=== PATIENT | female | born 1975 | race Caucasian/White ===

== ENCOUNTER 2016-07-26 09:41 | Outpatient (CLI) | payer MEDICAID ==
[~2016-07-26] VITALS: Ht 157.5 cm; Wt 60.0 kg
[~2016-07-26 09:41] MED LIST: CHOL500019 PO; CLON0.5T3; CLON0.5T3 PO; CLON1TAB PO; CLON2TAB3 PO; CYCL10TA9 PO; D50KC PO; DOXY100C42 PO; FERR325C PO; GABA-488 PO; HYDR25CA PO; NAPR-243 PO; ONDA8TAB13 PO; OSLT75CRX PO; TOPI15CA6 PO; TOPI25TA2 PO; TRAM50TA2 PO
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
[2016-07-26 09:52] VITALS: BP 118/79
[2016-07-26] MEDS ORDERED: CHOL2000 PO (09:56)
[2016-07-26] MEDS ORDERED: TOPI100T11 PO (09:56)
[2016-07-26] MEDS ORDERED: DULO60CA6 PO (09:58)
[2016-07-26] MEDS ORDERED: TIZA4TAB3 PO (09:58)
[2016-07-26] MEDS ORDERED: MULT1TAB69 PO (09:58)
[2016-07-26] MEDS ORDERED: MEDR10TA9 PO (09:58)
[2016-07-26] MEDS ORDERED: DULO30CA3 PO (09:58)
[2016-07-26] MEDS ORDERED: MAGN500C15 PO (10:25)
[2016-07-26 10:32] LABS: BASOPHILS % (AUTO) 1 % (0-10); EOSINOPHILS # (AUTO) 0.1 10^3/uL (0.0-0.3); EOSINOPHILS % (AUTO) 1 % (0-10); LYMPHOCYTES # (AUTO) 1.2 X 10^3 (1.0-4.0); LYMPHOCYTES % (AUTO) 16 % (12-44); MEAN CORPUSCULAR HEMOGLOBIN 24 PG (25-34); MEAN CORPUSCULAR HGB CONC 33 G/DL (32-36); MEAN CORPUSCULAR VOLUME 73 FL (80-99); MEAN PLATELET VOLUME 10.1 FL (7.4-10.4); MONOCYTES # (AUTO) 0.5 X 10^3 (0.0-1.0); MONOCYTES % (AUTO) 7 % (0-12); NEUTROPHILS # (AUTO) 5.5 X 10^3 (1.8-7.8); NEUTROPHILS % (AUTO) 75 % (42-75); PLATELET COUNT 381 10^3/uL (130-400); RED BLOOD COUNT 4.91 10^6/uL (4.35-5.85); RED CELL DISTRIBUTION WIDTH 14.6 % (10.0-14.5); WHITE BLOOD COUNT 7.3 10^3/uL (4.3-11.0)
[2016-07-26 10:50] LABS: ALANINE AMINOTRANSFERASE 34 U/L (0-55); ALBUMIN 4.6 G/DL (3.2-4.5); ANION GAP 8 MMOL/L (5-14); ASPARTATE AMINO TRANSFERASE 19 U/L (5-34); BLOOD UREA NITROGEN 9 MG/DL (7-18); BUN/CREATININE RATIO 12; CALCIUM 9.3 MG/DL (8.5-10.1); CARBON DIOXIDE 22 MMOL/L (21-32); CHLORIDE 109 MMOL/L (98-107); CREATININE SERUM 0.75 MG/DL (0.60-1.30); GFR ESTIMATED > 60; GLUCOSE 97 MG/DL (70-105); POTASSIUM 3.7 MMOL/L (3.6-5.0); SODIUM 139 MMOL/L (135-145); TOTAL PROTEIN 7.6 G/DL (6.4-8.2)
[2016-08-02] MEDS ORDERED: SIME80TA16 PO (15:36)
[2016-08-02] MEDS ORDERED: HYDR-3729 PO (15:36)
[2016-08-02] MEDS ORDERED: DOCU-143 PO (15:36)
[2016-08-02] MEDS ORDERED: IBUP-1773 PO (15:36)
== END 2016-07-26 10:25 | disposition home or self-care (01) ==
LOC: PREOP 09:41
PROVIDERS: ATTEND Obstetrics & Gynecology
DX: Z01.812 Encounter for preprocedural laboratory examination (principal); Z11.2 Encounter for screening for other bacterial diseases; D25.9 Leiomyoma of uterus, unspecified; N93.9 Abnormal uterine and vaginal bleeding, unspecified; D50.9 Iron deficiency anemia, unspecified
CPT/HCPCS: 36415; 80053; 85025; 86850; 86900; 86901; 87081

== ENCOUNTER 2016-08-02 11:59 | Day surgery (SDC) | payer MEDICAID ==
[~2016-08-02] VITALS: Ht 157.5 cm; Wt 60.0 kg
[~2016-08-02 11:59] MED LIST changes: +CHOL2000 PO; +DULO30CA3 PO; +DULO60CA6 PO; +MAGN500C15 PO; +MEDR10TA9 PO; +MULT1TAB69 PO; +TIZA4TAB3 PO; +TOPI100T11 PO
--- OUTSIDE RECORDS SUMMARY | 2016-08-02 12:03 | XMS REPORT | Continuity of Care Document ---
Author Author [facility] Organization [facility] Address Unknown Phone Unavailable Care Team Providers Care [employer] Field Technician Name Role Phone Amy Li [phone] Source Comments Some departments are not documenting in the electronic medical record. If you do not see the information that you expected, contact Release of Information in the Health Information Management department at [phone] for further assistance in locating additional records.[facility] Active Allergies and Adverse Reactions Allergen [...] Taken Blood Pressure 127/79 06/22/2016 9:48 AM PRACTICE CONSULTANT Pulse 113 06/22/2016 9:48 AM PRACTICE CONSULTANT Temperature 36.3 C (97.4 F) 06/22/2016 9:48 AM PRACTICE CONSULTANT Respiratory Rate 16 06/22/2016 9:48 AM PRACTICE CONSULTANT Height 1.575 m (5' 2") 06/22/2016 9:48 AM PRACTICE CONSULTANT Weight 62.143 kg (137 lb) 06/22/2016 9:48 AM PRACTICE CONSULTANT Body Mass Index 25.05 06/22/2016 9:48 AM PRACTICE CONSULTANT Oxygen Saturation 100% 06/22/2016 9:48 AM PRACTICE CONSULTANT Plan of Care Date Type Specialty Providers Description 09/14/2016 Appointment Anesthesia Pain Sergio Haney MD [address] [place] [address] [phone] (Fax) Health Maintenance Due Date Last Done Comments Physical (Comprehensive) 1981 Exam Pertussis Vaccine 1985 Tetanus Vaccine 1991 Influenza Vaccine 03/18/2016 Cervical Cancer Screening 09/04/2018 09/04/2015 Results from Last 3 Months Not on file
--- OUTSIDE RECORDS SUMMARY | 2016-08-02 12:03 | XMS REPORT | Continuity of Care Document ---
Author Author [facility] Organization [facility] Address Unknown Phone Unavailable Care Team Providers Care Risk Assessment Analyst Name Role Phone Amy Li [phone] Source Comments Some departments are not documenting in the electronic medical record. If you do not see the information that you expected, contact Release of Information in the Health Information Management department at [phone] for further assistance in locating additional records.[facility] Active Allergies and Adverse Reactions Allergen [...] Description 06/22/2016 Office Visit Anesthesia Pain Sergio aHney MD Fibromyalgia syndrome (Primary Dx); Amplified musculoskeletal pain, diffuse 05/03/2016 Refill Anesthesia Pain Sergio Haney MD Social History Tobacco Use Types Packs/Day Years Used Date Never Smoker Smokeless Tobacco: Never Used Alcohol Use Drinks/Week oz/Week Comments No 0 Standard 0.0 drinks or equivalent Last Filed Vital Signs Vital Sign Reading Time Taken Blood Pressure 127/79 06/22/2016 9:48 AM CIGAR MACHINE FEEDER Pulse 113 06/22/2016 9:48 AM CIGAR MACHINE FEEDER Temperature 36.3 C (97.4 F) 06/22/2016 9:48 AM CIGAR MACHINE FEEDER Respiratory Rate 16 06/22/2016 9:48 AM CIGAR MACHINE FEEDER Height 1.575 m (5' 2") 06/22/2016 9:48 AM CIGAR MACHINE FEEDER Weight 62.143 kg (137 lb) 06/22/2016 9:48 AM CIGAR MACHINE FEEDER Body Mass Index 25.05 06/22/2016 9:48 AM CIGAR MACHINE FEEDER Oxygen Saturation 100% 06/22/2016 9:48 AM CIGAR MACHINE FEEDER Plan of Care Date Type Specialty Providers Description 09/14/2016 Appointment Anesthesia Pain Sergio Haney MD [address] [place] [address] [phone] (Fax) Health Maintenance Due Date Last Done Comments Physical (Comprehensive) 1981 Exam Pertussis Vaccine 1985 Tetanus Vaccine 1991 Influenza Vaccine 03/18/2016 Cervical Cancer Screening 09/04/2018 09/04/2015 Results from Last 3 Months Not on file
[2016-08-02] MEDS ORDERED: ceFAZolin 1,000 MG (ANCEF) VIAL ONE (12:21)
[2016-08-02] MEDS ORDERED: metroNIDAZOLE 500MG/100ML IVPB 100 ML ONE (12:22)
[2016-08-02] MEDS ORDERED: NORMAL SALINE (BAXTER MINI) 50 ML IV ONE (12:22)
[2016-08-02] MEDS: LACTATED RINGERS 1,000 ML IV PRN ×3 (12:38→15:40)
[2016-08-02] MEDS ORDERED: SEVOFLURANE (ULTANE) 15 ML INHAL SOLN ONE ×3 (12:39→15:21)
[2016-08-02] MEDS ORDERED: ROCURONIUM 50 MG/5 ML (ZEMURON) VIAL IV ONE ×2 (12:39→14:26)
[2016-08-02] MEDS ORDERED: proPOfol 200 MG/20 ML (DIPRIVAN) VIAL IV ONE (12:39)
[2016-08-02] MEDS ORDERED: DEXAMETHASONE PF 10 MG/ML (DECADRON) VIAL ONE (12:39)
[2016-08-02] MEDS ORDERED: LACTATED RINGERS 1,000 ML IV ONE ×3 (12:39→15:21)
[2016-08-02] MEDS ORDERED: fentaNYL INJECTION 250 MCG/5 ML AMP ONE (12:39)
[2016-08-02] MEDS ORDERED: LIDOCAINE PF 2% 10 ML (XYLOCAINE) AMP ONE (12:39)
[2016-08-02] MEDS ORDERED: ONDANSETRON 4 MG/2 ML (SDV) Z0FRAN ONE ×2 (12:39→14:41)
--- NOTE | 2016-08-02 12:41 | Progress Note-Standard ---
Standard Progress Note Progress Notes/Assess & Plan Date Seen 08/02/16 Assess & Plan/Chief Complaint H&P from 07/26/16: Gynecology Visit * Patient: MARCIA GEORGE Age: 41 years Sex: Female : 1975 Associated Diagnoses: None Author: Allison LANGLEY, Dolores Visit Information Visit type: Scheduled follow-up. Accompanied by: No one. Source of history: Self, Medical record. Referral source: Self. History limitation: None. 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 Reports still bleeding off and on but not heavy. History of Present Illness Here for pre-op visit Bleeding/spotting off and on, taking provera TID Still would like to proceed with hysterectomy. See last HPI: 41 y/o here for referral for AUB, HMB, fibroids Pt reports that she had a Nexplanon placed last year for contraception. She bled daily for 8 months and it was subsequently removed. She then was put on Depo Provera (in November 2015) as well as tried OCPs for irregular bleeding which as continued. She reports continued heavy bleeding every 14-18 days, lasting 5- 7 days, heavy for first 3 days changing a super tampon per hour. Everytime she changes her tampon, she has large clots. Previously (before Nexplanon) had normal monthly cycles, not heavy, no clots. No dizziness/lightheadedness/CP/ SOA. Does interfere with her work (on her feet all day at [employer] where she works). She believes she is finished childbearing. OBHx: 1991 1998 @33 wga 4lb 2002 2008 GYNHx: Menses 13 x 14-18 x 5-7, heavy as above. Last pap smear Mar 2016 by Cheryl Russell (record received and reviewed, NIL). Remote h/o chlamydia 13 years ago, none since. Not currently sexually active, 20 lifetime partners. Review of Systems General - negative except per HPI Skin - negative except per HPI HEENT - negative except per HPI Breasts - negative except per HPI Respiratory - negative except per HPI Cardiovascular - negative except per HPI Gastrointestinal - negative except per HPI Urinary - negative except per HPI Gynecologic - see HPI 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 - negative except per HPI Endocrine - negative except per HPI Hematologic - negative except per HPI Neurologic - negative except per HPI Psychiatric - negative except per HPI Health Status Allergies: Allergic Reactions (Selected) Severity Not Documented Amoxicillin (No reactions were documented) Sulfa drug (No reactions were documented) Medications: (Selected) Prescriptions Prescribed medroxyPROGESTERone 10 mg oral tablet: See Instructions, Instructions: TAKE 1 TABLET BY MOUTH THREE TIMES DAILY, # 90 tab(s), 0 Refill(s), Type: Maintenance, Pharmacy: [facility] [id number] Documented Medications Documented Cymbalta: po, 0 Refill(s), Type: Maintenance Feosol 325 mg (65 mg elemental iron) oral tablet: 1 tab(s) ( 325 mg ), po, bid, 0 Refill(s), Type: Maintenance KlonoPIN: ( 3 mg ), po, daily, 0 Refill(s), Type: Maintenance Topamax: po, bid, 0 Refill(s), Type: Maintenance Vitamin D3 2000 intl units oral capsule: 1 cap(s) ( 2,000 International Unit ), po, daily, 0 Refill(s), Type: Maintenance magnesium oxide: po, 0 Refill(s), Type: Maintenance multivitamin with minerals (w/ Iron): 0 Refill(s), Type: Maintenance tiZANidine 4 mg oral capsule: 2 cap(s) ( 8 mg ), po, tid, 0 Refill(s), Type: Maintenance Problem list: All Problems (Selected) Iron deficiency / SNOMED CT [id number] / Confirmed Vitamin D deficiency / SNOMED CT [id number] / Confirmed Hematochezia / SNOMED CT 1791737370 / Confirmed Anemia / SNOMED CT 615229988 / Confirmed Depression / SNOMED CT [id number] / Confirmed Fibromyalgia / SNOMED CT 470934214 / Confirmed Histories Past Medical History: Active Iron deficiency ([id number]) Vitamin D deficiency ([id number]) Hematochezia (6117826287) Depression ([id number]) Fibromyalgia (873964849) Resolved (514963738): Onset on 02/10/2008 at 33 years. Resolved on 10/26/2008 at 33 years. ([id number]): Onset on 10/31/2001 at 26 years. Resolved on 07/24/2002 at 27 years. ([id number]): Onset on 03/25/1998 at 23 years. Resolved on 11/18/1998 at 23 years. ([id number]): Onset on 10/07/1991 at 16 years. Resolved on 07/06/1992 at 17 years. Lyme disease (06600232): Resolved. (751308595): Resolved. Family History: CA - Breast cancer Mother Diabetes mellitus type II Grandfather (P) Breast Ca Mother Alzheimer disease Grandfather (P) Hyperlipidemia..... Father Procedure history: Scope/camera, device ([id number]). Comments: 10/15/2014 10:06 AM - Vidya Wells colon/egd Social History: Tobacco Assessment Never smoker Physical Examination Vital Signs 07/26/2016 10:41 AM OIL FILTERS INSPECTOR Systolic Blood Pressure 118 mmHg Diastolic Blood Pressure 66 mmHg Mean Arterial Pressure 83 mmHg BP Site Left arm Measurements from flowsheet : Measurements 07/26/2016 10:41 AM OIL FILTERS INSPECTOR Height Measured - Standard 62 in Weight Measured - Standard 133 lb BSA 1.62 m2 Body Mass Index 24.32 kg/m2 General: Alert and oriented, No acute distress. Respiratory: Respirations are non-labored. Cardiovascular: Normal peripheral perfusion. Psychiatric: Cooperative, Appropriate mood & affect. Review / Management Results review: Lab results 06/18/2016 12:20 PM OIL FILTERS INSPECTOR TSH 0.469 uIU/mL WBC 7.3 RBC 4.79 Hgb 11.4 g/dL LOW Hct 35.7 % LOW MCV 74.5 fL LOW MCH 23.8 pg LOW MCHC 31.9 g/dL RDW CV 15.4 % HI RDW (sd) 40.9 fL MPV 10.[address] 385 Lymphocytes % 19.3 % Abs Lymphs 1.41 Neutrophils % 67.0 % Abs Neutrophils 4.89 Monocytes % 11.4 % Abs Monocytes 0.83 HI Eosinophils % 1.8 % Abs Eosinophils 0.13 Basophils % 0.5 % Abs Basophils 0.04 Impression and Plan Plan: 41 y/o with AUB, HMB, uterine fibroids, iron deficiency anemia here for pre-op visit, RA TLH/bilat salpingectomy scheduled 08/02/16. Fibromyalgia on cymbalta Endometrial bx neg CBC - iron deficiency anemia TSH - nml Procedure was discussed, risks were also reviewed. Informed consent obtained today (written consent prior to OR). All questions were answered and patient was given information on preparation for surgery. Previously given packet on da Rod hysterectomy. Risks: She is aware of the risks of surgery, including injury to the bowel/bladder/ ureter/vessels and nerves which may need to be repaired intraoperatively or postoperatively. She is also aware of the risk of bowel/ureteral/bladder fistula. Other risks including infection, DVT/PE, wound separation/cellulitis/ evisceration, pulmonary/cardiac complications or were also discussed. She is also aware of the potential need for blood transfusion and risks associated with blood, including HIV, Hepatitis. She is aware of the risks of perforation of the bowel/blood vessels during insertion of the ports. She is aware of the risk of conversion to an open approach (especially of concern given multiple fibroids, and I would not advise power morcellation in this case). She is also aware of the risks that can be noted during or after a robotic approach, including cautery injury to the bowel/bladder/ureter/vessels. This may require intraoperative repair and conversion to open. May develop postoperatively which may require repair. She is aware of injury to nerves/musculoskeletal system which can be permanent and disabling. She is aware that although the hysterectomy will stop her uterine bleeding and she can no longer become . She is aware of my plan for ovarian preservation, along with bilateral salpingectomy to decrease risk of ovarian cancer although it is not eliminated. She is not on blood thinners. She does not take a beta monty. She does not require a bowel prep. . Signature Line Signed and Authored by Dolores Cooper MD on 07/26/2016 08:40 PM OIL FILTERS INSPECTOR Charted Date: July 26, 2016 8:35 PM OIL FILTERS INSPECTOR Subject / Title: Gynecology Visit * Performed By: Dolores Cooper MD on July 26, 2016 8:40 PM OIL FILTERS INSPECTOR Electronically Signed By: Dolores Cooper MD on July 26, 2016 8:40 PM OIL FILTERS INSPECTOR Visit Information: [id number], [facility], Outpatient, 07/26/2016 - 07/28/2016 DOLORES COOPER MD Aug 02, 2016 12:41
[2016-08-02] MEDS ORDERED: LACTATED RINGERS 1,000 ML IV PRN ×2 (12:44→12:45)
[2016-08-02] MEDS ORDERED: MIDAZOLAM 2 MG/2 ML (VERSED) VIAL IV ONE ×2 (12:45)
[2016-08-02] MEDS ORDERED: ceFAZolin 1 GM/NS 50 ML IVPB IV ONE ×2 (12:45)
[2016-08-02] MEDS ORDERED: metroNIDAZOLE 500 MG/100 ML IVPB (PRE-MIX) IV ONE (12:45)
[2016-08-02 12:52] VITALS: BP 118/84
[2016-08-02] MEDS ORDERED: BUP/EPI 0.25% 1:200,000 (MARCAINE) 30 ML VIAL ONE (13:20)
[2016-08-02] MEDS ORDERED: GLYCOPYRROLATE 0.2 MG/ML (ROBINUL) 2 ML VIAL ONE (14:04)
[2016-08-02] MEDS ORDERED: morphine INJ 10 MG/ML 1ML (SYR OR VIAL) ONE (14:41)
[2016-08-02] MEDS ORDERED: KETOROLAC 30 MG/ML VIAL ONE (14:41)
--- NOTE | 2016-08-02 15:29 | Progress Note-Post Operative ---
Post-Operative Progess Note Pre-Operative Diagnosis UTERINE FIBROIDS, AUB, IRON DEFICIENCY ANEMIA Post-Operative Diagnosis Same Post-Op Procedure Note Date of Procedure: Aug 02, 2016 Name of Procedure: Robotic assisted total laparoscopic hysterectomy, bilateral salpingectomy Procedure Note/Findings See dictated note Anesthesia Type General Estimated blood loss (mL): Minimal Packing: None Specimen(s) collected Uterus/cervix, bilateral tubes to pathology JAIRO LENZ MD Aug 02, 2016 15:29
[2016-08-02] MEDS ORDERED: DOCU-143 PO (15:36)
[2016-08-02] MEDS ORDERED: SIME80TA16 PO (15:36)
[2016-08-02] MEDS ORDERED: HYDR-3729 PO (15:36)
[2016-08-02] MEDS ORDERED: IBUP-1773 PO (15:36)
--- NOTE | 2016-08-02 15:37 | Discharge Inst-Women's Service ---
Discharge Inst-Women's Serv Depart Medication/Instructions New, Converted or Re-Newed RX: RX on Chart Final Diagnosis Uterine fibroids, abnormal uterine bleeding, iron deficiency anemia Consults/Follow Up Additional Follow Up: Yes Orders/Referrals 10-[address] Cooper Activity Driving Instructions: No Driving for 1 Week (or off narcotic pain medications or until instructed by your insurance company) NO SMOKING: NO SMOKING Nothing Inside Vagina: No Douching, No [place], No Tampons Other Activity No heavy lifting > 10 lb, no strenuous activity until cleared by Dr. Cooper Diet Discharge Diet: No Restrictions Symptoms to Report to : Bleeding Excessive, Pain Increased, Fever Over 101 Degrees F, Pain/Pressure in Chest, Vaginal Bleeding Increase, Dizziness/Fainting , Nausea/Vomiting, Shortness of Breath For Any Problems or Questions: Contact Your Physician Skin/Wound Care Infection Signs and Symptoms: Increased Redness, Foul Odor of Wound, Increased Drainage Operative Area Clean and Dry: Keep Incision Clean/Dry Stitches/Nick/Dermabond: Dermabond Bathing Instructions: JAIRO Chowdhury MD Aug 02, 2016 15:37
[2016-08-02] MEDS ORDERED: MEPERIDINE (DEMEROL) INJ 50 MG/ML IVP PRN (16:00)
[2016-08-02] MEDS ORDERED: ONDANSETRON 4 MG/2 ML (SDV) Z0FRAN IVP PRN (16:00)
[2016-08-02] MEDS: morphine INJ 10 MG/ML 1ML (SYR OR VIAL) IVP PRN ×2 (16:25→16:35)
--- NOTE | 2016-08-02 16:27 | OB/GYN Operative Report ---
Operative Report Date of Procedure: August 02, 2016 Preoperative Diagnosis: 41 y/o female with uterine fibroids, abnormal uterine bleeding, iron deficiency anemia Postoperative Diagnosis: Same Procedure: Robotic assisted total laparoscopic hysterectomy, bilateral salpingectomy Surgeon: Dolores Cooper MD Anesthesia: General endotracheal Estimated Blood Loss: Minimal Specimens: Uterus/cervix, bilateral fallopian tubes to pathology Indications for Procedure: This is a 41 year old female with symptomatic uterine fibroids, abnormal uterine bleeding and iron deficiency anemia who was referred [place] by Cheryl Russell with [facility]. Pre-operative work- up revealed a normal endometrial biopsy. Risks, benefits and alternatives were discussed in detail with the patient and she elected to proceed and provided informed consent. Findings: Normal appearing uterus (fibroids likely submucosal in nature). Bilateral ovaries normal in appearance, conserved. Bilateral tubes normal with exception of small right paratubal cyst. Normal appearing liver, bowel, stomach , bladder, appendix. Procedure: The patient was taken to the operating room where sequential compression devices were placed prior to induction of anesthesia. Intravenous fluids were running. General endotracheal anesthesia was obtained without difficulty. Padmini- operative Ancef and Flagyl were administered. She was then repositioned in the dorsal lithotomy position with the use of Yellofin stirrups. She was prepped and draped in the typical sterile fashion. A lundberg catheter was placed in the bladder. A weighted speculum was placed in the vagina. The anterior lip of the cervix was grasped with a single tooth tenaculum. The uterus was sounded to 8cm. The medium sized V-Care uterine manipulator was then placed in the uterus to allow for manipulation, and the occluder balloon was insufflated. Gloves were changed and the attention was turned to the abdomen. 0.25% marcaine was injected into the skin where the planned incision was to be made. A 12 mm incision was made approximately 3cm superior to the umbilicus. The Veress needle was advanced into the peritoneal cavity in the umbilicus. The opening pressure was 3mm Hg. CO2 gas was then utilized to insufflate the abdomen to a pressure of 15 mmHg. The Veress needle was then removed and an 8mm trochar was advanced into the peritoneal cavity. This was confirmed with the camera. An intra-abdominal survey revealed lack of injury to the underlying structures. 0.25% marcaine was then injected on the left 10cm lateral and 2-3 cm inferior to the original incision for an 8 mm port site. We injected on the right side as well, for an 8 mm port site 10cm lateral and 2-3cm inferior to the original incision.. All ports were then placed under direct visualization. The patient was then placed in steep Trendelenburg position. The robot was then brought in from the patient's left side for side-docking, and docking was accomplished without difficulty. I then started the robotic portion of the procedure, with the fenestrated biopolar device in the left arm and the monopolar scissors in the right. The distal left uterine tube was grasped and the monopolar shirlene were utilized to dissect it away from the ovary and off the mesosalpinx in a proximal direction, leaving the proximal most portion attached to the uterus. The left utero- ovarian ligament was isolated, coagulated and transected. I continued this dissection in an anterior direction, opening the broad ligament and then dissecting the anterior peritoneum off the lower uterine segment and creating a bladder flap. I then moved to the right side after the uterus was moved laterally to the left. The distal right uterine tube was grasped and the monopolar shirlene were utilized to dissect it away from the ovary and off the mesosalpinx in a proximal direction, leaving the proximal most portion attached to the uterus. The utero-ovarian ligament was coagulated and transected. The dissection was continued in an anterior direction, opening the broad ligament and dissecting the anterior peritoneum off the lower uterine segment and completing the bladder flap. The posterior leaves of the broad ligament were then dissected and the uterine artery was skeletonized. The uterine artery was then isolated, coagulated and transected on the right. The vessels were allowed to fall away laterally. The same was completed on the left, with the posterior leaves of the broad ligament dissected and the uterine artery was skeletonized. The left uterine artery was then isolated, coagulated and transected. The vessels were allowed to fall away laterally. I started the colpotomy on the right side medial to the coagulated uterine artery. The blue cervical cup was noted. The colpotomy was continued in a clockwise direction and completed anteriorly. The uterus was then delivered through the vagina without difficulty. The vaginal cuff was then closed with 2-0 V-loc, starting with the left apex, incorporating the uterosacral ligament. The suture was not long enough to close the entire length of the cuff, thus another was utilized starting at the right apex, incorporating the uterosacral ligament. Following this, the vaginal cuff was noted to be hemostatic. All pedicles were inspected and were noted to be hemostatic. The robot was then undocked. FloSeal was placed on all pedicles to aid in hemostasis. The vaginal cuff was examined digitally and found to be intact. It was noted at this time that urine was not draining adequately from the bladder and the tip of the lundberg was found to be slightly adherent to the bladder wall (we were unable to deflate the lundberg balloon with the typical empty syringe). The urine was clear which had thus far drained from the bladder. The tip of the catheter was cut and a new lundberg catheter was placed into the bladder with sterile technique. I then instructed the OR staff to backfill the bladder with 180cc of normal saline; the bladder was intact without evidence of injury under this laparoscopic examination. Following this, one final check of the abdomen revealed adequate hemostasis. The gas was then allowed to escape the abdomen and all instruments were removed from the abdomen. The skin was closed using 4-0 Monocryl in a subcuticular stitch. Following the case, instrument counts were correct. The patient was repositioned in the supine position and awakened from general anesthesia without difficulty. She was taken to recovery in stable condition. She will be observed overnight. Urine was blood tinged but this was thought to be due to excessive bladder manipulation during the case due to the events noted above; this will be closely monitored overnight. Complications: None Disposition: Recovery, stable DOLORES COOPER MD Aug 02, 2016 16:27
[2016-08-02 17:15] VITALS: BP 116/78
[2016-08-02] MEDS ORDERED: LACTATED RINGERS 1,000 ML IV SCH (17:17)
[2016-08-02] MEDS ORDERED: ANTACID SUSP 30 ML UDC (MYLANTA) PO PRN (17:30)
[2016-08-02] MEDS ORDERED: DOCUSATE SODIUM 100 MG (COLACE) CAP PO PRN (17:30)
[2016-08-02] MEDS ORDERED: clonazePAM 1 MG (KlonoPIN) TAB PO PRN (17:30)
[2016-08-02] MEDS ORDERED: HYDROcodone/APAP 7.5 MG/325 MG (LORTAB, LORCET PLUS) TABLET PO PRN (17:30)
[2016-08-02] MEDS ORDERED: KETOROLAC 30 MG/ML VIAL IV PRN (17:30)
[2016-08-02] MEDS ORDERED: ZOLPIDEM 5 MG (AMBIEN) TAB PO PRN (17:30)
[2016-08-02] MEDS ORDERED: SIMETHICONE 80 MG (MYLICON) CHEW PO PRN (17:30)
[2016-08-02] MEDS ORDERED: ONDANSETRON 4 MG/2 ML (SDV) Z0FRAN IV PRN (17:30)
[2016-08-02 21:00] VITALS: BP 96/58
[2016-08-02] MEDS ORDERED: toPIRamate 100 MG (TOPAMAX) TAB PO SCH (21:00)
[2016-08-03 00:30] VITALS: BP 93/58
[2016-08-03 04:00] VITALS: BP 118/72
[2016-08-03] MEDS ORDERED: IBUPROFEN 600 MG (MOTRIN) TAB PO PRN (08:15)
[2016-08-03 08:25] VITALS: BP 107/53
[2016-08-03] MEDS ORDERED: DULoxetine 30 MG (CYMBALTA) CAP PO SCH (09:00)
== END 2016-08-03 09:30 | disposition home or self-care (01) ==
LOC: SDC 11:59 → WS 17:19 → SDC 08-03 09:30
PROVIDERS: ATTEND Obstetrics & Gynecology
DX: D25.0 Submucous leiomyoma of uterus (principal); D25.1 Intramural leiomyoma of uterus; D50.0 Iron deficiency anemia secondary to blood loss (chronic); N83.8 Other noninflammatory disorders of ovary, fallopian tube and broad ligament; N72 Inflammatory disease of cervix uteri
CPT/HCPCS: 84703; 94664; 96361; 96375

== ENCOUNTER 2016-10-05 14:29 | Emergency (ER) | payer MEDICAID ==
[~2016-10-05] VITALS: Ht 157.5 cm; Wt 60.3 kg
[~2016-10-05 14:29] MED LIST changes: +DOCU-143 PO; +HYDR-3729 PO; +IBUP-1773 PO; +SIME80TA16 PO
[2016-10-05] MEDS ORDERED: DULO60CA6 PO (14:57)
[2016-10-05] MEDS ORDERED: TETANUS,DIPTH,PERTUSS P/F (BOOSTRIX) 0.5 ML VIAL IM ONE (15:00)
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
[2016-10-05] MEDS ORDERED: HYDR-3816 PO (15:44)
[2016-10-05] MEDS ORDERED: CEFP500T4 PO (15:44)
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
[2016-10-05 15:51] VITALS: BP 127/87
== END 2016-10-05 15:51 | disposition home or self-care (01) ==
LOC: EDUNIT# 14:29 → ER 14:31
DX: S02.2XXA Fracture of nasal bones, initial encounter for closed fracture (principal); H11.32 Conjunctival hemorrhage, left eye; S00.12XA Contusion of left eyelid and periocular area, initial encounter; R04.0 Epistaxis; Z23 Encounter for immunization; Y04.0XXA Assault by unarmed brawl or fight, initial encounter; Y92.009 Unspecified place in unspecified non-institutional (private) residence as the place of occurrence of the external cause; Y99.8 Other external cause status
CPT/HCPCS: 70450; 70486; 90471; 99283

== ENCOUNTER 2016-11-21 18:23 | Emergency (ER) | payer OTHER, MEDICAID ==
[~2016-11-21] VITALS: Ht 157.5 cm; Wt 58.1 kg
[~2016-11-21 18:23] MED LIST changes: +CEFP500T4 PO; +HYDR-3816 PO
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
[2016-11-21 21:40] VITALS: BP 126/80
== END 2016-11-21 21:40 | disposition home or self-care (01) ==
LOC: EDUNIT# 18:23 → ER 18:24
DX: S66.911A Strain of unspecified muscle, fascia and tendon at wrist and hand level, right hand, initial encounter (principal); S16.1XXA Strain of muscle, fascia and tendon at neck level, initial encounter; S50.01XA Contusion of right elbow, initial encounter; V43.52XA Car driver injured in collision with other type car in traffic accident, initial encounter; Y92.414 Local residential or business street as the place of occurrence of the external cause; Y99.8 Other external cause status
CPT/HCPCS: 99282

== ENCOUNTER → 2017-01-11 | Outpatient (CLI) | payer MEDICAID, OTHER ==
--- NOTE | 2017-01-11 17:20 | Diagnostic Imaging Report ---
EXAMINATION: Transabdominal and transvaginal pelvic ultrasound. INDICATION: Pelvic pain. History of hysterectomy. FINDINGS: The uterus is surgically absent. The urinary bladder appears unremarkable. The right ovary is 2.9 x 1.9 x 1.6 cm with venous and arterial waveforms demonstrated. The hypoechoic lesion measuring 1.7 x 1 x 1.2 cm within the right ovary is seen, indeterminate. This could be related to a hemorrhagic follicle. It is slightly heterogenous with no definitive blood flow within it. The left ovary is obscured by bowel gas. IMPRESSION: Indeterminate 1.7 cm hypoechoic lesion within the right ovary, possibly related to a hemorrhagic follicle. The left ovary is not seen. Dictated by: Dictated on workstation # [id number]
== END ==
LOC: RAD 09:56
PROVIDERS: ATTEND Obstetrics & Gynecology
DX: N83.9 Noninflammatory disorder of ovary, fallopian tube and broad ligament, unspecified (principal); Z90.710 Acquired absence of both cervix and uterus; R10.2 Pelvic and perineal pain
CPT/HCPCS: 76830; 76856

== ENCOUNTER 2017-07-25 16:14 | Observation (INO) | payer MEDICAID ==
[~2017-07-25] VITALS: Ht 157.5 cm; Wt 54.7 kg
--- NOTE | 2017-07-25 16:20 | ED Psychosocial ---
General Stated Complaint: OVERDOSE Source: patient, EMS Exam Limitations: no limitations History of Present Illness Time seen by provider: 16:19 Initial Comments EMS called by a friend with reports of overdose. Patient took 15-20 tizanidine 4mg at about 3 or 3:15 this afternoon. She did this because she wanted to go to sleep and never wake up. She is more depressed than usual today because she's having an affair and she cannot find them and she is having an affair with today. Allergies and Home Medications Allergies Coded Allergies: Sulfa (Sulfonamide Antibiotics) (Verified Allergy, Unknown, 11/21/16) amoxicillin (Verified Allergy, Unknown, RASH, 07/26/16) Home Medications Cefprozil 500 Mg Tablet, 500 MG PO BID, #20 Prescribed by: BASIM KITCHEN on 10/05/16 1544 Clonazepam 1 Mg Tablet, 1 MG PO TID, (Reported) Duloxetine HCl 60 Mg Capsule.dr, 120 MG PO DAILY, (Reported) Hydrocodone/Acetaminophen 1 Each Tablet, 1-2 EACH PO Q4H, #20 Prescribed by: BASIM KITCHEN on 10/05/16 1544 Tizanidine HCl 4 Mg Tablet, 2-4 MG PO TID PRN for MUSCLE SPASMS, (Reported) take 1/2 to 1 (4mg) tab Topiramate 100 Mg Tablet, 100 MG PO HS, (Reported) Constitutional: see HPI EENTM: see HPI Respiratory: no symptoms reported Cardiovascular: no symptoms reported Genitourinary: no symptoms reported 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: no symptoms reported Skin: no symptoms reported Psychiatric/Neurological: No Symptoms Reported Past Jfxzqxa-Mnttok-Rusudv Hx Patient Social History Recent Foreign Travel: No Contact w/Someone Who Travel: No Recent Hopitalizations: No Immunizations Up To Date Tetanus Booster (TDap): Unknown Date of Influenza Vaccine: Apr 25, 2016 Seasonal Allergies Seasonal Allergies: No Surgeries Surgeries: Hysterectomy Neurological Neurological Disorders: Headaches /Migraines Reproductive System Hx Reproductive Disorders: Yes (UTERINE FIBROIDS, AUB) 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 Disorders: Fibromyalgia HEENT Loss of Vision: Bilateral Hearing Impairment: Denies Psychosocial Behavioral Health Disorders: Anxiety Family Medical History Family Medial History: Alcoholism 19 FATHER Diabetes mellitus 19 FATHER FH: breast cancer 19 MOTHER Hypertension 19 FATHER Psychosocial problem 19 MOTHER Physical Exam Vital Signs Vital Sign - Last 12Hours 07/25/17 16:29 Temp 98.3 Pulse 60 Resp 18 B/P (MAP) 148/85 (106) Pulse Ox 98 Capillary Refill : General Appearance: WD/WN, no apparent distress HEENT: PERRL/EOMI, normal ENT inspection Neck: non-tender, full range of motion Respiratory: no respiratory distress, no accessory muscle use Cardiovascular: regular rate, rhythm, no murmur Gastrointestinal: normal bowel sounds, non tender, soft Neurologic/Psychiatric: alert, oriented x 3, other (arousable to verbal stimuli , listless) Appearance/Memory: appropriate appearance, appropriate insight Behavior/Eye Contact: cooperative, good eye contact Skin: normal color, warm/dry Progress/Results/Core Measures Results/Orders Lab Results Laboratory Tests Test 07/25/17 16:24 07/25/17 17:12 Range/Units White Blood Count 9.6 4.3-11.0 10^3/uL Red Blood Count 4.48 4.35-5.85 10^6/uL Hemoglobin 11.3 L 11.5-16.0 G/DL Hematocrit 33 L 35-52 % Mean Corpuscular Volume 74 L 80-99 FL Mean Corpuscular Hemoglobin 25 25-34 PG Mean Corpuscular Hemoglobin Concent 34 32-36 G/DL Red Cell Distribution Width 13.8 10.0-14.5 % Platelet Count 430 H 130-400 10^3/uL Mean Platelet Volume 9.9 7.4-10.4 FL Neutrophils (%) (Auto) 78 H 42-75 % Lymphocytes (%) (Auto) 15 12-44 % Monocytes (%) (Auto) 6 0-12 % Eosinophils (%) (Auto) 2 0-10 % Basophils (%) (Auto) 1 0-10 % Neutrophils # (Auto) 7.5 1.8-7.8 X 10^3 Lymphocytes # (Auto) 1.4 1.0-4.0 X 10^3 Monocytes # (Auto) 0.5 0.0-1.0 X 10^3 Eosinophils # (Auto) 0.1 0.0-0.3 10^3/uL Basophils # (Auto) 0.1 0.0-0.1 10^3/uL Sodium Level 139 135-145 MMOL/L Potassium Level 3.7 3.6-5.0 MMOL/L Chloride Level 110 H 98-107 MMOL/L Carbon Dioxide Level 21 21-32 MMOL/L Anion Gap 8 5-14 MMOL/L Blood Urea Nitrogen 8 7-18 MG/DL Creatinine 0.71 0.60-1.30 MG/DL Estimat Glomerular Filtration Rate > 60 BUN/Creatinine Ratio 11 Glucose Level 239 H 70-105 MG/DL Calcium Level 8.4 L 8.5-10.1 MG/DL Total Bilirubin 1.0 0.1-1.0 MG/DL Aspartate Amino Transf (AST/SGOT) 15 5-34 U/L Alanine Aminotransferase (ALT/SGPT) 15 0-55 U/L Alkaline Phosphatase 65 40-136 U/L Total Protein 6.8 6.4-8.2 GM/DL Albumin 3.7 3.2-4.5 GM/DL Salicylates Level < 5.0 L 5.0-20.0 MG/DL Acetaminophen Level < 10 L 10-30 UG/ML Serum Alcohol < 10 <10 MG/DL Urine Color YELLOW Urine Clarity SLIGHTLY CLOUDY Urine pH 7 5-9 Urine Specific [place] 1.010 L 1.016-1.022 Urine Protein 2+ H NEGATIVE Urine Glucose (UA) NEGATIVE NEGATIVE Urine Ketones 1+ H NEGATIVE Urine Nitrite NEGATIVE NEGATIVE Urine Bilirubin NEGATIVE NEGATIVE Urine Urobilinogen 4 H NORMAL MG/DL Urine Leukocyte Esterase 1+ H NEGATIVE Urine RBC (Auto) NEGATIVE NEGATIVE Urine RBC NONE /HPF Urine WBC 0-2 /HPF Urine Squamous Epithelial Cells 25-50 H /HPF Urine Crystals NONE /LPF Urine Bacteria LARGE H /HPF Urine Casts NONE /LPF Urine Mucus LARGE H /LPF Urine Culture Indicated NO Urine Test NEGATIVE NEGATIVE Urine Opiates Screen NEGATIVE NEGATIVE Urine Oxycodone Screen NEGATIVE NEGATIVE Urine Methadone Screen NEGATIVE NEGATIVE Urine Propoxyphene Screen NEGATIVE NEGATIVE Urine Barbiturates Screen NEGATIVE NEGATIVE Ur Tricyclic Antidepressants Screen NEGATIVE NEGATIVE Urine Phencyclidine Screen NEGATIVE NEGATIVE Urine Amphetamines Screen NEGATIVE NEGATIVE Urine Methamphetamines Screen NEGATIVE NEGATIVE Urine Benzodiazepines Screen NEGATIVE NEGATIVE Urine Cocaine Screen NEGATIVE NEGATIVE Urine Cannabinoids Screen NEGATIVE NEGATIVE My Orders Orders - JULIO HERNANDEZ NOZZLE TENDER Cbc With Automated Diff (07/25/17 16:18) Comprehensive Metabolic Panel (07/25/17 16:18) Ua Culture If Indicated (07/25/17 16:18) Drug Screen Stat (Urine) (07/25/17 16:18) Urine Bedside (1/8/18 16:18) Ekg Tracing (07/25/17 16:18) Salicylate (07/25/17 16:18) Acetaminophen (07/25/17 16:18) Alcohol (07/25/17 16:18) Saline Lock/Iv-Start (07/25/17 16:18) Hcg,Qualitative Urine (07/25/17 17:23) Vital Signs/I&O Vital Sign - Last 12Hours 07/25/17 16:29 Temp 98.3 Pulse 60 Resp 18 B/P (MAP) 148/85 (106) Pulse Ox 98 Departure Communication (Admissions) Time/Spoke to Admitting Phy: 17:46 Communication I spoke with Dr. Elisha Rosen. We will admit the patient, observe, consult social insurance adviser in the morning or guarding inpatient psychiatric placement. Progress Notes 1665 I spoke with poison control center. They state that symptoms to watch for bradycardia, hypotension, confusion and first-degree AV block. We should obtain a typical overdose workup, serial EKGs with the next EKG in 2 hours, Narcan if she becomes respiratory depressed. IV fluids for any hypotension and norepinephrine if she is unresponsive to those fluids observation for 6 hours. Impression Impression: Primary Impression: Drug overdose Additional Impression: Suicidal behavior Disposition: ADMITTED INPATIENT Condition: Stable Admissions Decision to Admit Reason: Admit from ER (General) Decision to Admit/Date: Jul 25, 2017 Time/Decision to Admit Time: 17:47 Transfer Time Spoke to Accepting Phy: 17:47 Departure-Patient Inst. Referrals: YUSRA JIMENEZ (PCP) Primary Care Physician [facility] (Family) Primary Care Physician JULIO HERNANDEZ APRN Jul 25, 2017 16:20
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
--- OUTSIDE RECORDS SUMMARY | 2017-07-25 16:20 | XMS REPORT | Continuity of Care Document ---
Author Author [facility] Organization [facility] Address Unknown Phone Unavailable Care Team Providers Care Occasional Caregiver Name Role Phone [employer] Unavailable Unavailable Problems Medications Allergies, Adverse Reactions, Alerts Immunizations Results Vital Signs Encounters Location Location Details Encounter Type Encounter Number Reason For Visit Attending Provider ADM Date DC Date Status Source OUTPATIENT [id number] [facility] 12/31/2015 12/31/2015 Active [facility] OUTPATIENT [id number] [facility] 03/29/2017 Active [facility] OUTPATIENT [id number] BG [facility] 04/19/2017 Active [facility] OUTPATIENT [id number] BG [facility] 04/26/2017 Active [facility] OUTPATIENT [id number] BG [facility] 07/26/2017 Active [facility] O Active [facility] Procedures Plan of Care Social History Assessment and Plan Family History Advance Directives Functional Status
--- OUTSIDE RECORDS SUMMARY | 2017-07-25 16:20 | XMS REPORT | Encounter Summary ---
Author Author [facility] Organization [facility] Address Unknown Phone Unavailable Care Team Providers Care Advanced Manufacturing Engineer Name Role Phone PCP Unavailable Reason for Visit * Reason Comments Medication Refill Encounter Details Date Type Department Care Team Description 07/20/2017 Refill [facility] Anesthesia Lucia Arias RN Fibromyalgia syndrome Pain Clinic [address] [place] [address] [facility] [place], [place] [id number] Social History Tobacco Use Types Packs/Day Years Used Date Never Smoker Smokeless Tobacco: Never Used Alcohol Use Drinks/Week oz/Week Comments No 0 Standard 0.0 drinks or equivalent Sex Assigned at Date Recorded Not on file as of this encounter Functional Status Functional Status Response [...] impairment: No 04/26/2017 as of this encounter Miscellaneous Notes * Telephone Encounter - Lucia Arias RN - 07/20/2017 3:20 PM GENERAL ADMINISTRATOR Refill request for Cymbalta 60 mg 2 caps po daily Last office visit 04/26/2017. Follow up appointment 07/26/2017. Refill per protocol. in this encounter Plan of Treatment Not on fileas of this encounter Visit Diagnoses Diagnosis Fibromyalgia syndrome Mylagia and myositis, unspecified in this encounter
--- OUTSIDE RECORDS SUMMARY | 2017-07-25 16:20 | XMS REPORT | Encounter Summary ---
Author Author [facility] Organization [facility] Address Unknown Phone Unavailable Care Team Providers Care Credit Counselor Name Role Phone PCP Unavailable Reason for Visit * Reason Comments Medication Refill Encounter Details Date Type Department Care Team Description 06/20/2017 Refill [facility] Anesthesia Lucia Arias RN Amplified musculoskeletal Pain Clinic pain, diffuse [address] [facility] [place] [address] Social History Tobacco Use Types Packs/Day Years [...] Telephone Encounter - Lucia Arias RN - 06/20/2017 6:32 PM FLUORESCENT SOLUTION MIXER Request for tizanidine 4 mg refill. Take 1/2 to 1 tab po tid prn muscle spasm. Last fill 05/25/2017 Last visit: 04/26/2017 Next visit. 07/26/2017 Provider notified. in this encounter Plan of Treatment Not on fileas of this encounter Visit Diagnoses Diagnosis Amplified musculoskeletal pain, diffuse Mylagia and myositis, unspecified in this encounter
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
--- OUTSIDE RECORDS SUMMARY | 2017-07-25 16:22 | XMS REPORT ---
Author Author MATTHIEU GRAYSON Organization [facility] Address [address] [place] [address] Care Team Providers Care Taffy Puller Name Role Phone MATTHIEU GRAYSON Unavailable PROBLEMS Type Condition ICD9-CM Code [id number] Code Onset Dates Condition Status SNOMED Code Problem Fibromyalgia M79.7 Active 152144430 Problem Screening breast examination Z12.39 Active 572840569 Problem Migraine without aura and with status migrainosus, not intractable G43.001 Active 484877951 Problem Post concussion syndrome F07.81 Active 25335220 Problem History of thyroid nodule Z86.39 Active Problem Dysmenorrhea N94.6 Active 186881355 Problem Metrorrhagia N92.1 Active 70763611 Problem Routine gynecological examination Z01.419 Active 617320188 Problem History of abnormal cervical Pap smear Z87.898 Active 018157776 Problem Vitamin D deficiency 268.9 Active 31537115 Problem Major depressive disorder, recurrent episode, mild with anxious distress F33.0 Active 597410965 Problem Generalized anxiety disorder F41.1 Active 334120604 Problem Uterine leiomyoma, unspecified location D25.9 Active 59381259 Problem Personality disorder, unspecified F60.9 Active 72565357 ALLERGIES Unknown Allergies SOCIAL HISTORY No smoking Hx information available PLAN OF CARE Activity Details Follow Up 2 Weeks Reason: Follow-up VITAL SIGNS MEDICATIONS Unknown Medications RESULTS No Results PROCEDURES Procedure Date Ordered Related Diagnosis Body Site Psychotherapy, patient &/family, 30 minutes, established patient Jul 01, 2016 IMMUNIZATIONS No Known Immunizations
--- OUTSIDE RECORDS SUMMARY | 2017-07-25 16:22 | XMS REPORT ---
Author Author MATTHIEU GRAYSON Organization [facility] Address [address] [place] [address] Care Team Providers Care Investigator Cash Shortage Name Role Phone MATTHIEU GRAYSON Unavailable PROBLEMS Type Condition ICD9-CM Code GQW85-MZ Code Onset Dates Condition Status SNOMED Code Problem Fibromyalgia M79.7 Active 752944963 Problem Screening breast examination Z12.39 Active 500704371 Problem Migraine without aura and with status migrainosus, not intractable G43.001 Active 158070386 Problem Post concussion syndrome F07.81 Active 52419089 Problem History of thyroid nodule Z86.39 Active Problem Dysmenorrhea N94.6 Active 927920172 Problem Metrorrhagia N92.1 Active 26851976 Problem Routine gynecological examination Z01.419 Active 810238937 Problem History of abnormal cervical Pap smear Z87.898 Active 367602792 Problem Vitamin D deficiency 268.9 Active 95620064 Problem Major depressive disorder, recurrent episode, mild with anxious distress F33.0 Active 128865942 Problem Generalized anxiety disorder F41.1 Active 173080306 Problem Uterine leiomyoma, unspecified location D25.9 Active 72446515 Problem Personality disorder, unspecified F60.9 Active 20310397 ALLERGIES Unknown Allergies SOCIAL HISTORY No smoking Hx information available PLAN OF CARE Activity Details Follow Up 2 Weeks Reason: Follow-up VITAL SIGNS MEDICATIONS Unknown Medications RESULTS No Results PROCEDURES Procedure Date Ordered Related Diagnosis Body Site Psychotherapy, patient &/family, 30 minutes, established patient Jul 15, 2016 IMMUNIZATIONS No Known Immunizations
--- OUTSIDE RECORDS SUMMARY | 2017-07-25 16:22 | XMS REPORT ---
Author Author Sachi KAREEM [facility] Address [address] [place] [address] Care Team Providers Care Insurance Risk Analyst Name Role Phone sandraKAREEM River Unavailable PROBLEMS Type Condition ICD9-CM Code SFZ79-AI Code Onset Dates Condition Status SNOMED Code Problem Migraine without aura and with status migrainosus, not intractable G43.001 Active 762222011 Problem Screening breast examination Z12.39 Active 256467870 Problem Fibromyalgia M79.7 Active 738927773 Problem Post concussion syndrome F07.81 Active 02453727 Problem History of thyroid nodule Z86.39 Active Problem Dysmenorrhea N94.6 Active 754392118 Problem Routine gynecological examination Z01.419 Active 706307702 Problem History of abnormal cervical Pap smear Z87.898 Active 047339179 Problem Metrorrhagia N92.1 Active 57782482 Problem Vitamin D deficiency 268.9 Active 24749428 Problem Major depressive disorder, recurrent episode, mild with anxious distress F33.0 Active 330669841 Problem Generalized anxiety disorder F41.1 Active 691259918 Problem Uterine leiomyoma, unspecified location D25.9 Active 94426777 Problem Personality disorder, unspecified F60.9 Active 19444640 ALLERGIES Substance Reaction Event Type Date Status Sulfamethoxazole-Trimethoprim Unknown Drug Allergy Jul, Active Amoxicillin Unknown Drug Allergy Jul, Active SOCIAL HISTORY No smoking Hx information available PLAN OF CARE Activity Details Follow Up 09/02/16, 4 Weeks Reason: VITAL SIGNS Height 62 in 2016-07-29 Weight 133.5 lbs 2016-07-29 Heart Rate 100 bpm 2016-07-29 Respiratory Rate 20 2016-07-29 BMI 24.41 kg/m2 2016-07-29 Blood pressure systolic 103 mmHg 2016-07-29 Blood pressure diastolic 67 mmHg 2016-07-29 MEDICATIONS Medication Instructions Dosage Frequency Start Date End Date Duration Status Multivitamin Adult Active Vitamin D 1000 UNIT Orally Once a day 1 tablet 24h Active Cymbalta 30 MG Orally Once a day 1 capsule 24h Active Iron 325 (65 Fe) MG Orally Once a day 1 tablet 24h Active Klonopin 1 MG Orally daily 1 tablet am and 2 at HS prn anxiety 24h 20 Sep, 2014 Active Cymbalta 60 MG Orally Once a day 1 capsule 24h Active Provera 10 mg Orally 3 times a day 1 tablet 8h Active Topamax 100 MG TAKE ONE TABLET BY MOUTH ONCE DAILY 90 Active Tizanidine HCl 4 MG Orally Three times a day 1 tablet as needed 8h Active RESULTS No Results PROCEDURES Procedure Date Ordered Related Diagnosis Body Site Office Visit, Est Pt., Level 3 Jul 29, 2016 IMMUNIZATIONS No Known Immunizations
--- OUTSIDE RECORDS SUMMARY | 2017-07-25 16:22 | XMS REPORT ---
Author Author Sachi KAREEM Organization [facility] Address [address] [place] [address] Care Team Providers Care Supervisor Tile And Mottle Name Role Phone sandraKAREEM River Unavailable PROBLEMS Type Condition ICD9-CM Code DFC26-KG Code Onset Dates Condition Status SNOMED Code Problem Migraine without aura and with status migrainosus, not intractable G43.001 Active 027915090 Problem Screening breast examination Z12.39 Active 164474346 Problem Fibromyalgia M79.7 Active 391158784 Problem Post concussion syndrome F07.81 Active 13952644 Problem History of thyroid nodule Z86.39 Active Problem Dysmenorrhea N94.6 Active 932156579 Problem Routine gynecological examination Z01.419 Active 628505513 Problem History of abnormal cervical Pap smear Z87.898 Active 992652437 Problem Metrorrhagia N92.1 Active 04239696 Problem Vitamin D deficiency 268.9 Active 32205322 Problem Major depressive disorder, recurrent episode, mild with anxious distress F33.0 Active 187228060 Problem Generalized anxiety disorder F41.1 Active 633977830 Problem Uterine leiomyoma, unspecified location D25.9 Active 22008307 Problem Personality disorder, unspecified F60.9 Active 30208952 ALLERGIES No Information SOCIAL HISTORY Never Assessed PLAN OF CARE VITAL SIGNS MEDICATIONS Medication Instructions Dosage Frequency Start Date End Date Duration Status Klonopin 1 MG Orally BID and one additional tab daily prn breakthrough anxiety 1 tablet Sep, 30 days Active RESULTS No Results PROCEDURES No Known procedures [...]
--- OUTSIDE RECORDS SUMMARY | 2017-07-25 16:22 | XMS REPORT ---
Author Author MATTHIEU GRAYSON [facility] Address [address] [place] [address] Care Team Providers Care Commanding Officer Garage Name Role Phone MATTHIEU GRAYSON Unavailable PROBLEMS Type Condition ICD9-CM Code GTB10-UY Code Onset Dates Condition Status SNOMED Code Problem Migraine without aura and with status migrainosus, not intractable G43.001 Active 138140642 Problem Screening breast examination Z12.39 Active 945239963 Problem Fibromyalgia M79.7 Active 141113424 Problem Post concussion syndrome F07.81 Active 14809485 Problem History of thyroid nodule Z86.39 Active Problem Dysmenorrhea N94.6 Active 976442678 Problem Routine gynecological examination Z01.419 Active 937565338 Problem History of abnormal cervical Pap smear Z87.898 Active 486326426 Problem Metrorrhagia N92.1 Active 48983410 Problem Vitamin D deficiency 268.9 Active 60983392 Problem Major depressive disorder, recurrent episode, mild with anxious distress F33.0 Active 861190124 Problem Generalized anxiety disorder F41.1 Active 838678303 Problem Uterine leiomyoma, unspecified location D25.9 Active 67693934 Problem Personality disorder, unspecified F60.9 Active 09826418 ALLERGIES Unknown Allergies SOCIAL HISTORY No smoking Hx information available PLAN OF CARE VITAL SIGNS MEDICATIONS Unknown Medications RESULTS No Results PROCEDURES No Known procedures IMMUNIZATIONS No Known Immunizations
--- OUTSIDE RECORDS SUMMARY | 2017-07-25 16:23 | XMS REPORT ---
Author Author Sachi KAREEM [facility] Address [address] [place] [address] Care Team Providers Care Sand Polisher Name Role Phone sandraDanielHANNAHSYDNEYY Unavailable PROBLEMS Type Condition ICD9-CM Code WSX90-DY Code Onset Dates Condition Status SNOMED Code Problem Migraine without aura and with status migrainosus, not intractable G43.001 Active 604447991 Problem Screening breast examination Z12.39 Active 488206008 Problem Fibromyalgia M79.7 Active 624833546 Problem Post concussion syndrome F07.81 Active 31985523 Problem History of thyroid nodule Z86.39 Active Problem Dysmenorrhea N94.6 Active 060709936 Problem Routine gynecological examination Z01.419 Active 743185058 Problem History of abnormal cervical Pap smear Z87.898 Active 878937090 Problem Metrorrhagia N92.1 Active 84537674 Problem Vitamin D deficiency 268.9 Active 55497395 Problem Major depressive disorder, recurrent episode, mild with anxious distress F33.0 Active 202067891 Problem Generalized anxiety disorder F41.1 Active 972069858 Problem Uterine leiomyoma, unspecified location D25.9 Active 59690863 Problem Personality disorder, unspecified F60.9 Active 08655585 ALLERGIES Substance Reaction Event Type Date Status Sulfamethoxazole-Trimethoprim Unknown Drug Allergy Aug, Active Amoxicillin Unknown Drug Allergy Aug, Active SOCIAL HISTORY Never Assessed PLAN OF CARE Activity Details Follow Up 2 Months Reason: VITAL SIGNS Height 62 in 2016-09-02 Weight 133.4 lbs 2016-09-02 Heart Rate 104 bpm 2016-09-02 Respiratory Rate 20 2016-09-02 BMI 24.40 kg/m2 2016-09-02 Blood pressure systolic 97 mmHg 2016-09-02 Blood pressure diastolic 62 mmHg 2016-09-02 MEDICATIONS Medication Instructions Dosage Frequency Start Date End Date Duration Status Iron 325 (65 Fe) MG Orally Once a day 1 tablet 24h Active Tizanidine HCl 4 MG Orally Three times a day 1 tablet as needed 8h Active Topamax 100 MG TAKE ONE TABLET BY MOUTH ONCE DAILY 90 Active Cymbalta 60 MG Orally Twice a day 1 capsule 12h 30 days Active Provera 10 mg Orally 3 times a day 1 tablet 8h Active Cymbalta 30 MG Orally Once a day 1 capsule 24h Active Vitamin D 1000 UNIT Orally Once a day 1 tablet 24h Active Multivitamin Adult Active Klonopin 1 MG Orally BID and one [...]
--- OUTSIDE RECORDS SUMMARY | 2017-07-25 16:23 | XMS REPORT ---
Author Author YUSRA JIMENEZ [facility] Address [address] [place] [address] Care Team Providers Care Back Tender Cylinder Name Role Phone YUSRA JIMENEZ Unavailable PROBLEMS Type Condition ICD9-CM Code GEA40-RB Code Onset Dates Condition Status SNOMED Code Problem Migraine without aura and with status migrainosus, not intractable G43.001 Active 239845831 Problem Screening breast examination Z12.39 Active 645893679 Problem Fibromyalgia M79.7 Active 101898728 Problem Post concussion syndrome F07.81 Active 98138369 Problem History of thyroid nodule Z86.39 Active Problem Dysmenorrhea N94.6 Active 452428281 Problem Routine gynecological examination Z01.419 Active 330629060 Problem History of abnormal cervical Pap smear Z87.898 Active 418162423 Problem Metrorrhagia N92.1 Active 91937551 Problem Vitamin D deficiency 268.9 Active 96812107 Problem Major depressive disorder, recurrent episode, mild with anxious distress F33.0 Active 739871390 Problem Generalized anxiety disorder F41.1 Active 795492784 Problem Uterine leiomyoma, unspecified location D25.9 Active 06914395 Problem Personality disorder, unspecified F60.9 Active 04418420 ALLERGIES Substance Reaction Event Type Date Status Sulfamethoxazole-Trimethoprim Unknown Drug Allergy Sep, Active Amoxicillin Unknown Drug Allergy Sep, Active SOCIAL HISTORY Never Assessed PLAN OF CARE Activity Details Follow Up Dr. Ortiz Reason: VITAL SIGNS Height 62 in 2016-10-06 Weight 131.7 lbs 2016-10-06 Temperature 98.6 degrees Fahrenheit 2016-10-06 Heart Rate 88 bpm 2016-10-06 Respiratory Rate 18 2016-10-06 BMI 24.09 kg/m2 2016-10-06 Blood pressure systolic 132 mmHg 2016-10-06 Blood pressure diastolic 78 mmHg 2016-10-06 MEDICATIONS Medication Instructions Dosage Frequency Start Date End Date Duration Status Provera 10 mg Orally 3 times a day 1 tablet 8h Active Topamax 100 MG TAKE ONE TABLET BY MOUTH ONCE DAILY 90 Active Tizanidine HCl 4 MG Orally Three times a day 1 tablet as needed 8h Active Cymbalta 60 MG Orally Twice a day 1 capsule 12h 30 days Active Vitamin D 1000 UNIT Orally Once a day 1 tablet 24h Active Iron 325 (65 Fe) MG Orally Once a day 1 tablet 24h Active Cymbalta 30 MG Orally Once a day 1 capsule 24h Active [place] 7.5-325 MG Orally every 6 hrs 1 tablet as needed 6h Active Multivitamin Adult Active Cefprozil 500 MG Orally Once a day 1 tablet 24h Active Klonopin 1 MG Orally BID and [...]
--- OUTSIDE RECORDS SUMMARY | 2017-07-25 16:23 | XMS REPORT ---
Author Author MATTHIEU GRAYSON Organization [facility] Address [address] [place] [address] Care Team Providers Care University Services Program Associate Name Role Phone MATTHIEU GRAYSON Unavailable PROBLEMS Type Condition ICD9-CM Code YDW71-DO Code Onset Dates Condition Status SNOMED Code Problem Migraine without aura and with status migrainosus, not intractable G43.001 Active 652196368 Problem Screening breast examination Z12.39 Active 656145104 Problem Fibromyalgia M79.7 Active 813482962 Problem Post concussion syndrome F07.81 Active 40650857 Problem History of thyroid nodule Z86.39 Active Problem Dysmenorrhea N94.6 Active 432093711 Problem Routine gynecological examination Z01.419 Active 062674288 Problem History of abnormal cervical Pap smear Z87.898 Active 898117888 Problem Metrorrhagia N92.1 Active 77815709 Problem Vitamin D deficiency 268.9 Active 13035084 Problem Major depressive disorder, recurrent episode, mild with anxious distress F33.0 Active 898881435 Problem Generalized anxiety disorder F41.1 Active 152104851 Problem Uterine leiomyoma, unspecified location D25.9 Active 07319449 Problem Personality disorder, unspecified F60.9 Active 15352182 ALLERGIES No Information SOCIAL HISTORY Never Assessed PLAN OF CARE Activity Details Follow Up 2 Weeks Reason: Follow-up VITAL SIGNS MEDICATIONS Unknown Medications RESULTS No Results PROCEDURES Procedure Date Ordered Result Body Site Psychotherapy, patient &/family, 30 minutes, established patient Aug 19, 2016 IMMUNIZATIONS No Known Immunizations MEDICAL (GENERAL) HISTORY [...]
--- OUTSIDE RECORDS SUMMARY | 2017-07-25 16:23 | XMS REPORT ---
Author Author MATTHIEU GRAYSON Organization [facility] Address [address] [place] [address] Care Team Providers Care Enterprise Application Developer Name Role Phone MATTHIEU GRAYSON Unavailable PROBLEMS Type Condition ICD9-CM Code VKD85-LH Code Onset Dates Condition Status SNOMED Code Problem Migraine without aura and with status migrainosus, not intractable G43.001 Active 514021825 Problem Screening breast examination Z12.39 Active 888214683 Problem Fibromyalgia M79.7 Active 724406733 Problem Post concussion syndrome F07.81 Active 20696291 Problem History of thyroid nodule Z86.39 Active Problem Dysmenorrhea N94.6 Active 206403765 Problem Routine gynecological examination Z01.419 Active 319513005 Problem History of abnormal cervical Pap smear Z87.898 Active 617941415 Problem Metrorrhagia N92.1 Active 69122679 Problem Vitamin D deficiency 268.9 Active 99565270 Problem Major depressive disorder, recurrent episode, mild with anxious distress F33.0 Active 685473481 Problem Generalized anxiety disorder F41.1 Active 830286195 Problem Uterine leiomyoma, unspecified location D25.9 Active 33320217 Problem Personality disorder, unspecified F60.9 Active 57092401 ALLERGIES No Information SOCIAL HISTORY Never Assessed PLAN OF CARE Activity Details Follow Up 4 Weeks Reason: Follow-up VITAL SIGNS MEDICATIONS Unknown Medications RESULTS No Results PROCEDURES Procedure Date Ordered Result Body Site Psychotherapy, patient &/family, 30 minutes, established patient September 30, 2016 IMMUNIZATIONS No Known Immunizations MEDICAL (GENERAL) [...]
--- OUTSIDE RECORDS SUMMARY | 2017-07-25 16:23 | XMS REPORT ---
Author Author MATTHIEU GRAYSON Organization [facility] Address [address] [place] [address] Care Team Providers Care Financial Analysis Advisor Name Role Phone MATTHIEU GRAYSON Unavailable PROBLEMS Type Condition ICD9-CM Code YJF00-FH Code Onset Dates Condition Status SNOMED Code Problem Migraine without aura and with status migrainosus, not intractable G43.001 Active 349710657 Problem Screening breast examination Z12.39 Active 137585423 Problem Fibromyalgia M79.7 Active 537938194 Problem Post concussion syndrome F07.81 Active 46329838 Problem History of thyroid nodule Z86.39 Active Problem Dysmenorrhea N94.6 Active 466548309 Problem Routine gynecological examination Z01.419 Active 100752911 Problem History of abnormal cervical Pap smear Z87.898 Active 828612396 Problem Metrorrhagia N92.1 Active 13798146 Problem Vitamin D deficiency 268.9 Active 58571747 Problem Major depressive disorder, recurrent episode, mild with anxious distress F33.0 Active 573182015 Problem Generalized anxiety disorder F41.1 Active 997194040 Problem Uterine leiomyoma, unspecified location D25.9 Active 22173212 Problem Personality disorder, unspecified F60.9 Active 84613883 ALLERGIES No Information SOCIAL HISTORY Never Assessed PLAN OF CARE Activity Details Follow Up 2 Weeks Reason: Follow-up VITAL SIGNS MEDICATIONS Unknown Medications RESULTS No Results PROCEDURES Procedure Date Ordered Result Body Site Psychotherapy, patient &/family, 30 minutes, established patient Sep 02, 2016 IMMUNIZATIONS No Known Immunizations MEDICAL (GENERAL) [...]
--- OUTSIDE RECORDS SUMMARY | 2017-07-25 16:24 | XMS REPORT ---
Author Author MATTHIEU GRAYSON Organization [facility] Address [address] [place] [address] Care Team Providers Care Canceling And Cutting Control Clerk Name Role Phone MATTHIEU GRAYSON Unavailable PROBLEMS Type Condition ICD9-CM Code DSZ70-[place] Code Onset Dates Condition Status SNOMED Code Problem Migraine without aura and with status migrainosus, not intractable G43.001 Active 425429343 Problem Screening breast examination Z12.39 Active 405254851 Problem Fibromyalgia M79.7 Active 265891783 Problem Post concussion syndrome F07.81 Active 17413683 Problem History of thyroid nodule Z86.39 Active Problem Dysmenorrhea N94.6 Active 375386139 Problem Routine gynecological examination Z01.419 Active 032116448 Problem History of abnormal cervical Pap smear Z87.898 Active 610453633 Problem Metrorrhagia N92.1 Active 80795584 Problem Vitamin D deficiency 268.9 Active 16815192 Problem Major depressive disorder, recurrent episode, mild with anxious distress F33.0 Active 827803247 Problem Generalized anxiety disorder F41.1 Active 642027087 Problem Uterine leiomyoma, unspecified location D25.9 Active 58582869 Problem Personality disorder, unspecified F60.9 Active 66270288 ALLERGIES Unknown Allergies SOCIAL HISTORY No smoking Hx information available PLAN OF CARE Activity Details Follow Up Next available Reason:BH Follow-up VITAL SIGNS MEDICATIONS Unknown Medications RESULTS No Results PROCEDURES Procedure Date Ordered Related Diagnosis Body Site Psychotherapy, patient &/family, 30 minutes, established patient Jul 29, 2016 IMMUNIZATIONS No Known Immunizations
--- OUTSIDE RECORDS SUMMARY | 2017-07-25 16:28 | XMS REPORT | Continuity of Care Document ---
Author Author [facility] Address Unknown Phone Unavailable Allergies Active Description Code Type Severity Reaction Onset Reported/Identified Relationship to Patient Clinical Status Yes Sulfa (Sulfonamide Antibiotics) Drug Allergy N/A N/A 01/03/2009 Yes sulfa drug Drug Allergy 01/03/2009 Yes Celexa Drug Allergy N/A N/A 05/04/2010 Yes Celexa Drug Allergy 05/04/2010 Yes amoxicillin [id number] Drug Allergy Unknown RASH 07/26/2016 Yes Sulfa (Sulfonamide Antibiotics) [id number] Drug Allergy Unknown N/A 2016 Medications There is no data. Problems Date Dx Coded Attending Type Code Diagnosis Diagnosed By 08/21/2008 V22.1 Pc Other Normal 08/21/2008 V22.1 Pc Other Normal 08/21/2008 V22.1 Pc Other Normal 08/21/2008 V22.1 Pc Other Normal 08/21/2008 V22.1 Pc Other Normal 08/21/2008 V22.1 Pc Other Normal 08/21/2008 V22.1 Pc Other Normal 08/21/2008 V22.1 Pc Other Normal 08/21/2008 V22.1 Pc Other Normal 08/21/2008 V22.1 Pc Other Normal 08/21/2008 KATERINE LOPEZ APRN V22.1 Pc Other Normal 08/21/2008 [facility] [place] R V22.1 Pc Other Normal 08/21/2008 [facility] [place] V22.1 Pc Other Normal 08/21/2008 [facility] [place] V22.1 Pc Other Normal 08/21/2008 [facility] [place] V22.1 Pc Other Normal 08/21/2008 [facility] [place] V22.1 Pc Other Normal 08/21/2008 [place] VAL[place] APRN V22.1 Pc Other Normal 08/21/2008 [facility] [place] R V22.1 Pc Other Normal 08/21/2008 KATERINE LOPEZ APRN V22.1 Pc Other Normal 08/21/2008 [facility] [place] V22.1 Pc Other Normal 08/21/2008 [facility] [place] V22.1 Pc Other Normal 08/21/2008 [facility] [place] V22.1 Pc Other Normal 08/21/2008 KATERINE LOPEZ APRN V22.1 Pc Other Normal 08/21/2008 KATERINE LOPEZ APRN V22.1 Pc Other Normal 08/21/2008 KATERINE LOPEZ APRN V22.1 Pc Other Normal 08/21/2008 [facility] [place] V22.1 Pc Other Normal 08/21/2008 [place] A V22.1 Pc Other Normal 08/21/2008 [facility] [place] V22.1 Pc Other Normal 08/21/2008 [facility] [place] V22.1 Pc Other Normal 08/21/2008 [facility] [place] V22.1 Pc Other Normal 08/21/2008 [facility] [place] V22.1 Pc Other Normal 08/21/2008 [employer] A V22.1 Pc Other Normal 08/21/2008 [employer], YUSRA L V22.1 Pc Other Normal 08/21/2008 [employer], YUSRA L V22.1 Pc Other Normal 08/21/2008 [employer], YUSRA L V22.1 Pc Other Normal 08/21/2008 [employer], YUSRA L V22.1 Pc Other Normal 08/21/2008 [facility] [place] V22.1 Pc Other Normal 08/21/2008 [facility] [place] V22.1 Pc Other Normal 09/04/2008 V22.2 Incidental 09/04/2008 V22.2 Incidental 09/04/2008 V22.2 Incidental 09/04/2008 V22.2 Incidental 09/04/2008 V22.2 Incidental 09/04/2008 V22.2 Incidental 09/04/2008 V22.2 Incidental 09/04/2008 V22.2 Incidental 09/04/2008 V22.2 Incidental 09/04/2008 V22.2 Incidental 09/04/2008 KATERINE LOPEZ APRN V22.2 Incidental 09/04/2008 [facility] [place] V22.2 Incidental 09/04/2008 [facility] [place] V22.2 Incidental 09/04/2008 [facility] [place] V22.2 Incidental 09/04/2008 [facility] [place] V22.2 Incidental 09/04/2008 [facility] [place] V22.2 Incidental 09/04/2008 [place] A V22.2 Incidental 09/04/2008 [facility] [place] V22.2 Incidental 09/04/2008 KATERINE LOPEZ APRN V22.2 Incidental 09/04/2008 [facility] [place] V22.2 Incidental 09/04/2008 [facility] [place] V22.2 Incidental 09/04/2008 [facility] [place] V22.2 Incidental 09/04/2008 KATERINE LOPEZ APRN V22.2 Incidental 09/04/2008 KATERINE LOPEZ APRN V22.2 Incidental 09/04/2008 KATERINE LOPEZ APRN V22.2 Incidental 09/04/2008 [facility] [place] V22.2 Incidental 09/04/2008 [employer] A V22.2 Incidental 09/04/2008 [facility] [place] V22.2 Incidental 09/04/2008 [facility] [place] V22.2 Incidental 09/04/2008 [facility] [place] V22.2 Incidental 09/04/2008 [facility] [place] V22.2 Incidental 09/04/2008 [employer] A V22.2 Incidental 09/04/2008 YUSRA JIMENEZ APRN L V22.2 Incidental 09/04/2008 [employer], YUSRA L V22.2 Incidental 09/04/2008 [employer], YUSRA L V22.2 Incidental 09/04/2008 [employer], YUSRA L V22.2 Incidental 09/04/2008 [facility] [place] V22.2 Incidental 09/04/2008 [facility] [place] V22.2 Incidental 01/03/2009 V25.41 Visit For: Contraceptive Surveillance Pill 01/03/2009 V72.31 Pelvic Exam ( internal) 01/03/2009 V25.41 Visit For: Contraceptive Surveillance Pill 01/03/2009 V72.31 Pelvic Exam ( internal) 01/03/2009 V25.41 Visit For: Contraceptive Surveillance Pill 01/03/2009 V72.31 Pelvic Exam ( internal) 01/03/2009 V25.41 Visit For: Contraceptive Surveillance Pill 01/03/2009 V72.31 Pelvic Exam ( internal) 01/03/2009 V25.41 Visit For: Contraceptive Surveillance Pill 01/03/2009 V72.31 Pelvic Exam ( internal) 01/03/2009 V25.41 Visit For: Contraceptive Surveillance Pill 01/03/2009 V72.31 Pelvic Exam ( internal) 01/03/2009 V25.41 Visit For: Contraceptive Surveillance Pill 01/03/2009 V72.31 Pelvic Exam ( internal) 01/03/2009 V25.41 Visit For: Contraceptive Surveillance Pill 01/03/2009 V72.31 Pelvic Exam ( internal) 01/03/2009 V25.41 Visit For: Contraceptive Surveillance Pill 01/03/2009 V72.31 Pelvic Exam ( internal) 01/03/2009 V25.41 Visit For: Contraceptive Surveillance Pill 01/03/2009 V72.31 Pelvic Exam ( internal) 01/03/2009 KATERINE LOPEZ APRN V25.41 Visit For: Contraceptive Surveillance Pill 01/03/2009 KATERINE LOPEZ APRN V72.31 Pelvic Exam (internal) [facility]: [facility]internal) [facility]/03[facility]2009 [facility] Visit For: Contraceptive Surveillance Pill 01/03/2009 [facility] [place] V72.31 Pelvic Exam (internal) 01/03/2009 [facility] [place] V25.41 Visit For: Contraceptive Surveillance Pill 01/03/2009 [facility] V72.31 Pelvic Exam (internal) 01/03/2009 [facility] [place] V25.41 Visit For: Contraceptive Surveillance Pill 01/03/2009 [facility] [place] V72.31 Pelvic Exam (internal) 01/03/2009 [facility] [place] V25.41 Visit For: Contraceptive Surveillance Pill 01/03/2009 [facility] [place] V72.31 Pelvic Exam (internal) 01/03/2009 [place] VALDIV[place] APRN A V25.41 Visit For: Contraceptive Surveillance Pill 01/03/2009 SKIPOH Aiken APRN A V72.31 Pelvic Exam (internal) 01/03/2009 [facility] [place] V25.41 Visit For: Contraceptive Surveillance Pill 01/03/2009 [facility] [place] V72.31 Pelvic Exam (internal) 01/03/2009 KATERINE LOPEZ APRN V25.41 Visit For: Contraceptive Surveillance Pill 01/03/2009 KATERINE LOPEZ APRN V72.31 Pelvic Exam (internal) 01/03/2009 [facility] [place] V25.41 Visit For: Contraceptive Surveillance Pill 01/03/2009 [facility] [place] V72.31 Pelvic Exam (internal) 01/03/2009 [facility] [place] V25.41 Visit For: Contraceptive Surveillance Pill 01/03/2009 [facility] [place] V72.31 Pelvic Exam (internal) 01/03/2009 [facility] [place] V25.41 Visit For: Contraceptive Surveillance Pill 01/03/2009 [facility] [place] V72.31 Pelvic Exam (internal) 01/03/2009 KATERINE LOPEZ APRN V25.41 Visit For: Contraceptive Surveillance Pill 01/03/2009 KATERINE LOPEZ APRN V72.31 Pelvic Exam (internal) 01/03/2009 KATERINE LOPEZ APRN V25.41 Visit For: Contraceptive Surveillance Pill 01/03/2009 KATERINE LOPEZ APRN V72.31 Pelvic Exam (internal) 01/03/2009 KATERINE LOPEZ APRN V25.41 Visit For: Contraceptive Surveillance Pill 01/03/2009 KATERINE LOPEZ APRN V72.31 Pelvic Exam (internal) 01/03/2009 [facility] [place] V25.41 Visit For: Contraceptive Surveillance Pill 01/03/2009 [facility], [place] R V72.31 Pelvic Exam (internal) 01/03/2009 [employer] A V25.41 Visit For: Contraceptive Surveillance Pill 01/03/2009 [employer] A V72.31 Pelvic Exam (internal) 01/03/2009 [facility] [place] V25.41 Visit For: Contraceptive Surveillance Pill 01/03/2009 [facility] [place] V72.31 Pelvic Exam (internal) 01/03/2009 [facility] [place] V25.41 Visit For: Contraceptive Surveillance Pill 01/03/2009 [facility] [place] V72.31 Pelvic Exam (internal) 01/03/2009 [facility] [place] V25.41 Visit For: Contraceptive Surveillance Pill 01/03/2009 [facility] [place] V72.31 Pelvic Exam (internal) 01/03/2009 [facility] [place] V25.41 Visit For: Contraceptive Surveillance Pill 01/03/2009 [facility] [place] V72.31 Pelvic Exam (internal) 01/03/2009 [employer] A V25.41 Visit For: Contraceptive Surveillance Pill 01/03/2009 [employer] A V72.31 Pelvic Exam (internal) 01/03/2009 [employer], YUSRA L V25.41 Visit For: Contraceptive Surveillance Pill 01/03/2009 [employer], YUSRA L V72.31 Pelvic Exam (internal) 01/03/2009 [employer], YUSRA L V25.41 Visit For: Contraceptive Surveillance Pill 01/03/2009 [employer], YUSRA L V72.31 Pelvic Exam (internal) 01/03/2009 [employer], YUSRA L V25.41 Visit For: Contraceptive Surveillance Pill 01/03/2009 [employer], YUSRA L V72.31 Pelvic Exam (internal) 01/03/2009 [employer], YUSRA L V25.41 Visit For: Contraceptive Surveillance Pill 01/03/2009 [employer], YUSRA L V72.31 Pelvic Exam (internal) [facility]/03[facility] Visit For: Contraceptive Surveillance Pill 01/03/2009 [facility] [place] V72.31 Pelvic Exam (internal) 01/03/[facility] Visit For: Contraceptive Surveillance Pill 01/03/2009 [facility] [place] V72.31 Pelvic Exam (internal) 10/14/2009 623.5 Vaginal Discharge 10/14/2009 V25.40 Visit For: Contraceptive Surveillance 10/14/2009 623.5 Vaginal Discharge 10/14/2009 V25.40 Visit For: Contraceptive Surveillance 10/14/2009 623.5 Vaginal Discharge 10/14/2009 V25.40 Visit For: Contraceptive Surveillance 10/14/2009 623.5 Vaginal Discharge 10/14/2009 V25.40 Visit For: Contraceptive Surveillance 10/14/2009 623.5 Vaginal Discharge 10/14/2009 V25.40 Visit For: Contraceptive Surveillance 10/14/2009 623.5 Vaginal Discharge 10/14/2009 V25.40 Visit For: Contraceptive Surveillance 10/14/2009 623.5 Vaginal Discharge 10/14/2009 V25.40 Visit For: Contraceptive Surveillance 10/14/2009 623.5 Vaginal Discharge 10/14/2009 V25.40 Visit For: Contraceptive Surveillance 10/14/2009 623.5 Vaginal Discharge 10/14/2009 V25.40 Visit For: Contraceptive Surveillance 10/14/2009 623.5 Vaginal Discharge 10/14/2009 V25.40 Visit For: Contraceptive Surveillance 10/14/2009 KATERINE LOPEZ APRN 623.5 Vaginal Discharge 10/14/2009 KATERINE LOPEZ APRN V25.40 Visit For: Contraceptive Surveillance 10/14/2009 [facility] [place] 623.5 Vaginal Discharge 10/14/2009 [facility] Visit For: Contraceptive Surveillance 10/14/2009 [facility] [place] 623.5 Vaginal Discharge 10/14/2009 [facility] [place] V25.40 Visit For: Contraceptive Surveillance 10/14/2009 [facility], [place] R 623.5 Vaginal Discharge 10/14/2009 [facility], [place] V25.40 Visit For: Contraceptive Surveillance 10/14/2009 [facility], [place] R 623.5 Vaginal Discharge 10/14/2009 [facility], [place] V25.40 Visit For: Contraceptive Surveillance 10/14/2009 [facility], [place] R 623.5 Vaginal Discharge 10/14/2009 [facility], [place] V25.40 Visit For: Contraceptive Surveillance 10/14/2009 [employer] A 623.5 Vaginal Discharge 10/14/2009 [employer] A V25.40 Visit For: Contraceptive Surveillance 10/14/2009 [facility], [place] R 623.5 Vaginal Discharge 10/14/2009 [facility], [place] V25.40 Visit For: Contraceptive Surveillance 10/14/2009 KATERINE LOPEZ APRN D 623.5 Vaginal Discharge 10/14/2009 MARIAM LOPEZ APRNBETH D V25.40 Visit For: Contraceptive Surveillance 10/14/2009 [facility], [place] 623.5 Vaginal Discharge 10/14/2009 [facility] [place] V25.40 Visit For: Contraceptive Surveillance 10/14/2009 [facility], [place] R 623.5 Vaginal Discharge 10/14/2009 [facility], [place] V25.40 Visit For: Contraceptive Surveillance 10/14/2009 [facility], [place] R 623.5 Vaginal Discharge 10/14/2009 [facility], [place] V25.40 Visit For: Contraceptive Surveillance 10/14/2009 [employer]ÑOKATERINE D 623.5 Vaginal Discharge 10/14/2009 JOHN [employer] MECH[employer]ICMARIAMKATERINE D V25.40 Visit For: Contraceptive Surveillance 10/14/2009 [place] [employer] KATERINE D 623.5 Vaginal Discharge 10/14/2009 [employer], KATERINE D V25.40 Visit For: Contraceptive Surveillance 10/14/2009 [employer] MECH[employer]ICMARIAMKATERINE D 623.5 Vaginal Discharge 10/14/2009 KATERINE LOPEZ APRN V25.40 Visit For: Contraceptive Surveillance 10/14/2009 [facility], [place] R 623.5 Vaginal Discharge 10/14/2009 [facility], [place] V25.40 Visit For: Contraceptive Surveillance 10/14/2009 [employer] A 623.5 Vaginal Discharge 10/14/2009 [employer] A V25.40 Visit For: Contraceptive Surveillance 10/14/2009 [facility], [place] R 623.5 Vaginal Discharge 10/14/2009 [facility], [place] R V25.40 Visit For: Contraceptive Surveillance 10/14/2009 [facility], [place] R 623.5 Vaginal Discharge 10/14/2009 [facility], [place] V25.40 Visit For: Contraceptive Surveillance 10/14/2009 [facility], [place] R 623.5 Vaginal Discharge 10/14/2009 [facility], [place] V25.40 Visit For: Contraceptive Surveillance 10/14/2009 [facility], [place] R 623.5 [facility] [place] [facility] Visit For: Contraceptive Surveillance 10/14/2009 [employer] A 623.5 Vaginal Discharge 10/14/2009 [employer] A V25.40 Visit For: Contraceptive Surveillance 10/14/2009 [employer], YUSRA L 623.5 Vaginal Discharge 10/14/2009 [employer], YUSRA L V25.40 Visit For: Contraceptive Surveillance 10/14/2009 [employer], YUSRA L 623.5 Vaginal Discharge 10/14/2009 [employer], YUSRA L V25.40 Visit For: Contraceptive Surveillance 10/14/2009 [employer], YUSRA L 623.5 Vaginal Discharge 10/14/2009 [employer], YUSRA L V25.40 Visit For: Contraceptive Surveillance 10/14/2009 [employer], YUSRA L 623.5 Vaginal Discharge 10/14/2009 [employer], YUSRA L V25.40 Visit For: Contraceptive Surveillance 10/14/2009 [facility], [place] R 623.5 Vaginal Discharge 10/14/2009 [facility] [place] V25.40 Visit For: Contraceptive Surveillance 10/14/2009 [facility] [place] 623.5 Vaginal Discharge 10/14/2009 [facility] [place] V25.40 Visit For: Contraceptive Surveillance 11/12/2009 300.00 anxiety 11/12/2009 780.99 ANHEDONIA 11/12/2009 300.00 anxiety 11/12/2009 780.99 ANHEDONIA 11/12/2009 300.00 anxiety 11/12/2009 780.99 ANHEDONIA 11/12/2009 300.00 anxiety 11/12/2009 780.99 ANHEDONIA 11/12/2009 300.00 anxiety 11/12/2009 780.99 ANHEDONIA 11/12/2009 300.00 anxiety 11/12/2009 780.99 ANHEDONIA 11/12/2009 300.00 anxiety 11/12/2009 780.99 ANHEDONIA 11/12/2009 300.00 anxiety 11/12/2009 780.99 ANHEDONIA 11/12/2009 300.00 anxiety 11/12/2009 780.99 ANHEDONIA 11/12/2009 300.00 anxiety 11/12/2009 780.99 ANHEDONIA 11/12/2009 KATERINE LOPEZ APRN 300.00 anxiety 11/12/2009 KATERINE LOPEZ APRN 780.99 ANHEDONIA 11/12/2009 [facility] [place] 300.00 anxiety 11/12/2009 [facility] [place] 780.99 ANHEDONIA 11/12/2009 [facility] [place] 300.00 anxiety 11/12/2009 [facility] [place] 780.99 ANHEDONIA 11/12/2009 [facility] [place] R 300.00 anxiety 11/12/2009 [facility] [place] 780.99 ANHEDONIA 11/12/2009 [facility] [place] 300.00 anxiety 11/12/2009 [facility] [place] 780.99 ANHEDONIA 11/12/2009 [facility] [place] 300.00 anxiety 11/12/2009 [facility] [place] 780.99 ANHEDONIA 11/12/2009 [employer] A 300.00 anxiety 11/12/2009 [place] A 780.99 ANHEDONIA 11/12/2009 [facility] [place] R 300.00 anxiety 11/12/2009 [facility] [place] R 780.99 ANHEDONIA 11/12/2009 KATERINE LOPEZ APRN 300.00 anxiety 11/12/2009 KATERINE LOPEZ APRN 780.99 ANHEDONIA 11/12/2009 [facility], [place] R 300.00 anxiety 11/12/2009 [facility], [place] R 780.99 ANHEDONIA 11/12/2009 [facility], [place] R 300.00 anxiety 11/12/2009 [facility], [place] R 780.99 ANHEDONIA 11/12/2009 [facility], [place] R 300.00 anxiety 11/12/2009 [facility] [place] R 780.99 ANHEDONIA 11/12/2009 KATERINE LOPEZ APRN 300.00 anxiety 11/12/2009 KATERINE LOPEZ APRN 780.99 ANHEDONIA 11/12/2009 KATERINE LOPEZ APRN 300.00 anxiety 11/12/2009 KATERINE LOPEZ APRN 780.99 ANHEDONIA 11/12/2009 KATERINE LOPEZ APRN 300.00 anxiety 11/12/2009 KATERINE LOPEZ APRN 780.99 ANHEDONIA 11/12/2009 [facility] [place] 300.00 anxiety 11/12/2009 [facility] [place] 780.99 ANHEDONIA 11/12/2009 [employer] A 300.00 anxiety 11/12/2009 [place] A 780.99 ANHEDONIA 11/12/2009 [facility], [place] R 300.00 anxiety 11/12/2009 [facility], [place] R 780.99 ANHEDONIA 11/12/2009 [facility], [place] R 300.00 anxiety 11/12/2009 [facility], [place] R 780.99 ANHEDONIA 11/12/2009 [facility], [place] R 300.00 anxiety 11/12/2009 [facility], [place] R 780.99 ANHEDONIA 11/12/2009 [facility], [place] R 300.00 anxiety 11/12/2009 [facility], [place] R 780.99 ANHEDONIA 11/12/2009 [employer] A 300.00 anxiety 11/12/2009 [place] A 780.99 ANHEDONIA 11/12/2009 [employer], YUSRA L 300.00 anxiety 11/12/2009 [employer], YUSRA L 780.99 ANHEDONIA 11/12/2009 [employer], YUSRA L 300.00 anxiety 11/12/2009 [employer], YUSRA L 780.99 ANHEDONIA 11/12/2009 [employer], YUSRA L 300.00 anxiety 11/12/2009 [employer], YUSRA L 780.99 ANHEDONIA 11/12/2009 [employer], YUSRA L 300.00 anxiety 11/12/2009 [employer], YUSRA L 780.99 ANHEDONIA 11/12/2009 [facility] [place] 300.00 anxiety 11/12/2009 [facility] [place] 780.99 ANHEDONIA 11/12/2009 [facility] [place] 300.00 anxiety 11/12/2009 [facility] [place] 780.99 ANHEDONIA 05/04/2010 V58.69 taking high- risk medication 05/04/2010 V58.69 taking high- risk medication 05/04/2010 V58.69 taking high- risk medication 05/04/2010 V58.69 taking high- risk medication 05/04/2010 V58.69 taking high- risk medication 05/04/2010 V58.69 taking high- risk medication 05/04/2010 V58.69 taking high- risk medication 05/04/2010 V58.69 taking high- risk medication 05/04/2010 V58.69 taking high- risk medication 05/04/2010 V58.69 taking high- risk medication 05/04/2010 KATERINE LOPEZ APRN V58.69 taking high-risk medication 05/04/2010 [facility] [place] V58.69 taking high-risk medication 05/04/2010 [facility] [place] V58.69 taking high-risk medication 05/04/2010 [facility] [place] V58.69 taking high-risk medication 05/04/2010 [facility] [place] V58.69 taking high-risk medication 05/04/2010 [facility] [place] V58.69 taking high-risk medication 05/04/2010 [employer] A V58.69 taking high-risk medication 05/04/2010 [facility] [place] V58.69 taking high-risk medication 05/04/2010 GART[facility] KATERINE WIL[place] D V58.69 taking high-risk medication 05/04/2010 [facility] [place] V58.69 taking high-risk medication 05/04/2010 [facility] [place] V58.69 taking high-risk medication 05/04/2010 [facility] [place] V58.69 taking high-risk medication 05/04/2010 [employer] [employer]CH[employer]INE Aiken D V58.69 taking high-risk medication 05/04/2010 [facility] KATERINE WILSON D V58.69 taking high-risk medication 05/04/2010 [employer]CH[employer]INE Aiken D V58.69 taking high-risk medication 05/04/2010 [facility] [place] V58.69 taking high-risk medication 05/04/2010 [employer] A V58.69 taking high-risk medication 05/04/2010 [facility] [place] V58.69 taking high-risk medication 05/04/2010 [facility] [place] V58.69 taking high-risk medication 05/04/2010 [facility] [place] V58.69 taking high-risk medication 05/04/2010 [facility] [place] V58.69 taking high-risk medication 05/04/2010 [employer], [place] A V58.69 taking high-risk medication 05/04/2010 [employer] [employer], YUSRA L V58.69 taking high-risk medication 05/04/2010 [facility] [employer], YUSRA L V58.69 taking high-risk medication 05/04/2010 [facility] [employer], YUSRA L V58.69 taking high-risk medication 05/04/2010 [employer] [employer], YUSRA L V58.69 taking high-risk medication 05/04/2010 [facility], [place] R V58.69 taking high-risk medication 05/04/2010 [facility] [place] R V58.69 taking high-risk medication 06/04/2010 599.0 Urinary Tract Infection 06/04/2010 616.10 Vaginitis And Vulvovaginitis Unspecified 06/04/2010 V65.45 Std Counseling 06/04/2010 V74.5 Std Screen 06/04/2010 599.0 Urinary Tract Infection 06/04/2010 616.10 Vaginitis And Vulvovaginitis Unspecified 06/04/2010 V65.45 Std Counseling 06/04/2010 V74.5 Std Screen 06/04/2010 599.0 Urinary Tract Infection 06/04/2010 616.10 Vaginitis And Vulvovaginitis Unspecified 06/04/2010 V65.45 Std Counseling 06/04/2010 V74.5 Std Screen 06/04/2010 599.0 Urinary Tract Infection 06/04/2010 616.10 Vaginitis And Vulvovaginitis Unspecified 06/04/2010 V65.45 Std Counseling 06/04/2010 V74.5 Std Screen 06/04/2010 599.0 Urinary Tract Infection 06/04/2010 616.10 Vaginitis And Vulvovaginitis Unspecified 06/04/2010 V65.45 Std Counseling 06/04/2010 V74.5 Std Screen 06/04/2010 599.0 Urinary Tract Infection 06/04/2010 616.10 Vaginitis And Vulvovaginitis Unspecified 06/04/2010 V65.45 Std Counseling 06/04/2010 V74.5 Std Screen 06/04/2010 599.0 Urinary Tract Infection 06/04/2010 616.10 Vaginitis And Vulvovaginitis Unspecified 06/04/2010 V65.45 Std Counseling 06/04/2010 V74.5 Std Screen 06/04/2010 599.0 Urinary Tract Infection 06/04/2010 616.10 Vaginitis And Vulvovaginitis Unspecified 06/04/2010 V65.45 Std Counseling 06/04/2010 V74.5 Std Screen 06/04/2010 599.0 Urinary Tract Infection 06/04/2010 616.10 Vaginitis And Vulvovaginitis Unspecified 06/04/2010 V65.45 Std Counseling 06/04/2010 V74.5 Std Screen 06/04/2010 599.0 Urinary Tract Infection 06/04/2010 616.10 Vaginitis And Vulvovaginitis Unspecified 06/04/2010 V65.45 Std Counseling 06/04/2010 V74.5 Std Screen 06/04/2010 KATERINE LOPEZ APRN 599.0 Urinary Tract Infection 06/04/2010 KATERINE LOPEZ APRN 616.10 Vaginitis And Vulvovaginitis Unspecified 06/04/2010 KATERINE LOPEZ APRN V65.45 Std Counseling 06/04/2010 KATERINE LOPEZ APRN V74.5 Std Screen 06/04/2010 [facility], [place] R 599.0 Urinary Tract Infection 06/04/2010 [facility], [place] R 616.10 Vaginitis And Vulvovaginitis Unspecified 06/04/2010 [facility], [place] R V65.45 Std Counseling 06/04/2010 [facility], MATTHIEU R V74.5 Std Screen 06/04/2010 [facility], MATTHIEU R 599.0 Urinary Tract Infection 06/04/2010 [facility], MATTHIEU R 616.10 Vaginitis And Vulvovaginitis Unspecified 06/04/2010 [facility], MATTHIEU R V65.45 Std Counseling 06/04/2010 [facility], MATTHIEU R V74.5 Std Screen 06/04/2010 [facility], MATTHIEU R 599.0 Urinary Tract Infection 06/04/2010 [facility], MATTHIEU R 616.10 Vaginitis And Vulvovaginitis Unspecified 06/04/2010 [facility], MATTHIEU R V65.45 Std Counseling 06/04/2010 [facility]SC[facility], MATTHIEU R V74.5 Std Screen 06/04/2010 [facility], MATTHIEU R 599.0 Urinary Tract Infection 06/04/2010 [facility], MATTHIEU R 616.10 Vaginitis And Vulvovaginitis Unspecified 06/04/2010 [facility], MATTHIEU R V65.45 Std Counseling 06/04/2010 [facility], MATTHIEU R V74.5 Std Screen 06/04/2010 [facility], MATTHIEU R 599.0 Urinary Tract Infection 06/04/2010 [facility], MATTHIEU R 616.10 Vaginitis And Vulvovaginitis Unspecified 06/04/2010 [facility], MATTHIEU R V65.45 Std Counseling 06/04/2010 [facility], MATTHIEU R V74.5 Std Screen 06/04/2010 ROSALVA VALDIVIA APRNIDI A 599.0 Urinary Tract Infection 06/04/2010 [place], [place] A 616.10 Vaginitis And Vulvovaginitis Unspecified 06/04/2010 [place] A V65.45 Std Counseling 06/04/2010 [place] A V74.5 Std Screen 06/04/2010 [facility], MATTHIEU R 599.0 Urinary Tract Infection 06/04/2010 [facility], MATTHIEU R 616.10 Vaginitis And Vulvovaginitis Unspecified 06/04/2010 [facility], MATTHIEU R V65.45 Std Counseling 06/04/2010 [facility], MATTHIEU R V74.5 Std Screen 06/04/2010 KATERINE LOPEZ APRN 599.0 Urinary Tract Infection 06/04/2010 KATERINE LOPEZ APRN 616.10 Vaginitis And Vulvovaginitis Unspecified 06/04/2010 KATERINE LOPEZ APRN V65.45 Std Counseling 06/04/2010 KATERINE LOPEZ APRN V74.5 Std Screen 06/04/2010 [facility], MATTHIEU R 599.0 Urinary Tract Infection 06/04/2010 [facility], MATTHIEU R 616.10 Vaginitis And Vulvovaginitis Unspecified 06/04/2010 [facility], MATTHIEU R V65.45 Std Counseling 06/04/2010 [facility], MATTHIEU R V74.5 Std Screen 06/04/2010 [facility], MATTHIEU R 599.0 Urinary Tract Infection 06/04/2010 [facility], MATTHIEU R 616.10 Vaginitis And Vulvovaginitis Unspecified 06/04/2010 [facility], MATTHIEU R V65.45 Std Counseling 06/04/2010 [facility] LSC[facility], MATTHIEU R V74.5 Std Screen 06/04/2010 [facility], MATTHIEU R 599.0 Urinary Tract Infection 06/04/2010 [facility], MATTHIEU R 616.10 Vaginitis And Vulvovaginitis Unspecified 06/04/2010 [facility], [place] R V65.45 Std Counseling 06/04/2010 [facility], [place] R V74.5 Std Screen 06/04/2010 KATERINE LOPEZ APRN 599.0 Urinary Tract Infection 06/04/2010 KATERINE LOPEZ APRN 616.10 Vaginitis And Vulvovaginitis Unspecified 06/04/2010 KATERINE LOPEZ APRN V65.45 Std Counseling 06/04/2010 KATERINE LOPEZ APRN V74.5 Std Screen 06/04/2010 KATERINE LOPEZ APRN 599.0 Urinary Tract Infection 06/04/2010 KATERINE LOPEZ APRN D 616.10 Vaginitis And Vulvovaginitis Unspecified 06/04/2010 KATERINE LOPEZ APRN V65.45 Std Counseling 06/04/2010 KATERINE LOPEZ APRN V74.5 Std Screen 06/04/2010 KATERINE LOPEZ APRN 599.0 Urinary Tract Infection 06/04/2010 KATERINE LOPEZ APRN 616.10 Vaginitis And Vulvovaginitis Unspecified 06/04/2010 KATERINE LOPEZ APRN D V65.45 Std Counseling 06/04/2010 KATERINE LOPEZ APRN D V74.5 Std Screen 06/04/2010 [facility], [place] R 599.0 Urinary Tract Infection 06/04/2010 [facility], [place] R 616.10 Vaginitis And Vulvovaginitis Unspecified 06/04/2010 [facility], [place] R V65.45 Std Counseling 06/04/2010 [facility], [place] R V74.5 Std Screen 06/04/2010 [place] VAL[place] APRN A 599.0 Urinary Tract Infection 06/04/2010 [place] VAL[place] APRN A 616.10 Vaginitis And Vulvovaginitis Unspecified 06/04/2010 [place] VAL[place] APRN A V65.45 Std Counseling 06/04/2010 [employer] A V74.5 Std Screen 06/04/2010 [facility] LSC[facility], MATTHIEU R 599.0 Urinary Tract Infection 06/04/2010 [facility], MATTHIEU R 616.10 Vaginitis And Vulvovaginitis Unspecified 06/04/2010 [facility]SC[facility], MATTHIEU R V65.45 Std Counseling 06/04/2010 [facility], MATTHIEU R V74.5 Std Screen 06/04/2010 [facility], MATTHIEU R 599.0 Urinary Tract Infection 06/04/2010 [facility], MATTHIEU R 616.10 Vaginitis And Vulvovaginitis Unspecified 06/04/2010 [facility]SC[facility], MATTHIEU R V65.45 Std Counseling 06/04/2010 [facility]SC[facility], MATTHIEU R V74.5 Std Screen 06/04/2010 [facility], MATTHIEU R 599.0 Urinary Tract Infection 06/04/2010 [facility], MATTHIEU R 616.10 Vaginitis And Vulvovaginitis Unspecified 06/04/2010 [facility]SC[facility], MATTHIEU R V65.45 Std Counseling 06/04/2010 [facility], MATTHIEU R V74.5 Std Screen 06/04/2010 [facility], MATTHIEU R 599.0 Urinary Tract Infection 06/04/2010 [facility], MATTHIEU R 616.10 Vaginitis And Vulvovaginitis Unspecified 06/04/2010 [facility], MATTHIEU R V65.45 Std Counseling 06/04/2010 [facility] V74.5 Std Screen 06/04/2010 [place] A 599.0 Urinary Tract Infection 06/04/2010 [employer] A 616.10 Vaginitis And Vulvovaginitis Unspecified 06/04/2010 [employer] A V65.45 Std Counseling 06/04/2010 SK[facility] [place], [place] A V74.5 Std Screen 06/04/2010 [employer], YUSRA L 599.0 Urinary Tract Infection 06/04/2010 [employer], YUSRA L 616.10 Vaginitis And Vulvovaginitis Unspecified 06/04/2010 [employer], YUSRA L V65.45 Std Counseling 06/04/2010 [employer], YUSRA L V74.5 Std Screen 06/04/2010 [employer], YUSRA L 599.0 Urinary Tract Infection 06/04/2010 [employer], YUSRA L 616.10 Vaginitis And Vulvovaginitis Unspecified 06/04/2010 [employer], YUSRA L V65.45 Std Counseling 06/04/2010 [employer], YUSRA L V74.5 Std Screen 06/04/2010 [employer], YUSRA L 599.0 Urinary Tract Infection 06/04/2010 [employer], YUSRA L 616.10 Vaginitis And Vulvovaginitis Unspecified 06/04/2010 [employer], YUSRA L V65.45 Std Counseling 06/04/2010 [employer], YUSRA L V74.5 Std Screen 06/04/2010 [employer], YUSRA L 599.0 Urinary Tract Infection 06/04/2010 [employer], YUSRA L 616.10 Vaginitis And Vulvovaginitis Unspecified 06/04/2010 [employer], YUSRA L V65.45 Std Counseling 06/04/2010 [employer], YUSRA L V74.5 Std Screen 06/04/2010 [facility], [place] R 599.0 Urinary Tract Infection 06/04/2010 [facility], [place] R 616.10 Vaginitis And Vulvovaginitis Unspecified 06/04/2010 [facility], [place] R V65.45 Std Counseling 06/04/2010 [facility], [place] R V74.5 Std Screen 06/04/2010 [facility], [place] R 599.0 Urinary Tract Infection 06/04/2010 [facility], [place] R 616.10 Vaginitis And Vulvovaginitis Unspecified 06/04/2010 [facility], [place] R V65.45 Std Counseling 06/04/2010 [facility], [place] R V74.5 Std Screen 09/08/2010 V16.3 FAMILY HISTORY OF MALIGNANT NEOPLASM OF BREAST 09/08/2010 V16.3 FAMILY HISTORY OF MALIGNANT NEOPLASM OF BREAST 09/08/2010 V16.3 FAMILY HISTORY OF MALIGNANT NEOPLASM OF BREAST 09/08/2010 V16.3 FAMILY HISTORY OF MALIGNANT NEOPLASM OF BREAST 09/08/2010 V16.3 FAMILY HISTORY OF MALIGNANT NEOPLASM OF BREAST 09/08/2010 V16.3 FAMILY HISTORY OF MALIGNANT NEOPLASM OF BREAST 09/08/2010 V16.3 FAMILY HISTORY OF MALIGNANT NEOPLASM OF BREAST 09/08/2010 V16.3 FAMILY HISTORY OF MALIGNANT NEOPLASM OF BREAST 09/08/2010 V16.3 FAMILY HISTORY OF MALIGNANT NEOPLASM OF BREAST 09/08/2010 V16.3 FAMILY HISTORY OF MALIGNANT NEOPLASM OF BREAST 09/08/2010 KATERINE LOPEZ APRN V16.3 FAMILY HISTORY OF MALIGNANT NEOPLASM OF BREAST 09/08/2010 [facility], [place] R V16.3 FAMILY HISTORY OF MALIGNANT NEOPLASM OF BREAST 09/08/2010 [facility], [place] R V16.3 FAMILY HISTORY OF MALIGNANT NEOPLASM OF BREAST 09/08/2010 [facility], [place] R V16.3 FAMILY HISTORY OF MALIGNANT NEOPLASM OF BREAST 09/08/2010 [facility], [place] R V16.3 FAMILY HISTORY OF MALIGNANT NEOPLASM OF BREAST 09/08/2010 [facility], [place] R V16.3 FAMILY HISTORY OF MALIGNANT NEOPLASM OF BREAST 09/08/2010 [place] VAL[place] APRN V16.3 FAMILY HISTORY OF MALIGNANT NEOPLASM OF BREAST 09/08/2010 [facility], [place] R V16.3 FAMILY HISTORY OF MALIGNANT NEOPLASM OF BREAST 09/08/2010 KATERINE LOPEZ APRN V16.3 FAMILY HISTORY OF MALIGNANT NEOPLASM OF BREAST 09/08/2010 [facility], [place] R V16.3 FAMILY HISTORY OF MALIGNANT NEOPLASM OF BREAST 09/08/2010 [facility], [place] R V16.3 FAMILY HISTORY OF MALIGNANT NEOPLASM OF BREAST 09/08/2010 [facility], [place] R V16.3 FAMILY HISTORY OF MALIGNANT NEOPLASM OF BREAST 09/08/2010 KATERINE LOPEZ APRN V16.3 FAMILY HISTORY OF MALIGNANT NEOPLASM OF BREAST 09/08/2010 KATERINE LOPEZ APRN V16.3 FAMILY HISTORY OF MALIGNANT NEOPLASM OF BREAST 09/08/2010 KATERINE LOPEZ APRN V16.3 FAMILY HISTORY OF MALIGNANT NEOPLASM OF BREAST 09/08/2010 [facility], [place] R V16.3 FAMILY HISTORY OF MALIGNANT NEOPLASM OF BREAST 09/08/2010 [employer] A V16.3 FAMILY HISTORY OF MALIGNANT NEOPLASM OF BREAST 09/08/2010 [facility], [place] R V16.3 FAMILY HISTORY OF MALIGNANT NEOPLASM OF BREAST 09/08/2010 [facility], [place] R V16.3 FAMILY HISTORY OF MALIGNANT NEOPLASM OF BREAST 09/08/2010 [facility], [place] R V16.3 FAMILY HISTORY OF MALIGNANT NEOPLASM OF BREAST 09/08/2010 [facility], [place] R V16.3 FAMILY HISTORY OF MALIGNANT NEOPLASM OF BREAST 09/08/2010 [employer] A V16.3 FAMILY HISTORY OF MALIGNANT NEOPLASM OF BREAST 09/08/2010 [employer], YUSRA L V16.3 FAMILY HISTORY OF MALIGNANT NEOPLASM OF BREAST 09/08/2010 [employer], YUSRA L V16.3 FAMILY HISTORY OF MALIGNANT NEOPLASM OF BREAST 09/08/2010 [employer], YUSRA L V16.3 FAMILY HISTORY OF MALIGNANT NEOPLASM OF BREAST 09/08/2010 [employer], YUSRA L V16.3 FAMILY HISTORY OF MALIGNANT NEOPLASM OF BREAST 09/08/2010 [facility], [place] R V16.3 FAMILY HISTORY OF MALIGNANT NEOPLASM OF BREAST 09/08/2010 [facility], [place] R V16.3 FAMILY HISTORY OF MALIGNANT NEOPLASM OF BREAST 10/24/2010 Ot 847.0 10/24/2010 Ot 920 10/24/2010 Ot 922.1 10/24/2010 Ot 922.2 10/24/2010 Ot 959.09 10/24/2010 Ot E000.8 10/24/2010 Ot E812.0 11/11/2010 Ot 959.11 OTH INJURY OF CHEST WALL 11/11/2010 Ot E000.8 OTHER EXTERNAL CAUSE STATUS 11/11/2010 Ot 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/23/2010 786.52 ANTERIOR WALL CHEST PAIN WITH RESPIRATION 11/23/2010 786.52 ANTERIOR WALL CHEST PAIN WITH RESPIRATION 11/23/2010 786.52 ANTERIOR WALL CHEST PAIN WITH RESPIRATION 11/23/2010 786.52 ANTERIOR WALL CHEST PAIN WITH RESPIRATION 11/23/2010 786.52 ANTERIOR WALL CHEST PAIN WITH RESPIRATION 11/23/2010 786.52 ANTERIOR WALL CHEST PAIN WITH RESPIRATION 11/23/2010 786.52 ANTERIOR WALL CHEST PAIN WITH RESPIRATION 11/23/2010 786.52 ANTERIOR WALL CHEST PAIN WITH RESPIRATION 11/23/2010 786.52 ANTERIOR WALL CHEST PAIN WITH RESPIRATION 11/23/2010 786.52 ANTERIOR WALL CHEST PAIN WITH RESPIRATION 11/23/2010 KATERNIE LOPEZ APRN D 786.52 ANTERIOR WALL CHEST PAIN WITH RESPIRATION 11/23/2010 [facility], [place]THIEU R 786.52 ANTERIOR WALL CHEST PAIN WITH RESPIRATION 11/23/2010 [facility] LSC[facility], MATTHIEU R 786.52 ANTERIOR WALL CHEST PAIN WITH RESPIRATION 11/23/2010 [facility] LSCS, MATTHIEU R 786.52 ANTERIOR WALL CHEST PAIN WITH RESPIRATION 11/23/2010 [facility] LSCS, MATTHIEU R 786.52 ANTERIOR WALL CHEST PAIN WITH RESPIRATION 11/23/2010 [facility], MATTHIEU R 786.52 ANTERIOR WALL CHEST PAIN WITH RESPIRATION 11/23/2010 [place] A 786.52 ANTERIOR WALL CHEST PAIN WITH RESPIRATION 11/23/2010 [facility] LSC[facility], MATTHIEU R 786.52 ANTERIOR WALL CHEST PAIN WITH RESPIRATION 11/23/2010 KATERINE LOPEZ APRN D 786.52 ANTERIOR WALL CHEST PAIN WITH RESPIRATION 11/23/2010 [facility] LSC[facility], MATTHIEU R 786.52 ANTERIOR WALL CHEST PAIN WITH RESPIRATION 11/23/2010 [facility] LSC[facility], MATTHIEU R 786.52 ANTERIOR WALL CHEST PAIN WITH RESPIRATION 11/23/2010 [facility] LSC[facility], MATTHIEU R 786.52 ANTERIOR WALL CHEST PAIN WITH RESPIRATION 11/23/2010 KATERINE LOPEZ APRN D 786.52 ANTERIOR WALL CHEST PAIN WITH RESPIRATION 11/23/2010 KATERINE LOPEZ APRN D 786.52 ANTERIOR WALL CHEST PAIN WITH RESPIRATION 11/23/2010 KATERINE LOPEZ APRN D 786.52 ANTERIOR WALL CHEST PAIN WITH RESPIRATION 11/23/2010 [facility], MAT[place]IEU R 786.52 ANTERIOR WALL CHEST PAIN WITH RESPIRATION 11/23/2010 [employer] [place] A 786.52 ANTERIOR WALL CHEST PAIN WITH RESPIRATION 11/23/2010 [facility], MATTHIEU R 786.52 ANTERIOR WALL CHEST PAIN WITH RESPIRATION 11/23/2010 [facility] LSC[facility], MATTHIEU R 786.52 ANTERIOR WALL CHEST PAIN WITH RESPIRATION 11/23/2010 [facility], MATTHIEU R 786.52 ANTERIOR WALL CHEST PAIN WITH RESPIRATION 11/23/2010 [facility], [place] R 786.52 ANTERIOR WALL CHEST PAIN WITH RESPIRATION 11/23/2010 [employer] A 786.52 ANTERIOR WALL CHEST PAIN WITH RESPIRATION 11/23/2010 [employer], YUSRA L 786.52 ANTERIOR WALL CHEST PAIN WITH RESPIRATION 11/23/2010 [employer], YUSRA L 786.52 ANTERIOR WALL CHEST PAIN WITH RESPIRATION 11/23/2010 [employer], YUSRA L 786.52 ANTERIOR WALL CHEST PAIN WITH RESPIRATION 11/23/2010 [employer], YUSRA L 786.52 ANTERIOR WALL CHEST PAIN WITH RESPIRATION 11/23/2010 [facility], [place] R 786.52 ANTERIOR WALL CHEST PAIN WITH RESPIRATION 11/23/2010 [facility], [place] R 786.52 ANTERIOR WALL CHEST PAIN WITH RESPIRATION 12/15/2010 780.52 INSOMNIA UNSPECIFIED 12/15/2010 780.52 INSOMNIA UNSPECIFIED 12/15/2010 780.52 INSOMNIA UNSPECIFIED 12/15/2010 780.52 INSOMNIA UNSPECIFIED 12/15/2010 780.52 INSOMNIA UNSPECIFIED 12/15/2010 780.52 INSOMNIA UNSPECIFIED 12/15/2010 780.52 INSOMNIA UNSPECIFIED 12/15/2010 780.52 INSOMNIA UNSPECIFIED 12/15/2010 780.52 INSOMNIA UNSPECIFIED 12/15/2010 780.52 INSOMNIA UNSPECIFIED 12/15/2010 KATERINE LOPEZ APRN 780.52 INSOMNIA UNSPECIFIED 12/15/2010 [facility], [place] R 780.52 INSOMNIA UNSPECIFIED 12/15/2010 [facility], [place] R 780.52 INSOMNIA UNSPECIFIED 12/15/2010 [facility], [place] R 780.52 INSOMNIA UNSPECIFIED 12/15/2010 [facility], [place] R 780.52 INSOMNIA UNSPECIFIED 12/15/2010 [facility], [place] R 780.52 INSOMNIA UNSPECIFIED 12/15/2010 [employer] A 780.52 INSOMNIA UNSPECIFIED 12/15/2010 [facility], [place] R 780.52 INSOMNIA UNSPECIFIED 12/15/2010 KATERINE LOPEZ APRN 780.52 INSOMNIA UNSPECIFIED 12/15/2010 [facility], [place] R 780.52 INSOMNIA UNSPECIFIED 12/15/2010 [facility], [place] R 780.52 INSOMNIA UNSPECIFIED 12/15/2010 [facility], [place] R 780.52 INSOMNIA UNSPECIFIED 12/15/2010 KATERINE LOPEZ APRN 780.52 INSOMNIA UNSPECIFIED 12/15/2010 KATERINE LOPEZ APRN 780.52 INSOMNIA UNSPECIFIED 12/15/2010 KATERINE LOPEZ APRN 780.52 INSOMNIA UNSPECIFIED 12/15/2010 [facility], [place] R 780.52 INSOMNIA UNSPECIFIED 12/15/2010 [employer] A 780.52 INSOMNIA UNSPECIFIED 12/15/2010 [facility], [place] R 780.52 INSOMNIA UNSPECIFIED 12/15/2010 [facility], [place] R 780.52 INSOMNIA UNSPECIFIED 12/15/2010 [facility], [place] R 780.52 INSOMNIA UNSPECIFIED 12/15/2010 [facility], [place] R 780.52 INSOMNIA UNSPECIFIED 12/15/2010 [employer] A 780.52 INSOMNIA UNSPECIFIED 12/15/2010 [employer], YUSRA L 780.52 INSOMNIA UNSPECIFIED 12/15/2010 [employer], YUSRA L 780.52 INSOMNIA UNSPECIFIED 12/15/2010 [employer], YUSRA L 780.52 INSOMNIA UNSPECIFIED 12/15/2010 [employer], YUSRA L 780.52 INSOMNIA UNSPECIFIED 12/15/2010 [facility], [place] R 780.52 INSOMNIA UNSPECIFIED 12/15/2010 [facility], [place] R 780.52 INSOMNIA UNSPECIFIED 05/10/2011 V22.2 INCIDENTAL 05/10/2011 V22.2 INCIDENTAL 05/10/2011 V22.2 INCIDENTAL 05/10/2011 V22.2 INCIDENTAL 05/10/2011 V22.2 INCIDENTAL 05/10/2011 V22.2 INCIDENTAL 05/10/2011 V22.2 INCIDENTAL 05/10/2011 V22.2 INCIDENTAL 05/10/2011 V22.2 INCIDENTAL 05/10/2011 V22.2 INCIDENTAL 05/10/2011 KATERINE LOPEZ APRN V22.2 INCIDENTAL 05/10/2011 [facility], [place] R V22.2 INCIDENTAL 05/10/2011 [facility], [place] R V22.2 INCIDENTAL 05/10/2011 [facility], [place] R V22.2 INCIDENTAL 05/10/2011 [facility], [place] R V22.2 INCIDENTAL 05/10/2011 [facility] [place] [facility] V22.2 INCIDENTAL 05/10/2011 [employer] V22.2 INCIDENTAL 05/10/2011 [facility], [place] R V22.2 INCIDENTAL 05/10/2011 KATERINE LOPEZ APRN D V22.2 INCIDENTAL 05/10/2011 [facility], [place] R V22.2 INCIDENTAL 05/10/2011 [facility], [place] R V22.2 INCIDENTAL 05/10/2011 [facility], [place] R V22.2 INCIDENTAL 05/10/2011 KATERINE LOPEZ APRN V22.2 INCIDENTAL 05/10/2011 KATERINE LOPEZ APRN V22.2 INCIDENTAL 05/10/2011 KATERINE LOPEZ APRN V22.2 INCIDENTAL 05/10/2011 [facility], [place] R V22.2 INCIDENTAL 05/10/2011 [employer] A V22.2 INCIDENTAL 05/10/2011 [facility], [place] R V22.2 INCIDENTAL 05/10/2011 [facility], [place] R V22.2 INCIDENTAL 05/10/2011 [facility], [place] R V22.2 INCIDENTAL 05/10/2011 [facility], [place] R V22.2 INCIDENTAL 05/10/2011 [employer] A V22.2 INCIDENTAL 05/10/2011 [employer], YUSRA L V22.2 INCIDENTAL 05/10/2011 [employer], YUSRA L V22.2 INCIDENTAL 05/10/2011 [employer], YUSRA L V22.2 INCIDENTAL 05/10/2011 [employer], YUSRA L V22.2 INCIDENTAL 05/10/2011 [facility], [place] R V22.2 INCIDENTAL 05/10/2011 [facility], [place] R V22.2 INCIDENTAL 06/08/2011 296.32 MO DEPRESSIVE RECURRENT MODERATE 06/08/2011 296.32 MO DEPRESSIVE RECURRENT MODERATE 06/08/2011 296.32 MO DEPRESSIVE RECURRENT MODERATE 06/08/2011 296.32 MO DEPRESSIVE RECURRENT MODERATE 06/08/2011 296.32 MO DEPRESSIVE RECURRENT MODERATE 06/08/2011 296.32 MO DEPRESSIVE RECURRENT MODERATE 06/08/2011 296.32 MO DEPRESSIVE RECURRENT MODERATE 06/08/2011 296.32 MO DEPRESSIVE RECURRENT MODERATE 06/08/2011 296.32 MO DEPRESSIVE RECURRENT MODERATE 06/08/2011 296.32 MO DEPRESSIVE RECURRENT MODERATE 06/08/2011 KATERINE LOPEZ APRN D 296.32 MO DEPRESSIVE RECURRENT MODERATE 06/08/2011 [facility], [place] R 296.32 MO DEPRESSIVE RECURRENT MODERATE 06/08/2011 [facility], [place] R 296.32 MO DEPRESSIVE RECURRENT MODERATE 06/08/2011 [facility], [place] R 296.32 MO DEPRESSIVE RECURRENT MODERATE 06/08/2011 [facility], [place] R 296.32 MO DEPRESSIVE RECURRENT MODERATE 06/08/2011 [facility], [place] R 296.32 MO DEPRESSIVE RECURRENT MODERATE 06/08/2011 ROSALVA VALDIVIA APRNIDI A 296.32 MO DEPRESSIVE RECURRENT MODERATE 06/08/2011 [facility], [place] R 296.32 MO DEPRESSIVE RECURRENT MODERATE 06/08/2011 KATERINE LOPEZ APRN 296.32 MO DEPRESSIVE RECURRENT MODERATE 06/08/2011 [facility], [place] R 296.32 MO DEPRESSIVE RECURRENT MODERATE 06/08/2011 [facility], [place] R 296.32 MO DEPRESSIVE RECURRENT MODERATE 06/08/2011 [facility], [place] R 296.32 MO DEPRESSIVE RECURRENT MODERATE 06/08/2011 KATERINE LOPEZ APRN 296.32 MO DEPRESSIVE RECURRENT MODERATE 06/08/2011 KATERINE LOPEZ APRN 296.32 MO DEPRESSIVE RECURRENT MODERATE 06/08/2011 KATERINE LOPEZ APRN 296.32 MO DEPRESSIVE RECURRENT MODERATE 06/08/2011 [facility] [place] [facility] 296.32 MO DEPRESSIVE RECURRENT MODERATE 06/08/2011 ROSALVA VALDIVIA APRNIDI A 296.32 MO DEPRESSIVE RECURRENT MODERATE 06/08/2011 [facility], [place] [facility] 296.32 MO DEPRESSIVE RECURRENT MODERATE 06/08/2011 [facility], [place] R 296.32 MO DEPRESSIVE RECURRENT MODERATE 06/08/2011 [facility], MATTHIEU R 296.32 MO DEPRESSIVE RECURRENT MODERATE 06/08/2011 [facility], MATTHIEU R 296.32 MO DEPRESSIVE RECURRENT MODERATE 06/08/2011 [employer], [place] A 296.32 MO DEPRESSIVE RECURRENT MODERATE 06/08/2011 [facility] [employer], YUSRA L 296.32 MO DEPRESSIVE RECURRENT MODERATE 06/08/2011 [facility] [employer], YUSRA L 296.32 MO DEPRESSIVE RECURRENT MODERATE 06/08/2011 [employer] [employer], YUSRA L 296.32 MO DEPRESSIVE RECURRENT MODERATE 06/08/2011 [employer] [employer], YUSRA L 296.32 MO DEPRESSIVE RECURRENT MODERATE 06/08/2011 [facility], MATTHIEU R 296.32 MO DEPRESSIVE RECURRENT MODERATE 06/08/2011 [facility], MATTHIEU R 296.32 MO DEPRESSIVE RECURRENT MODERATE 11/16/2011 307.81 HEADACHE, TENSION 11/16/2011 346.90 HEADACHE, MIGRAINE 11/16/2011 307.81 HEADACHE, TENSION 11/16/2011 346.90 HEADACHE, MIGRAINE 11/16/2011 307.81 HEADACHE, TENSION 11/16/2011 346.90 HEADACHE, MIGRAINE 11/16/2011 307.81 HEADACHE, TENSION 11/16/2011 346.90 HEADACHE, MIGRAINE 11/16/2011 307.81 HEADACHE, TENSION 11/16/2011 346.90 HEADACHE, MIGRAINE 11/16/2011 307.81 HEADACHE, TENSION 11/16/2011 346.90 HEADACHE, MIGRAINE 11/16/2011 307.81 HEADACHE, TENSION 11/16/2011 346.90 HEADACHE, MIGRAINE 11/16/2011 307.81 HEADACHE, TENSION 11/16/2011 346.90 HEADACHE, MIGRAINE 11/16/2011 307.81 HEADACHE, TENSION 11/16/2011 346.90 HEADACHE, MIGRAINE 11/16/2011 307.81 HEADACHE, TENSION 11/16/2011 346.90 HEADACHE, MIGRAINE 11/16/2011 KATERINE LOPEZ APRN 307.81 HEADACHE, TENSION 11/16/2011 KATERINE LOPEZ APRN 346.90 HEADACHE, MIGRAINE 11/16/2011 [facility], MATTHIEU R 307.81 HEADACHE, TENSION 11/16/2011 [facility], MATTHIEU R 346.90 HEADACHE, MIGRAINE 11/16/2011 [facility], MATTHIEU R 307.81 HEADACHE, TENSION 11/16/2011 [facility], MATTHIEU R 346.90 HEADACHE, MIGRAINE 11/16/2011 [facility], MATTHIEU R 307.81 HEADACHE, TENSION 11/16/2011 [facility], MATTHIEU R 346.90 HEADACHE, MIGRAINE 11/16/2011 [facility], MATTHIEU R 307.81 HEADACHE, TENSION 11/16/2011 [facility], MATTHIEU R 346.90 HEADACHE, MIGRAINE 11/16/2011 [facility], MATTHIEU R 307.81 HEADACHE, TENSION 11/16/2011 [facility], MATTHIEU R 346.90 HEADACHE, MIGRAINE 11/16/2011 [employer], [place] A 307.81 HEADACHE, TENSION 11/16/2011 [employer], [place] A 346.90 HEADACHE, MIGRAINE 11/16/2011 [facility], MATTHIEU R 307.81 HEADACHE, TENSION 11/16/2011 [facility], MATTHIEU R 346.90 HEADACHE, MIGRAINE 11/16/2011 AKTERINE LOPEZ APRN D 307.81 HEADACHE, TENSION 11/16/2011 KATERINE LOPEZ APRN D 346.90 HEADACHE, MIGRAINE 11/16/2011 [facility], MATTHIEU R 307.81 HEADACHE, TENSION 11/16/2011 [facility], MATTHIEU R 346.90 HEADACHE, MIGRAINE 11/16/2011 [facility], MATTHIEU R 307.81 HEADACHE, TENSION 11/16/2011 [facility], MATTHIEU R 346.90 HEADACHE, MIGRAINE 11/16/2011 [facility], MATTHIEU R 307.81 HEADACHE, TENSION 11/16/2011 [facility], MATTHIEU R 346.90 HEADACHE, MIGRAINE 11/16/2011 KATERINE LOPEZ APRN D 307.81 HEADACHE, TENSION 11/16/2011 KATERINE LOPEZ APRN D 346.90 HEADACHE, MIGRAINE 11/16/2011 KATERINE LOPEZ APRN D 307.81 HEADACHE, TENSION 11/16/2011 KATERINE LOPEZ APRN D 346.90 HEADACHE, MIGRAINE 11/16/2011 KATERINE LOPEZ APRN D 307.81 HEADACHE, TENSION 11/16/2011 MARIAM LOPEZ APRNBETH D 346.90 HEADACHE, MIGRAINE 11/16/2011 [facility], MATTHIEU R 307.81 HEADACHE, TENSION 11/16/2011 [facility], MATTHIEU R 346.90 HEADACHE, MIGRAINE 11/16/2011 [employer], [place] A 307.81 HEADACHE, TENSION 11/16/2011 [employer], [place] A 346.90 HEADACHE, MIGRAINE 11/16/2011 [facility], MATTHIEU R 307.81 HEADACHE, TENSION 11/16/2011 [facility], MATTHIEU R 346.90 HEADACHE, MIGRAINE 11/16/2011 [facility], MATTHIEU R 307.81 HEADACHE, TENSION 11/16/2011 [facility], MATTHIEU R 346.90 HEADACHE, MIGRAINE 11/16/2011 [facility], MATTHIEU R 307.81 HEADACHE, TENSION 11/16/2011 [facility], MATTHIEU R 346.90 HEADACHE, MIGRAINE 11/16/2011 [facility], [place] R 307.81 HEADACHE, TENSION 11/16/2011 [facility], [place] R 346.90 HEADACHE, MIGRAINE 11/16/2011 [employer], [place] A 307.81 HEADACHE, TENSION 11/16/2011 [employer], [place] A 346.90 HEADACHE, MIGRAINE 11/16/2011 [employer], YUSRA L 307.81 HEADACHE, TENSION 11/16/2011 [employer], YUSRA L 346.90 HEADACHE, MIGRAINE 11/16/2011 [employer], YUSRA L 307.81 HEADACHE, TENSION 11/16/2011 [employer], YUSRA L 346.90 HEADACHE, MIGRAINE 11/16/2011 [employer], YUSRA L 307.81 HEADACHE, TENSION 11/16/2011 [employer], YUSRA L 346.90 HEADACHE, MIGRAINE 11/16/2011 [employer], YUSRA L 307.81 HEADACHE, TENSION 11/16/2011 [employer], YUSRA L 346.90 HEADACHE, MIGRAINE 11/16/2011 [facility], [place] R 307.81 HEADACHE, TENSION 11/16/2011 [facility], [place] R 346.90 HEADACHE, MIGRAINE 11/16/2011 [facility], [place] R 307.81 HEADACHE, TENSION 11/16/2011 [facility], [place] R 346.90 HEADACHE, MIGRAINE 11/23/2011 296.33 MO DEPRESSIVE RECURRENT SEVERE W/O PSYCHOTIC BEHAVIOR 11/23/2011 296.33 MO DEPRESSIVE RECURRENT SEVERE W/O PSYCHOTIC BEHAVIOR 11/23/2011 296.33 MO DEPRESSIVE RECURRENT SEVERE W/O PSYCHOTIC BEHAVIOR 11/23/2011 296.33 MO DEPRESSIVE RECURRENT SEVERE W/O PSYCHOTIC BEHAVIOR 11/23/2011 296.33 MO DEPRESSIVE RECURRENT SEVERE W/O PSYCHOTIC BEHAVIOR 11/23/2011 296.33 MO DEPRESSIVE RECURRENT SEVERE W/O PSYCHOTIC BEHAVIOR 11/23/2011 296.33 MO DEPRESSIVE RECURRENT SEVERE W/O PSYCHOTIC BEHAVIOR 11/23/2011 296.33 MO DEPRESSIVE RECURRENT SEVERE W/O PSYCHOTIC BEHAVIOR 11/23/2011 296.33 MO DEPRESSIVE RECURRENT SEVERE W/O PSYCHOTIC BEHAVIOR 11/23/2011 296.33 MO DEPRESSIVE RECURRENT SEVERE W/O PSYCHOTIC BEHAVIOR 11/23/2011 KATERINE LOPEZ APRN 296.33 MO DEPRESSIVE RECURRENT SEVERE W/O PSYCHOTIC BEHAVIOR 11/23/2011 [facility], [place] 296.33 MO DEPRESSIVE RECURRENT SEVERE W/O PSYCHOTIC BEHAVIOR 11/23/2011 [facility], [place] R 296.33 MO DEPRESSIVE RECURRENT SEVERE W/O PSYCHOTIC BEHAVIOR 11/23/2011 [facility], [place] R 296.33 MO DEPRESSIVE RECURRENT SEVERE W/O PSYCHOTIC BEHAVIOR 11/23/2011 [facility], [place] R 296.33 MO DEPRESSIVE RECURRENT SEVERE W/O PSYCHOTIC BEHAVIOR 11/23/2011 [facility], [place] R 296.33 MO DEPRESSIVE RECURRENT SEVERE W/O PSYCHOTIC BEHAVIOR 11/23/2011 [place] APRN 296.33 MO DEPRESSIVE RECURRENT SEVERE W/O PSYCHOTIC BEHAVIOR 11/23/2011 [facility], [place] R 296.33 MO DEPRESSIVE RECURRENT SEVERE W/O PSYCHOTIC BEHAVIOR 11/23/2011 KATERINE LOPEZ APRN 296.33 MO DEPRESSIVE RECURRENT SEVERE W/O PSYCHOTIC BEHAVIOR 11/23/2011 [facility], [place] R 296.33 MO DEPRESSIVE RECURRENT SEVERE W/O PSYCHOTIC BEHAVIOR 11/23/2011 [facility], [place] R 296.33 MO DEPRESSIVE RECURRENT SEVERE W/O PSYCHOTIC BEHAVIOR 11/23/2011 [facility], [place] R 296.33 MO DEPRESSIVE RECURRENT SEVERE W/O PSYCHOTIC BEHAVIOR 11/23/2011 KATERINE LOPEZ APRN 296.33 MO DEPRESSIVE RECURRENT SEVERE W/O PSYCHOTIC BEHAVIOR 11/23/2011 KATREINE LOPEZ APRN 296.33 MO DEPRESSIVE RECURRENT SEVERE W/O PSYCHOTIC BEHAVIOR 11/23/2011 KATERINE LOPEZ APRN 296.33 MO DEPRESSIVE RECURRENT SEVERE W/O PSYCHOTIC BEHAVIOR 11/23/2011 [facility], [place] R 296.33 MO DEPRESSIVE RECURRENT SEVERE W/O PSYCHOTIC BEHAVIOR 11/23/2011 [employer], [place] A 296.33 MO DEPRESSIVE RECURRENT SEVERE W/O PSYCHOTIC BEHAVIOR 11/23/2011 [facility], [place] R 296.33 MO DEPRESSIVE RECURRENT SEVERE W/O PSYCHOTIC BEHAVIOR 11/23/2011 [facility], [place] R 296.33 MO DEPRESSIVE RECURRENT SEVERE W/O PSYCHOTIC BEHAVIOR 11/23/2011 [facility], [place] R 296.33 MO DEPRESSIVE RECURRENT SEVERE W/O PSYCHOTIC BEHAVIOR 11/23/2011 [facility], [place] R 296.33 MO DEPRESSIVE RECURRENT SEVERE W/O PSYCHOTIC BEHAVIOR 11/23/2011 [employer], [place] A 296.33 MO DEPRESSIVE RECURRENT SEVERE W/O PSYCHOTIC BEHAVIOR 11/23/2011 [employer], YUSRA L 296.33 MO DEPRESSIVE RECURRENT SEVERE W/O PSYCHOTIC BEHAVIOR 11/23/2011 [employer], YUSRA L 296.33 MO DEPRESSIVE RECURRENT SEVERE W/O PSYCHOTIC BEHAVIOR 11/23/2011 [employer], YUSRA L 296.33 MO DEPRESSIVE RECURRENT SEVERE W/O PSYCHOTIC BEHAVIOR 11/23/2011 [employer], YUSRA L 296.33 MO DEPRESSIVE RECURRENT SEVERE W/O PSYCHOTIC BEHAVIOR 11/23/2011 [facility], [place] R 296.33 MO DEPRESSIVE RECURRENT SEVERE W/O PSYCHOTIC BEHAVIOR 11/23/2011 [facility], [place] R 296.33 MO DEPRESSIVE RECURRENT SEVERE W/O PSYCHOTIC BEHAVIOR 01/24/2012 300.02 AN GEN ANXIETY 01/24/2012 300.02 AN GEN ANXIETY 01/24/2012 300.02 AN GEN ANXIETY 01/24/2012 300.02 AN GEN ANXIETY 01/24/2012 300.02 AN GEN ANXIETY 01/24/2012 300.02 AN GEN ANXIETY 01/24/2012 300.02 AN GEN ANXIETY 01/24/2012 300.02 AN GEN ANXIETY 01/24/2012 300.02 AN GEN ANXIETY 01/24/2012 300.02 AN GEN ANXIETY 01/24/2012 KATERINE LOPEZ APRN 300.02 AN GEN ANXIETY 01/24/2012 [facility], [place] 300.02 AN GEN ANXIETY 01/24/2012 [facility], [place] R 300.02 AN GEN ANXIETY 01/24/2012 [facility], [place] R 300.02 AN GEN ANXIETY 01/24/2012 [facility], [place] R 300.02 AN GEN ANXIETY 01/24/2012 [facility], [place] R 300.02 AN GEN ANXIETY 01/24/2012 [employer], [place] A 300.02 AN GEN ANXIETY 01/24/2012 [facility], [place] R 300.02 AN GEN ANXIETY 01/24/2012 KATERINE LOPEZ APRN 300.02 AN GEN ANXIETY 01/24/2012 [facility], [place] 300.02 AN GEN ANXIETY 01/24/2012 [facility], [place] R 300.02 AN GEN ANXIETY 01/24/2012 [facility], [place] R 300.02 AN GEN ANXIETY 01/24/2012 KATERINE LOPEZ APRN 300.02 AN GEN ANXIETY 01/24/2012 KATERINE LOPEZ APRN 300.02 AN GEN ANXIETY 01/24/2012 KATERINE LOPEZ APRN 300.02 AN GEN ANXIETY 01/24/2012 [facility], [place] 300.02 AN GEN ANXIETY 01/24/2012 ROSALVA VALDIVIA APRNIDI A 300.02 AN GEN ANXIETY 01/24/2012 [facility], [place] 300.02 AN GEN ANXIETY 01/24/2012 [facility], [place] R 300.02 AN GEN ANXIETY 01/24/2012 [facility], [place] R 300.02 AN GEN ANXIETY 01/24/2012 [facility], [place] R 300.02 AN GEN ANXIETY 01/24/2012 [employer], [place] A 300.02 AN GEN ANXIETY 01/24/2012 [employer], YUSRA L 300.02 AN GEN ANXIETY 01/24/2012 [employer], YUSRA L 300.02 AN GEN ANXIETY 01/24/2012 [employer], YUSRA L 300.02 AN GEN ANXIETY 01/24/2012 [employer], YUSRA L 300.02 AN GEN ANXIETY 01/24/2012 [facility], [place] R 300.02 AN GEN ANXIETY 01/24/2012 [facility], [place] R 300.02 AN GEN ANXIETY 12/21/2012 131.01 TRICHOMONAL VULVOVAGINITIS 12/21/2012 V73.81 HPV SCREENING 12/21/2012 V76.10 BREAST CANCER SCREENING 12/21/2012 V76.2 CERVICAL CANCER SCREENING (PAP SMEAR) 12/21/2012 131.01 TRICHOMONAL VULVOVAGINITIS 12/21/2012 V73.81 HPV SCREENING 12/21/2012 V76.10 BREAST CANCER SCREENING 12/21/2012 V76.2 CERVICAL CANCER SCREENING (PAP SMEAR) 12/21/2012 131.01 TRICHOMONAL VULVOVAGINITIS 12/21/2012 V73.81 HPV SCREENING 12/21/2012 V76.10 BREAST CANCER SCREENING 12/21/2012 V76.2 CERVICAL CANCER SCREENING (PAP SMEAR) 12/21/2012 131.01 TRICHOMONAL VULVOVAGINITIS 12/21/2012 V73.81 HPV SCREENING 12/21/2012 V76.10 BREAST CANCER SCREENING 12/21/2012 V76.2 CERVICAL CANCER SCREENING (PAP SMEAR) 12/21/2012 131.01 TRICHOMONAL VULVOVAGINITIS 12/21/2012 V73.81 HPV SCREENING 12/21/2012 V76.10 BREAST CANCER SCREENING 12/21/2012 V76.2 CERVICAL CANCER SCREENING (PAP SMEAR) 12/21/2012 131.01 TRICHOMONAL VULVOVAGINITIS 12/21/2012 V73.81 HPV SCREENING 12/21/2012 V76.10 BREAST CANCER SCREENING 12/21/2012 V76.2 CERVICAL CANCER SCREENING (PAP SMEAR) 12/21/2012 KATERINE LOPEZ APRN 131.01 TRICHOMONAL VULVOVAGINITIS 12/21/2012 KATERINE LOPEZ APRN V73.81 HPV SCREENING 12/21/2012 KATERINE LOPEZ APRN V76.10 BREAST CANCER SCREENING 12/21/2012 KATERINE LOPEZ APRN V76.2 CERVICAL CANCER SCREENING (PAP SMEAR) 12/21/[facility] TRICHOMONAL VULVOVAGINITIS 12/21/2012 [facility] HPV SCREENING 12/21/2012 [facility] V[facility].10 BREAST CANCER SCREENING 12/21/2012 [facility] CERVICAL CANCER SCREENING (PAP SMEAR) 12/21/2012 [facility] 131.01 TRICHOMONAL VULVOVAGINITIS 12/21/2012 [facility], [place] R V73.81 HPV SCREENING 12/21/2012 [facility], [place] R V76.10 BREAST CANCER SCREENING 12/21/2012 [facility], [place] R V76.2 CERVICAL CANCER SCREENING (PAP SMEAR) 12/21/2012 [facility], [place] R 131.01 TRICHOMONAL VULVOVAGINITIS 12/21/2012 [facility], [place] R V73.81 HPV SCREENING 12/21/2012 [facility], [place] R V76.10 BREAST CANCER SCREENING 12/21/2012 [facility], [place] R V76.2 CERVICAL CANCER SCREENING (PAP SMEAR) 12/21/2012 [facility], [place] R 131.01 TRICHOMONAL VULVOVAGINITIS 12/21/2012 [facility], [place] R V73.81 HPV SCREENING 12/21/2012 [facility], [place] R V76.10 BREAST CANCER SCREENING 12/21/2012 [facility], [place] R V76.2 CERVICAL CANCER SCREENING (PAP SMEAR) 12/21/2012 [facility], [place] R 131.01 TRICHOMONAL VULVOVAGINITIS 12/21/2012 [facility], [place] R V73.81 HPV SCREENING 12/21/2012 [facility], [place] R V76.10 BREAST CANCER SCREENING 12/21/2012 [facility], [place] R V76.2 CERVICAL CANCER SCREENING (PAP SMEAR) 12/21/2012 [place] [place], [place] A 131.01 TRICHOMONAL VULVOVAGINITIS 12/21/2012 [place], [place] A V73.81 HPV SCREENING 12/21/2012 [employer], [place] A V76.10 BREAST CANCER SCREENING 12/21/2012 [employer], [place] A V76.2 CERVICAL CANCER SCREENING (PAP SMEAR) 12/21/2012 [facility], [place] R 131.01 TRICHOMONAL VULVOVAGINITIS 12/21/2012 [facility], [place] R V73.81 HPV SCREENING 12/21/2012 [facility], [place] R V76.10 BREAST CANCER SCREENING 12/21/2012 [facility], [place] R V76.2 CERVICAL CANCER SCREENING (PAP SMEAR) 12/21/2012 KATERINE LOPEZ APRN 131.01 TRICHOMONAL VULVOVAGINITIS 12/21/2012 KATERINE LOPEZ APRN V73.81 HPV SCREENING 12/21/2012 KATERINE LOPEZ APRN V76.10 BREAST CANCER SCREENING 12/21/2012 KATERINE LOPEZ APRN V76.2 CERVICAL CANCER SCREENING (PAP SMEAR) 12/21/2012 [facility], [place] R 131.01 TRICHOMONAL VULVOVAGINITIS 12/21/2012 [facility], [place] R V73.81 HPV SCREENING 12/21/2012 [facility], [place] R V76.10 BREAST CANCER SCREENING 12/21/2012 [facility], [place] R V76.2 CERVICAL CANCER SCREENING (PAP SMEAR) 12/21/2012 [facility], [place] R 131.01 TRICHOMONAL VULVOVAGINITIS 12/21/2012 [facility], [place] R V73.81 HPV SCREENING 12/21/2012 [facility], [place] R V76.10 BREAST CANCER SCREENING 12/21/2012 [facility], [place] R V76.2 CERVICAL CANCER SCREENING (PAP SMEAR) 12/21/2012 [facility], [place] R 131.01 TRICHOMONAL VULVOVAGINITIS 12/21/2012 [facility], [place] R V73.81 HPV SCREENING 12/21/2012 [facility], [place] R V76.10 BREAST CANCER SCREENING 12/21/2012 [facility], [place] R V76.2 CERVICAL CANCER SCREENING (PAP SMEAR) 12/21/2012 KATERINE LOPEZ APRN 131.01 TRICHOMONAL VULVOVAGINITIS 12/21/2012 KATERINE LOPEZ APRN V73.81 HPV SCREENING 12/21/2012 KATERINE LOPEZ APRN V76.10 BREAST CANCER SCREENING 12/21/2012 KATERINE LOPEZ APRN V76.2 CERVICAL CANCER SCREENING (PAP SMEAR) 12/21/2012 KATERINE LOPEZ APRN 131.01 TRICHOMONAL VULVOVAGINITIS 12/21/2012 KATERINE LOPEZ APRN V73.81 HPV SCREENING 12/21/2012 KATERINE LOPEZ APRN V76.10 BREAST CANCER SCREENING 12/21/2012 KATERINE LOPEZ APRN V76.2 CERVICAL CANCER SCREENING (PAP SMEAR) 12/21/2012 KATERINE LOPEZ APRN 131.01 TRICHOMONAL VULVOVAGINITIS 12/21/2012 KATERINE LOPEZ APRN V73.81 HPV SCREENING 12/21/2012 KATERINE LOPEZ APRN V76.10 BREAST CANCER SCREENING 12/21/2012 KATERINE LOPEZ APRN V76.2 CERVICAL CANCER SCREENING (PAP SMEAR) 12/21/2012 [facility], [place] 131.01 TRICHOMONAL VULVOVAGINITIS 12/21/2012 [facility], [place] R V73.81 HPV SCREENING 12/21/2012 [facility], [place] R V76.10 BREAST CANCER SCREENING 12/21/2012 [facility], [place] R V76.2 CERVICAL CANCER SCREENING (PAP SMEAR) 12/21/2012 [place], [place] 131.01 TRICHOMONAL VULVOVAGINITIS 12/21/2012 [place], [place] A V73.81 HPV SCREENING 12/21/2012 [place], [place] A V76.10 BREAST CANCER SCREENING 12/21/2012 [place], [place] A V76.2 CERVICAL CANCER SCREENING (PAP SMEAR) 12/21/2012 [facility], [place] R 131.01 TRICHOMONAL VULVOVAGINITIS 12/21/2012 [facility], [place] R V73.81 HPV SCREENING 12/21/2012 [facility], [place] R V76.10 BREAST CANCER SCREENING 12/21/2012 [facility], [place] R V76.2 CERVICAL CANCER SCREENING (PAP SMEAR) 12/21/2012 [facility], [place] R 131.01 TRICHOMONAL VULVOVAGINITIS 12/21/2012 [facility], [place] R V73.81 HPV SCREENING 12/21/2012 [facility], [place] R V76.10 BREAST CANCER SCREENING 12/21/2012 [facility], [place] R V76.2 CERVICAL CANCER SCREENING (PAP SMEAR) 12/21/2012 [facility], [place] R 131.01 TRICHOMONAL VULVOVAGINITIS 12/21/2012 [facility], [place] R V73.81 HPV SCREENING 12/21/2012 [facility], [place] R V76.10 BREAST CANCER SCREENING 12/21/2012 [facility], [place] R V76.2 CERVICAL CANCER SCREENING (PAP SMEAR) 12/21/2012 [facility], [place] R 131.01 TRICHOMONAL VULVOVAGINITIS 12/21/2012 [facility], [place] R V73.81 HPV SCREENING 12/21/2012 [facility], [place] R V76.10 BREAST CANCER SCREENING 12/21/2012 [facility], [place] R V76.2 CERVICAL CANCER SCREENING (PAP SMEAR) 12/21/2012 [employer], [place] A 131.01 TRICHOMONAL VULVOVAGINITIS 12/21/2012 [employer], [place] A V73.81 HPV SCREENING 12/21/2012 [employer], [place] A V76.10 BREAST CANCER SCREENING 12/21/2012 [employer], [place] A V76.2 CERVICAL CANCER SCREENING (PAP SMEAR) 12/21/2012 [employer], YUSRA L 131.01 TRICHOMONAL VULVOVAGINITIS 12/21/2012 [employer], YUSRA L V73.81 HPV SCREENING 12/21/2012 [employer], YUSRA L V76.10 BREAST CANCER SCREENING 12/21/2012 [employer], YUSRA L V76.2 CERVICAL CANCER SCREENING (PAP SMEAR) 12/21/2012 [employer], YUSRA L 131.01 TRICHOMONAL VULVOVAGINITIS 12/21/2012 [employer], YUSRA L V73.81 HPV SCREENING 12/21/2012 [employer], YUSRA L V76.10 BREAST CANCER SCREENING 12/21/2012 [employer], YUSRA L V76.2 CERVICAL CANCER SCREENING (PAP SMEAR) 12/21/2012 [employer], YUSRA L 131.01 TRICHOMONAL VULVOVAGINITIS 12/21/2012 [employer], YUSRA L V73.81 HPV SCREENING 12/21/2012 [employer], YUSRA L V76.10 BREAST CANCER SCREENING 12/21/2012 [employer], YUSRA L V76.2 CERVICAL CANCER SCREENING (PAP SMEAR) 12/21/2012 [employer], YUSRA L 131.01 TRICHOMONAL VULVOVAGINITIS 12/21/2012 [employer], YUSRA L V73.81 HPV SCREENING 12/21/2012 [employer], YUSRA L V76.10 BREAST CANCER SCREENING 12/21/2012 [employer], YUSRA L V76.2 CERVICAL CANCER SCREENING (PAP SMEAR) 12/21/2012 [facility], [place] 131.01 TRICHOMONAL VULVOVAGINITIS 12/21/2012 [facility], [place] R V73.81 HPV SCREENING 12/21/2012 [facility], [place] R V76.10 BREAST CANCER SCREENING 12/21/2012 [facility], [place] R V76.2 CERVICAL CANCER SCREENING (PAP SMEAR) 12/21/2012 [facility], [place] R 131.01 TRICHOMONAL VULVOVAGINITIS 12/21/2012 [facility], [place] R V73.81 HPV SCREENING 12/21/2012 [facility], [place] R V76.10 BREAST CANCER SCREENING 12/21/2012 [facility], [place] R V76.2 CERVICAL CANCER SCREENING (PAP SMEAR) 02/15/2013 692.9 CONTACT DERMATITIS AND OTHER ECZEMA UNSPECIFIED CAUSE 02/15/2013 692.9 CONTACT DERMATITIS AND OTHER ECZEMA UNSPECIFIED CAUSE 02/15/2013 692.9 CONTACT DERMATITIS AND OTHER ECZEMA UNSPECIFIED CAUSE 02/15/2013 692.9 CONTACT DERMATITIS AND OTHER ECZEMA UNSPECIFIED CAUSE 02/15/2013 KATERINE LOPEZ APRN 692.9 CONTACT DERMATITIS AND OTHER ECZEMA UNSPECIFIED CAUSE 02/15/2013 [facility], [place] R 692.9 CONTACT DERMATITIS AND OTHER ECZEMA UNSPECIFIED CAUSE 02/15/2013 [facility], [place] R 692.9 CONTACT DERMATITIS AND OTHER ECZEMA UNSPECIFIED CAUSE 02/15/2013 [facility], [place] R 692.9 CONTACT DERMATITIS AND OTHER ECZEMA UNSPECIFIED CAUSE 02/15/2013 [facility], [place] R 692.9 CONTACT DERMATITIS AND OTHER ECZEMA UNSPECIFIED CAUSE 02/15/2013 [facility], [place] R 692.9 CONTACT DERMATITIS AND OTHER ECZEMA UNSPECIFIED CAUSE 02/15/2013 [place] VALDIV[place] APRN 692.9 CONTACT DERMATITIS AND OTHER ECZEMA UNSPECIFIED CAUSE 02/15/2013 [facility], [place] R 692.9 CONTACT DERMATITIS AND OTHER ECZEMA UNSPECIFIED CAUSE 02/15/2013 [employer] [employer] 692.9 CONTACT DERMATITIS AND OTHER ECZEMA UNSPECIFIED CAUSE 02/15/2013 [facility], [place] R 692.9 CONTACT DERMATITIS AND OTHER ECZEMA UNSPECIFIED CAUSE 02/15/2013 [facility], [place] R 692.9 CONTACT DERMATITIS AND OTHER ECZEMA UNSPECIFIED CAUSE 02/15/2013 [facility], [place] R 692.9 CONTACT DERMATITIS AND OTHER ECZEMA UNSPECIFIED CAUSE 02/15/2013 [employer], KATERINE D 692.9 CONTACT DERMATITIS AND OTHER ECZEMA UNSPECIFIED CAUSE 02/15/2013 [employer], KATERINE D 692.9 CONTACT DERMATITIS AND OTHER ECZEMA UNSPECIFIED CAUSE 02/15/2013 [employer], KATERINE D 692.9 CONTACT DERMATITIS AND OTHER ECZEMA UNSPECIFIED CAUSE 02/15/2013 [facility], [place] R 692.9 CONTACT DERMATITIS AND OTHER ECZEMA UNSPECIFIED CAUSE 02/15/2013 [employer], [place] A 692.9 CONTACT DERMATITIS AND OTHER ECZEMA UNSPECIFIED CAUSE 02/15/2013 [facility], [place] R 692.9 CONTACT DERMATITIS AND OTHER ECZEMA UNSPECIFIED CAUSE 02/15/2013 [facility], [place] R 692.9 CONTACT DERMATITIS AND OTHER ECZEMA UNSPECIFIED CAUSE 02/15/2013 [facility], [place] R 692.9 CONTACT DERMATITIS AND OTHER ECZEMA UNSPECIFIED CAUSE 02/15/2013 [facility], [place] R 692.9 CONTACT DERMATITIS AND OTHER ECZEMA UNSPECIFIED CAUSE 02/15/2013 [employer], [place] A 692.9 CONTACT DERMATITIS AND OTHER ECZEMA UNSPECIFIED CAUSE 02/15/2013 [employer], YUSRA L 692.9 CONTACT DERMATITIS AND OTHER ECZEMA UNSPECIFIED CAUSE 02/15/2013 [employer], YSURA L 692.9 CONTACT DERMATITIS AND OTHER ECZEMA UNSPECIFIED CAUSE 02/15/2013 [employer], YUSRA L 692.9 CONTACT DERMATITIS AND OTHER ECZEMA UNSPECIFIED CAUSE 02/15/2013 [employer], YUSRA L 692.9 CONTACT DERMATITIS AND OTHER ECZEMA UNSPECIFIED CAUSE 02/15/2013 [facility], [place] R 692.9 CONTACT DERMATITIS AND OTHER ECZEMA UNSPECIFIED CAUSE 02/15/2013 [facility], [place] R 692.9 CONTACT DERMATITIS AND OTHER ECZEMA UNSPECIFIED CAUSE 07/30/2013 [employer], [place] A V25.01 CONTRACEPTION - ORAL CONTRACEPTION 07/30/2013 [facility], [place] R V25.01 CONTRACEPTION - ORAL CONTRACEPTION 07/30/2013 KATERINE LOPEZ APRN V25.01 CONTRACEPTION - ORAL CONTRACEPTION 07/30/2013 [facility], [place] R V25.01 CONTRACEPTION - ORAL CONTRACEPTION 07/30/2013 [facility], [place] R V25.01 CONTRACEPTION - ORAL CONTRACEPTION 07/30/2013 [facility], [place] R V25.01 CONTRACEPTION - ORAL CONTRACEPTION 07/30/2013 KATERINE LOPEZ APRN V25.01 CONTRACEPTION - ORAL CONTRACEPTION 07/30/2013 KATERINE LOPEZ APRN V25.01 CONTRACEPTION - ORAL CONTRACEPTION 07/30/2013 KATERINE LOPEZ APRN V25.01 CONTRACEPTION - ORAL CONTRACEPTION 07/30/2013 [facility], [place] R V25.01 CONTRACEPTION - ORAL CONTRACEPTION 07/30/2013 [employer] [place], [place] A V25.01 CONTRACEPTION - ORAL CONTRACEPTION 07/30/2013 [facility], [place] R V25.01 CONTRACEPTION - ORAL CONTRACEPTION 07/30/2013 [facility], [place] V25.01 CONTRACEPTION - ORAL CONTRACEPTION 07/30/2013 [facility], [place] R V25.01 CONTRACEPTION - ORAL CONTRACEPTION 07/30/2013 [facility], [place] R V25.01 CONTRACEPTION - ORAL CONTRACEPTION 07/30/2013 [employer] [place], [place] A V25.01 CONTRACEPTION - ORAL CONTRACEPTION 07/30/2013 [employer], YUSRA L V25.01 CONTRACEPTION - ORAL CONTRACEPTION 07/30/2013 [employer], YUSRA L V25.01 CONTRACEPTION - ORAL CONTRACEPTION 07/30/2013 [employer], YUSRA L V25.01 CONTRACEPTION - ORAL CONTRACEPTION 07/30/2013 [employer], YUSAR L V25.01 CONTRACEPTION - ORAL CONTRACEPTION 07/30/2013 [facility], [place] R V25.01 CONTRACEPTION - ORAL CONTRACEPTION 07/30/2013 [facility], [place] V25.01 CONTRACEPTION - ORAL CONTRACEPTION 11/27/2013 [employer], [place] A V74.5 STD SCREEN 11/27/2013 [facility], [place] R V74.5 STD SCREEN 11/27/2013 [facility], [place] R V74.5 STD SCREEN 11/27/2013 [facility], [place] R V74.5 STD SCREEN 11/27/2013 [facility], [place] R V74.5 STD SCREEN 11/27/2013 [employer], [place] A V74.5 STD SCREEN 11/27/2013 [employer], YUSRA L V74.5 STD SCREEN 11/27/2013 [employer], YUSRA L V74.5 STD SCREEN 11/27/2013 [employer], YUSRA L V74.5 STD SCREEN 11/27/2013 [employer], YUSRA L V74.5 STD SCREEN 11/27/2013 [facility] [place] V74.5 STD SCREEN 11/27/2013 [facility] [place] R V74.5 STD SCREEN 12/11/2013 [facility], [place] R 296.35 MO DEPRESSIVE RECURRENT IN PART OR UNSPECIFIED REMISSION 12/11/2013 [facility], [place] R 296.35 MO DEPRESSIVE RECURRENT IN PART OR UNSPECIFIED REMISSION 12/11/2013 [facility], [place] R 296.35 MO DEPRESSIVE RECURRENT IN PART OR UNSPECIFIED REMISSION 12/11/2013 [facility], [place] R 296.35 MO DEPRESSIVE RECURRENT IN PART OR UNSPECIFIED REMISSION 12/11/2013 [employer], [place] A 296.35 MO DEPRESSIVE RECURRENT IN PART OR UNSPECIFIED REMISSION 12/11/2013 [employer], YUSRA L 296.35 MO DEPRESSIVE RECURRENT IN PART OR UNSPECIFIED REMISSION 12/11/2013 [employer], YUSRA L 296.35 MO DEPRESSIVE RECURRENT IN PART OR UNSPECIFIED REMISSION 12/11/2013 [employer], YUSRA L 296.35 MO DEPRESSIVE RECURRENT IN PART OR UNSPECIFIED REMISSION 12/11/2013 [employer], YUSRA L 296.35 MO DEPRESSIVE RECURRENT IN PART OR UNSPECIFIED REMISSION 12/11/2013 [facility], [place] R 296.35 MO DEPRESSIVE RECURRENT IN PART OR UNSPECIFIED REMISSION 12/11/2013 [facility], [place] R 296.35 MO DEPRESSIVE RECURRENT IN PART OR UNSPECIFIED REMISSION 02/21/2014 [facility], [place] R 296.31 MO DEPRESSIVE RECURRENT MILD 02/21/2014 [facility], [place] R 296.31 MO DEPRESSIVE RECURRENT MILD 02/21/2014 [employer], [place] A 296.31 MO DEPRESSIVE RECURRENT MILD 02/21/2014 [employer], YUSRA L 296.31 MO DEPRESSIVE RECURRENT MILD 02/21/2014 [employer], YUSRA L 296.31 MO DEPRESSIVE RECURRENT MILD 02/21/2014 [employer], YUSRA L 296.31 MO DEPRESSIVE RECURRENT MILD 02/21/2014 [employer], YUSRA L 296.31 MO DEPRESSIVE RECURRENT MILD 02/21/2014 [facility], [place] R 296.31 MO DEPRESSIVE RECURRENT MILD 02/21/2014 [facility], [place] R 296.31 MO DEPRESSIVE RECURRENT MILD 08/09/2014 Ot V22.2 08/09/2014 BELEM LANGLEY, ALONDRA Frye Ot 246.9 DISORDER OF THYROID NOS 08/09/2014 BELEM LANGLEY, ALONDRA T Ot 458.0 ORTHOSTATIC HYPOTENSION 08/09/2014 ALONDRA PATRICIA MD T Ot 780.2 SYNCOPE AND COLLAPSE 08/09/2014 ALONDRA PATRICIA MD T Ot 780.79 OTH MALAISE FATIGUE 08/12/2014 [employer], YUSRA L 780.79 FATIGUE 08/12/2014 [employer], YUSRA L 780.79 FATIGUE 08/12/2014 [employer], YUSRA L 780.79 FATIGUE 08/12/2014 [employer], YUSRA L 780.79 FATIGUE 08/12/2014 [facility], [place] R 780.79 FATIGUE 08/12/2014 [facility] [place] R 780.79 FATIGUE 08/12/2014 ALONDRA PATRICIA MD T Ot 246.9 08/12/2014 ALONDRA PATRICIA MD T Ot 458.0 08/12/2014 ALONDRA PATRICIA MD T Ot 780.2 08/12/2014 ALONDRA PATRICIA MD T Ot 780.79 08/21/2014 [employer], YUSRA L 719.40 PAIN IN JOINT SITE UNSPECIFIED 08/21/2014 [employer], YUSRA L 729.1 MYALGIA AND MYOSITIS UNSPECIFIED 08/21/2014 [employer], YUSRA L 794.5 NONSPECIFIC ABNORMAL RESULTS OF FUNCTION STUDY OF THYROID 08/21/2014 [employer], YUSRA L 719.40 PAIN IN JOINT SITE UNSPECIFIED 08/21/2014 [employer], YUSRA L 729.1 MYALGIA AND MYOSITIS UNSPECIFIED 08/21/2014 [employer], YUSRA L 794.5 NONSPECIFIC ABNORMAL RESULTS OF FUNCTION STUDY OF THYROID 08/21/2014 [employer], YUSRA L 719.40 PAIN IN JOINT SITE UNSPECIFIED 08/21/2014 [employer], YUSRA L 729.1 MYALGIA AND MYOSITIS UNSPECIFIED 08/21/2014 [employer], YUSRA L 794.5 NONSPECIFIC ABNORMAL RESULTS OF FUNCTION STUDY OF THYROID 08/21/2014 [employer], YUSRA L 719.40 PAIN IN JOINT SITE UNSPECIFIED 08/21/2014 [employer], YUSRA L 729.1 MYALGIA AND MYOSITIS UNSPECIFIED 08/21/2014 [employer], YUSRA L 794.5 NONSPECIFIC ABNORMAL RESULTS OF FUNCTION STUDY OF THYROID 08/21/2014 [facility] [place] R 719.40 PAIN IN JOINT SITE UNSPECIFIED 08/21/2014 [facility] [place] R 729.1 MYALGIA AND MYOSITIS UNSPECIFIED 08/21/2014 [facility] [place] R 794.5 NONSPECIFIC ABNORMAL RESULTS OF FUNCTION STUDY OF THYROID 08/21/2014 [facility] [place] R 719.40 PAIN IN JOINT SITE UNSPECIFIED 08/21/2014 [facility] [place] R 729.1 MYALGIA AND MYOSITIS UNSPECIFIED 08/21/2014 [facility] [place] R 794.5 NONSPECIFIC ABNORMAL RESULTS OF FUNCTION STUDY OF THYROID 08/27/2014 Ot V22.2 08/28/2014 [employer], YUSRA L 285.9 ANEMIA 08/28/2014 [employer], YUSRA L 285.9 ANEMIA 08/28/2014 [facility] [place] R 285.9 ANEMIA 08/28/2014 [facility] [place] R 285.9 ANEMIA 10/06/2014 Ot V22.2 10/06/2014 Ot 285.9 10/06/2014 Ot 565.0 10/06/2014 Ot 578.1 10/06/2014 Ot V72.84 10/15/2014 Ot 285.9 10/15/2014 Ot 565.0 10/15/2014 Ot 578.1 10/15/2014 Ot 285.9 10/15/2014 Ot 565.0 10/15/2014 Ot 578.1 10/21/2014 Ot V22.2 10/21/2014 Ot 285.9 10/21/2014 Ot 565.0 10/21/2014 Ot 578.1 10/21/2014 Ot V72.84 10/24/2014 Ot V22.2 10/24/2014 Ot 285.9 10/24/2014 Ot 565.0 10/24/2014 Ot 578.1 10/24/2014 Ot V72.84 10/24/2014 Ot V22.2 10/24/2014 Ot 285.9 10/24/2014 Ot 565.0 10/24/2014 Ot 578.1 10/24/2014 Ot V72.84 11/01/2014 Ot V22.2 11/01/2014 Ot 285.9 11/01/2014 Ot 565.0 11/01/2014 Ot 578.1 11/01/2014 Ot V72.84 11/01/2014 Ot 285.9 11/01/2014 Ot 565.0 11/01/2014 Ot 578.1 12/13/2014 SOY THURMAN Ot 300.00 ANXIETY STATE NOS 12/13/2014 SOY THURMAN Ot 729.1 MYALGIA AND MYOSITIS NOS 12/13/2014 SOY THURMAN Ot 780.79 OTH MALAISE FATIGUE 12/13/2014 SOY THURMAN Ot 783.0 ANOREXIA 12/30/2014 GOKUL LANGLEY, BROCK Ot 280.9 12/30/2014 GOKUL LANGLEY, BROCK Ot 565.0 12/30/2014 GEN HODGSON MDWOODY Ot 729.1 12/30/2014 GOKUL LANGLEY, BROCK Ot 780.79 12/30/2014 BROCK HODGSON MD Ot V62.89 01/30/2015 BROCK HODGSON MD Ot 280.9 IRON DEFIC ANEMIA NOS 01/30/2015 GOKUL LANGLEY, BROCK Ot 565.0 ANAL FISSURE 01/30/2015 BROCK HODGSON MD Ot 729.1 MYALGIA AND MYOSITIS NOS 01/30/2015 GOKUL LANGLEY, BROCK Ot 780.79 OTH MALAISE FATIGUE 01/30/2015 BROCK HODGSON MD Ot V62.89 PSYCHOLOGICAL STRESS NEC 08/05/2015 SAVANA LANGLEY, BG Adamson Ot M79.7 08/15/2015 SAVANA LANGLEY, BG Adamson Ot M79.7 08/29/2015 SAVANA LANGLEY, BG Adamson Ot M79.7 09/09/2015 SAVANA LANGLEY, BG Adamson Ot M79.7 09/09/2015 SAVANA LANGLEY, BG Adamson Ot M79.7 09/11/2015 SAVANA LANGLEY, BG Adamson Ot M79.7 09/30/2015 SAVANA LANGLEY, BG Adamson Ot M79.7 10/14/2015 SAVANA LANGLEY, BG Adamson Ot M79.7 10/27/2015 SAVANA LANGLEY, BG Adamson Ot M79.7 FIBROMYALGIA 10/28/2015 SAVANA LANGLEY, BG Adamson Ot M79.7 10/31/2015 SAVANA LANGLEY, BG Adamson Ot M79.7 FIBROMYALGIA 11/11/2015 SAVANA LANGLEY, BG Adamson Ot M79.7 FIBROMYALGIA 11/18/2015 SAVANA LANGLEY, BG Adamson Ot M79.7 FIBROMYALGIA 12/08/2015 SAVANA LANGLEY, BG Adamson Ot M79.7 FIBROMYALGIA 12/11/2015 SAVANA LANGLEY, BG Adamson Ot M79.7 FIBROMYALGIA 12/18/2015 SAVANA LANGLEY, BG Adamson Ot M79.7 FIBROMYALGIA 04/27/2016 Ot V22.2 PREG STATE, INCIDENTAL 04/27/2016 Ot 285.9 ANEMIA NOS 04/27/2016 Ot 565.0 ANAL FISSURE 04/27/2016 Ot 578.1 BLOOD IN STOOL 04/27/2016 Ot V72.84 EXAM PRE- OPERATIVE NOS 04/27/2016 GOKUL LANGLEY, BROCK Ot 280.9 IRON DEFIC ANEMIA NOS 04/27/2016 GOKUL LANGLEY, BROCK Ot 565.0 ANAL FISSURE 04/27/2016 GOKUL LANGLEY, BROCK Ot 729.1 MYALGIA AND MYOSITIS NOS 04/27/2016 GOKUL LANGLEY, BROCK Ot 780.79 OTH MALAISE FATIGUE 04/27/2016 BROCK HODGSON MD Ot V62.89 PSYCHOLOGICAL STRESS NEC 04/28/2016 MADL, YUSRA L [employer] BUSINESS ANALYST Ot N92.1 EXCESSIVE AND FREQUENT MENSTRUATION WITH 04/28/2016 MADL, YUSRA L [employer] BUSINESS ANALYST Ot N94.6 DYSMENORRHEA, UNSPECIFIED 05/07/2016 MADL, YUSRA L [employer] ANALYST Ot N92.1 EXCESSIVE AND FREQUENT MENSTRUATION WITH 05/07/2016 MADL, YUSRA L [employer] BUSINESS ANALYST Ot N94.6 DYSMENORRHEA, UNSPECIFIED 07/03/2016 SOY THURMAN Ot S69.82XA OTH INJURIES OF LEFT WRIST, HAND AND FIN 07/03/2016 SOY THURMAN Ot S69.92XA UNSP INJURY OF LEFT WRIST, HAND AND FING 07/03/2016 SOY THURMAN Ot W01.0XXA FALL SAME LEV FROM SLIP/TRIP W/O STRIKE 07/03/2016 SOY THURMAN Ot Y92.[address] IN [facility] NON-[facility] (PRIVATE 07/03/2016 SOY THURMAN Ot Y99.8 OTHER EXTERNAL CAUSE STATUS 07/05/2016 SOY THURMAN Ot S69.82XA OTH INJURIES OF LEFT WRIST, HAND AND FIN 07/05/2016 SOY THURMAN Ot S69.92XA UNSP INJURY OF LEFT WRIST, HAND AND FING 07/05/2016 SOY THURMAN Ot W01.0XXA FALL SAME LEV FROM SLIP/TRIP W/O STRIKE 07/05/2016 SOY THURMAN Ot Y92.[address] IN [facility] NON[facility] (PRIVATE 07/05/2016 SOY THURMAN Ot Y99.8 OTHER EXTERNAL CAUSE STATUS 07/26/2016 Ot V22.2 PREG STATE, INCIDENTAL 07/26/2016 Ot 285.9 ANEMIA NOS 07/26/2016 Ot 565.0 ANAL FISSURE 07/26/2016 Ot 578.1 BLOOD IN STOOL 07/26/2016 Ot V72.84 EXAM PRE- OPERATIVE NOS 07/26/2016 BROCK HODGSON MD Ot 280.9 IRON DEFIC ANEMIA NOS 07/26/2016 BROCK HODGSON MD Ot 565.0 ANAL FISSURE 07/26/2016 BROCK HODGSON MD Ot 729.1 MYALGIA AND MYOSITIS NOS 07/26/2016 BROCK HODGSON MD Ot 780.79 OTH MALAISE FATIGUE 07/26/2016 BROCK HODGSON MD Ot V62.89 PSYCHOLOGICAL STRESS NEC 07/26/2016 MADLYUSRA [employer] BUSINESS ANALYST Ot N92.1 EXCESSIVE AND FREQUENT MENSTRUATION WITH 07/26/2016 YUSRA JIMENEZ [employer] BUSINESS ANALYST Ot N94.6 DYSMENORRHEA, UNSPECIFIED 07/26/2016 BROCK HODGSON MD Ot 280.9 IRON DEFIC ANEMIA NOS 07/26/2016 BROCK HODGSON MD Ot 565.0 ANAL FISSURE 07/26/2016 BROCK HOGDSON MD Ot 729.1 MYALGIA AND MYOSITIS NOS 07/26/2016 BROCK HODGSON MD Ot 780.79 OTH MALAISE FATIGUE 07/26/2016 BROCK HODGSON MD Ot V62.89 PSYCHOLOGICAL STRESS NEC 07/26/2016 JAIRO LENZ MD Ot D25.9 LEIOMYOMA OF UTERUS, UNSPECIFIED 07/26/2016 JAIRO LENZ MD Ot D50.9 IRON DEFICIENCY ANEMIA, UNSPECIFIED 07/26/2016 JAIRO LENZ MD Ot N93.9 ABNORMAL UTERINE AND VAGINAL BLEEDING, U 07/26/2016 JAIRO LENZ MD Ot Z01.812 ENCOUNTER FOR PREPROCEDURAL LABORATORY E 07/26/2016 JAIRO LENZ MD Ot Z11.2 ENCOUNTER FOR SCREENING FOR OTHER BACTER 07/27/2016 JAIRO LENZ MD Ot D25.9 LEIOMYOMA OF UTERUS, UNSPECIFIED 07/27/2016 JAIRO LENZ MD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
[2017-07-25 16:48] LABS: BASOPHILS # (AUTO) 0.1 10^3/uL (0.0-0.1); BASOPHILS % (AUTO) 1 % (0-10); EOSINOPHILS # (AUTO) 0.1 10^3/uL (0.0-0.3); EOSINOPHILS % (AUTO) 2 % (0-10); HEMATOCRIT 33 % (35-52); HEMOGLOBIN 11.3 G/DL (11.5-16.0); LYMPHOCYTES # (AUTO) 1.4 X 10^3 (1.0-4.0); LYMPHOCYTES % (AUTO) 15 % (12-44); MEAN CORPUSCULAR HEMOGLOBIN 25 PG (25-34); MEAN CORPUSCULAR HGB CONC 34 G/DL (32-36); MEAN CORPUSCULAR VOLUME 74 FL (80-99); MEAN PLATELET VOLUME 9.9 FL (7.4-10.4); MONOCYTES # (AUTO) 0.5 X 10^3 (0.0-1.0); MONOCYTES % (AUTO) 6 % (0-12); NEUTROPHILS # (AUTO) 7.5 X 10^3 (1.8-7.8); NEUTROPHILS % (AUTO) 78 % (42-75); PLATELET COUNT 430 10^3/uL (130-400); RED BLOOD COUNT 4.48 10^6/uL (4.35-5.85); RED CELL DISTRIBUTION WIDTH 13.8 % (10.0-14.5); WHITE BLOOD COUNT 9.6 10^3/uL (4.3-11.0)
[2017-07-25 17:18] LABS: ALANINE AMINOTRANSFERASE 15 U/L (0-55); ALBUMIN 3.7 GM/DL (3.2-4.5); ALKALINE PHOSPHATASE 65 U/L (40-136); BUN/CREATININE RATIO 11; CALCIUM 8.4 MG/DL (8.5-10.1); CARBON DIOXIDE 21 MMOL/L (21-32); CHLORIDE 110 MMOL/L (98-107); CREATININE SERUM 0.71 MG/DL (0.60-1.30); GFR ESTIMATED > 60; GLUCOSE 239 MG/DL (70-105); POTASSIUM 3.7 MMOL/L (3.6-5.0); SALICYLATE < 5.0 MG/DL (5.0-20.0); SODIUM 139 MMOL/L (135-145); TOTAL PROTEIN 6.8 GM/DL (6.4-8.2)
[2017-07-25 17:21] LABS: ACETAMINOPHEN < 10 UG/ML (10-30)
[2017-07-25 17:28] LABS: BILIRUBIN,URINE NEGATIVE (NEGATIVE); CLARITY,URINE SLIGHTLY CLOUDY; COLOR,URINE YELLOW; GLUCOSE, URINE (UA) NEGATIVE (NEGATIVE); KETONES,URINE 1+ (NEGATIVE); LEUKOCYTE ESTERASE ,URINE 1+ (NEGATIVE); NITRITE,URINE NEGATIVE (NEGATIVE); PH,URINE 7 (5-9); PROTEIN,URINE 2+ (NEGATIVE); UROBILINOGEN,URINE 4 MG/DL (NORMAL)
[2017-07-25 17:41] LABS: BACTERIA,URINE LARGE /HPF; SQUAMOUS EPITHELIAL CELL,UR 25-50 /HPF; WBC,URINE 0-2 /HPF
[2017-07-25 17:42] LABS: AMPHETAMINE SCREEN, URINE NEGATIVE (NEGATIVE); BARBITURATE SCREEN URINE NEGATIVE (NEGATIVE); BENZODIAZEPINES SCREEN URINE NEGATIVE (NEGATIVE); CANNABINOID SCREEN, URINE NEGATIVE (NEGATIVE); COCAINE SCREEN URINE NEGATIVE (NEGATIVE); METHADONE STAT NEGATIVE (NEGATIVE); METHAMPHETAMINE SCREEN URINE S NEGATIVE (NEGATIVE); OPIATE SCREEN URINE NEGATIVE (NEGATIVE); OXYCODONE STAT NEGATIVE (NEGATIVE); PROPOXYPHENE STAT NEGATIVE (NEGATIVE); TRICYCLIC ANTIDEPRESSANTS SCRE NEGATIVE (NEGATIVE)
--- OUTSIDE RECORDS SUMMARY | 2017-07-25 17:51 | XMS REPORT | Continuity of Care Document ---
Author Author [employer] Organization [facility] Address Unknown Phone Unavailable Care Team Providers Care Turbine Assembler Name Role Phone [employer] Unavailable Unavailable Problems Medications Allergies, Adverse Reactions, Alerts Immunizations Results Vital Signs Encounters Location Location Details Encounter Type Encounter Number Reason For Visit Attending Provider ADM Date DC Date Status Source OUTPATIENT [id number] BG SAWANT 12/31/2015 12/31/2015 Active [facility] OUTPATIENT [id number] BG SAWANT 03/29/2017 Active [facility] OUTPATIENT [id number] BG SAWANT 04/19/2017 Active [facility] OUTPATIENT [id number] BG SAWANT 04/26/2017 Active [facility] OUTPATIENT [id number] BG SAWANT 07/26/2017 Active [facility] O Active [facility] Procedures Plan of Care Social History Assessment and Plan Family History Advance Directives Functional Status
--- OUTSIDE RECORDS SUMMARY | 2017-07-25 17:52 | XMS REPORT | Encounter Summary ---
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 Take 1/2 to 1 tab po tid prn muscle spasm. Last fill 05/25/2017 Last visit: 04/26/2017 Next visit. 07/26/2017 Provider notified. in this encounter Plan of Treatment Not on fileas of this encounter Visit Diagnoses Diagnosis Amplified musculoskeletal pain, diffuse Mylagia and myositis, unspecified in this encounter
--- OUTSIDE RECORDS SUMMARY | 2017-07-25 17:52 | XMS REPORT | Encounter Summary ---
Author Author [facility] Organization [facility] Address Unknown Phone Unavailable Care Team Providers Care Porcelain Mixer Name Role Phone PCP Unavailable Reason for Visit * Reason Comments Other RET FOR FIBROMYALGIA PAIN Encounter Details Date Type Department Care Team Description 04/26/2017 Office Visit [place] Anesthesia Sergio Haney MD Fibromyalgia syndrome Pain Clinic [address] [place] [address] [place], [place] [id number] Social History Tobacco Use Types Packs/Day Years [...] How to reach me: Please send a [facility] message to the Spine Center or leave a voicemail for my nurse Lucia at [phone]. Scheduling: Our scheduling phone number is [phone]. Appointment Reminders on your cell phone: Make sure we have your cell phone number, and Text [facility] to [phone]. How to get a medication refill: Five business days before refill needed, please use the [employer]Star Refill request or contact your pharmacy directly to request medication refills. How to receive your test results: If you have signed up for [employer], you will receive your test results and messages from me this way. Otherwise, you will get a phone call or letter. If you are expecting results and have not heard from my office within 2 weeks of your testing, please send a [employer] message or call my office. Support for many chronic illnesses is available through [employer]: [email or web address] or [phone]. For questions on nights, weekends or holidays, call the button tufting machine operator at , and ask for the doctor certified addiction counselor for Anesthesia Pain Management. 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 She talked quite a bit about how [...]
--- OUTSIDE RECORDS SUMMARY | 2017-07-25 17:52 | XMS REPORT | Encounter Summary ---
Author Author [facility] Organization [facility] Address Unknown Phone Unavailable Care Team Providers Care Senior Net Architect Name Role Phone PCP Unavailable Reason for Visit * Reason Comments Medication Refill Encounter Details Date Type Department Care Team Description 07/20/2017 Refill [facility] Anesthesia Lucia Arias RN Fibromyalgia syndrome Pain Clinic [address] [place] [address] [facility] [place], [place] [id number] Social History Tobacco Use Types Packs/Day Years [...] Lucia Arias RN - 07/20/2017 3:20 PM DIRECTOR REHABILITATION PROGRAM Refill request for Cymbalta 60 mg 2 caps po daily Last office visit 04/26/2017. Follow up appointment 07/26/2017. Refill per protocol. in this encounter Plan of Treatment Not on fileas of this encounter Visit Diagnoses Diagnosis Fibromyalgia syndrome Mylagia and myositis, unspecified in this encounter
--- OUTSIDE RECORDS SUMMARY | 2017-07-25 17:52 | XMS REPORT | Clinical Summary ---
Author Author [facility] Organization [facility] Address Unknown Phone Unavailable Care Team Providers Care Order Desk Clerk Name Role Phone PCP Unavailable Source Comments Some departments are not documenting in the electronic medical record. If you do not see the information that you expected, contact Release of Information in the Health Information Management department at [phone] for further assistance in locating additional records.[facility] Allergies Active Allergy Reactions Severity Noted Date [...] Care Team Description 07/20/2017 Refill Anesthesia Pain Lucia Arias RN Fibromyalgia syndrome 06/20/2017 Refill Anesthesia [...] 36.7 C (98 F) 09/14/2016 10:13 AM SENIOR RESERVATIONS AGENT Respiratory Rate 20 04/26/2017 9:21 AM CDT [...]
--- OUTSIDE RECORDS SUMMARY | 2017-07-25 17:59 | XMS REPORT | Continuity of Care Document ---
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 INCIDENTAL 05/10/2011 [facility], [place] V22.2 INCIDENTAL 05/10/2011 [facility], [place] V22.2 INCIDENTAL 05/10/2011 [facility] [employer] [facility] V22.2 INCIDENTAL 05/10/2011 [facility] [facility], YUSRA L V22.2 INCIDENTAL 05/10/2011 [facility] [facility], YUSRA L V22.2 INCIDENTAL 05/10/2011 [facility] [facility], YUSRA L V22.2 INCIDENTAL 05/10/2011 [facility] [employer] [facility], YUSRA L V22.2 INCIDENTAL 05/10/2011 [facility], [place] V22.2 INCIDENTAL 05/10/2011 [facility], [place] V22.2 INCIDENTAL 06/08/2011 296.32 MO [...] D 296.32 MO DEPRESSIVE RECURRENT MODERATE 06/08/2011 [facility], [place] R 296.32 MO DEPRESSIVE RECURRENT MODERATE 06/08/2011 [facility], [place] R 296.32 MO DEPRESSIVE RECURRENT MODERATE 06/08/2011 [facility], [place] R 296.32 MO DEPRESSIVE RECURRENT MODERATE 06/08/2011 [facility], [place] R 296.32 MO DEPRESSIVE RECURRENT MODERATE 06/08/2011 [facility], [place] R 296.32 MO DEPRESSIVE RECURRENT MODERATE 06/08/2011 [facility]IA APRNIDI A 296.32 MO DEPRESSIVE RECURRENT MODERATE 06/08/2011 [facility], [place] R 296.32 MO DEPRESSIVE RECURRENT MODERATE 06/08/2011 KATERINE LOPEZ APRN 296.32 MO DEPRESSIVE RECURRENT MODERATE 06/08/2011 [facility], [place] R 296.32 MO DEPRESSIVE RECURRENT MODERATE 06/08/2011 [facility], [place] R 296.32 MO DEPRESSIVE RECURRENT MODERATE 06/08/2011 [facility], [place] R 296.32 MO DEPRESSIVE RECURRENT MODERATE 06/08/2011 KATERINE LOPEZ APRN 296.32 MO DEPRESSIVE RECURRENT MODERATE 06/08/2011 KATERINE LOPEZ APRN 296.32 MO DEPRESSIVE RECURRENT MODERATE 06/08/2011 KATERINE LOPEZ APRN 296.32 MO DEPRESSIVE RECURRENT MODERATE 06/08/2011 [facility] [place] 296.32 MO DEPRESSIVE RECURRENT MODERATE 06/08/2011 [facility] VALDIVIA APRNIDI A 296.32 MO DEPRESSIVE RECURRENT MODERATE 06/08/2011 [facility] [place] 296.32 MO DEPRESSIVE RECURRENT MODERATE 06/08/2011 [facility], [place] R 296.32 MO DEPRESSIVE RECURRENT MODERATE 06/08/2011 [facility], [place] R 296.32 MO DEPRESSIVE RECURRENT MODERATE 06/08/2011 [facility], [place] R 296.32 MO DEPRESSIVE RECURRENT MODERATE 06/08/2011 [employer], [place] A 296.32 MO DEPRESSIVE RECURRENT MODERATE 06/08/2011 [facility] [employer] [facility], YUSRA L 296.32 MO DEPRESSIVE RECURRENT MODERATE 06/08/2011 [facility] [facility], YUSRA L 296.32 MO DEPRESSIVE RECURRENT MODERATE 06/08/2011 [facility] [employer] [facility], YUSRA L 296.32 MO DEPRESSIVE RECURRENT MODERATE 06/08/2011 [facility] [employer] [facility], YUSRA L 296.32 MO DEPRESSIVE RECURRENT MODERATE 06/08/2011 [facility], [place] R 296.32 MO DEPRESSIVE RECURRENT MODERATE 06/08/2011 [facility], [place] R 296.32 MO DEPRESSIVE RECURRENT MODERATE [...] KATERINE LOPEZ APRN 346.90 HEADACHE, MIGRAINE 11/16/2011 [facility], [place] R 307.81 HEADACHE, TENSION 11/16/2011 [facility], [place] R 346.90 HEADACHE, MIGRAINE 11/16/2011 [facility], [place] R 307.81 HEADACHE, TENSION 11/16/2011 [facility], [place] R 346.90 HEADACHE, MIGRAINE 11/16/2011 [facility], [place] R 307.81 HEADACHE, TENSION 11/16/2011 [facility], [place] R 346.90 HEADACHE, MIGRAINE 11/16/2011 [facility], [place] R 307.81 HEADACHE, TENSION 11/16/2011 [facility], [place] R 346.90 HEADACHE, MIGRAINE 11/16/2011 [facility], [place] R 307.81 HEADACHE, TENSION 11/16/2011 [facility], [place] R 346.90 HEADACHE, MIGRAINE 11/16/2011 [employer] [facility], [place] A 307.81 HEADACHE, TENSION 11/16/2011 [employer] [facility], [place] A 346.90 HEADACHE, MIGRAINE 11/16/2011 [...] [place] R 346.90 HEADACHE, MIGRAINE 11/16/2011 [employer] [facility], [place] A 307.81 HEADACHE, TENSION 11/16/2011 [employer] [facility], [place] A 346.90 HEADACHE, MIGRAINE 11/16/2011 [...] [place] R 346.90 HEADACHE, MIGRAINE 11/16/2011 [employer] [facility], [place] A 307.81 HEADACHE, TENSION 11/16/2011 [employer] [facility], [place] A 346.90 HEADACHE, MIGRAINE 11/16/2011 [facility] [facility], YUSRA L 307.81 HEADACHE, TENSION 11/16/2011 [facility] [employer] [facility], YUSRA L 346.90 HEADACHE, MIGRAINE 11/16/2011 [facility] [facility], YUSRA L 307.81 HEADACHE, TENSION 11/16/2011 [facility] [facility], YUSRA L 346.90 HEADACHE, MIGRAINE 11/16/2011 [facility] [employer] [facility], YUSRA L 307.81 HEADACHE, TENSION 11/16/2011 [facility] [facility], YUSRA L 346.90 HEADACHE, MIGRAINE 11/16/2011 [facility] [facility], YUSRA L 307.81 HEADACHE, TENSION 11/16/2011 [facility] [facility], YUSRA L 346.90 HEADACHE, MIGRAINE 11/16/2011 [...] DEPRESSIVE RECURRENT SEVERE W/O PSYCHOTIC BEHAVIOR 11/23/2011 [facility], [place] R 296.33 MO DEPRESSIVE RECURRENT SEVERE W/O PSYCHOTIC BEHAVIOR 11/23/2011 [facility], [place] R 296.33 MO DEPRESSIVE RECURRENT SEVERE W/O PSYCHOTIC BEHAVIOR 11/23/2011 [facility], [place] R 296.33 MO DEPRESSIVE RECURRENT SEVERE W/O PSYCHOTIC BEHAVIOR 11/23/2011 [facility], [place] R 296.33 MO DEPRESSIVE RECURRENT SEVERE W/O PSYCHOTIC BEHAVIOR 11/23/2011 [facility], [place] R 296.33 MO DEPRESSIVE RECURRENT SEVERE W/O PSYCHOTIC BEHAVIOR 11/23/2011 [place] APRN 296.33 MO DEPRESSIVE RECURRENT SEVERE W/O PSYCHOTIC BEHAVIOR 11/23/2011 [facility], [place] R 296.33 MO DEPRESSIVE RECURRENT SEVERE W/O PSYCHOTIC BEHAVIOR 11/23/2011 KATERINE LOPEZ APRN 296.33 MO DEPRESSIVE RECURRENT SEVERE W/O PSYCHOTIC BEHAVIOR 11/23/2011 [facility], [place] R 296.33 MO DEPRESSIVE RECURRENT SEVERE W/O PSYCHOTIC BEHAVIOR 11/23/2011 [facility], [place] R 296.33 MO DEPRESSIVE RECURRENT SEVERE W/O PSYCHOTIC BEHAVIOR 11/23/2011 [facility], [place] R 296.33 MO DEPRESSIVE RECURRENT SEVERE W/O PSYCHOTIC BEHAVIOR 11/23/2011 KATERINE LOPEZ APRN 296.33 MO DEPRESSIVE RECURRENT SEVERE W/O PSYCHOTIC BEHAVIOR 11/23/2011 KATERINE LOPEZ APRN 296.33 MO DEPRESSIVE RECURRENT SEVERE W/O PSYCHOTIC BEHAVIOR 11/23/2011 KATERINE LOPEZ APRN 296.33 MO DEPRESSIVE RECURRENT SEVERE W/O PSYCHOTIC BEHAVIOR 11/23/2011 [facility], [place] R 296.33 MO DEPRESSIVE RECURRENT SEVERE W/O PSYCHOTIC BEHAVIOR 11/23/2011 [employer], [place] A 296.33 MO DEPRESSIVE RECURRENT SEVERE W/O PSYCHOTIC BEHAVIOR 11/23/2011 [facility], [place] R 296.33 MO DEPRESSIVE RECURRENT SEVERE W/O PSYCHOTIC BEHAVIOR 11/23/2011 [facility], [place] R 296.33 MO DEPRESSIVE RECURRENT SEVERE W/O PSYCHOTIC BEHAVIOR 11/23/2011 [facility], [place] 296.33 MO DEPRESSIVE RECURRENT SEVERE W/O PSYCHOTIC BEHAVIOR 11/23/2011 [facility], [place] 296.33 MO DEPRESSIVE RECURRENT SEVERE W/O PSYCHOTIC BEHAVIOR 11/23/2011 [employer], [place] A 296.33 MO DEPRESSIVE RECURRENT SEVERE W/O PSYCHOTIC BEHAVIOR 11/23/2011 [facility], YUSRA L 296.33 MO DEPRESSIVE RECURRENT SEVERE W/O PSYCHOTIC BEHAVIOR 11/23/2011 [facility], YUSRA L 296.33 MO DEPRESSIVE RECURRENT SEVERE W/O PSYCHOTIC BEHAVIOR 11/23/2011 [facility], YUSRA L 296.33 MO DEPRESSIVE RECURRENT SEVERE W/O PSYCHOTIC BEHAVIOR 11/23/2011 [employer], YUSRA L 296.33 MO DEPRESSIVE RECURRENT SEVERE W/O PSYCHOTIC BEHAVIOR 11/23/2011 [facility], [place] 296.33 MO DEPRESSIVE RECURRENT SEVERE W/O PSYCHOTIC BEHAVIOR 11/23/2011 [facility], [place] 296.33 MO DEPRESSIVE RECURRENT SEVERE [...] LOPEZ APRN 300.02 AN GEN ANXIETY 01/24/2012 [facility], [place] 300.02 AN GEN ANXIETY 01/24/2012 [facility], [place] 300.02 AN GEN ANXIETY 01/24/2012 [facility], [place] 300.02 AN GEN ANXIETY 01/24/2012 [facility], [place] 300.02 AN GEN ANXIETY 01/24/2012 [facility], [place] 300.02 AN GEN ANXIETY 01/24/2012 [employer] A 300.02 AN GEN ANXIETY 01/24/2012 [facility], [place] 300.02 AN GEN ANXIETY 01/24/2012 KATERINE LOPEZ APRN 300.02 AN GEN ANXIETY 01/24/2012 [facility], [place] 300.02 AN GEN ANXIETY 01/24/2012 [facility], [place] 300.02 AN GEN ANXIETY 01/24/2012 [facility], [place] 300.02 AN GEN ANXIETY 01/24/2012 KATERINE LOPEZ APRN 300.02 AN GEN ANXIETY 01/24/2012 KATERINE LOPEZ APRN 300.02 AN GEN ANXIETY 01/24/2012 KATERINE LOPEZ APRN 300.02 AN GEN ANXIETY 01/24/2012 [facility], [place] 300.02 AN GEN ANXIETY 01/24/2012 [facility] VALDIVIA APRNIDI A 300.02 AN GEN ANXIETY 01/24/2012 [facility], [place] 300.02 AN GEN ANXIETY 01/24/2012 [facility], [place] 300.02 AN GEN ANXIETY 01/24/2012 [facility], [place] 300.02 AN GEN ANXIETY 01/24/2012 [facility], [place] 300.02 AN GEN ANXIETY 01/24/2012 [employer], [place] 300.02 AN GEN ANXIETY 01/24/2012 [facility] [employer] [facility], YUSRA L 300.02 AN GEN ANXIETY 01/24/2012 [facility] [employer] [facility], YUSRA L 300.02 AN GEN ANXIETY 01/24/2012 [facility] [employer] [facility], YUSRA L 300.02 AN GEN ANXIETY 01/24/2012 [facility] [employer] [facility], YUSRA L 300.02 AN GEN ANXIETY 01/24/2012 [facility], [place] 300.02 AN GEN ANXIETY 01/24/2012 [facility], [place] 300.02 AN GEN ANXIETY 12/21/2012 [...] V76.2 CERVICAL CANCER SCREENING (PAP SMEAR) [facility]/21[facility]2012 [facility]01 TRICHOMONAL VULVOVAGINITIS 12/21/2012 [facility] V[facility].81 HPV SCREENING 12/21/2012 [facility] V[facility].10 BREAST CANCER SCREENING 12/21/2012 [facility] V[facility].2 CERVICAL CANCER SCREENING (PAP SMEAR) 12/21/2012 [facility] 131.01 TRICHOMONAL VULVOVAGINITIS 12/21/2012 [facility], [place] V73.81 HPV SCREENING 12/21/2012 [facility], [place] V76.10 BREAST CANCER SCREENING 12/21/2012 [facility], [place] V76.2 CERVICAL CANCER SCREENING (PAP SMEAR) 12/21/2012 [facility], [place] 131.01 TRICHOMONAL VULVOVAGINITIS 12/21/2012 [facility], [place] V73.81 HPV SCREENING 12/21/2012 [facility], [place] V76.10 BREAST CANCER SCREENING 12/21/2012 [facility], [place] V76.2 CERVICAL CANCER SCREENING (PAP SMEAR) 12/21/2012 [facility], [place] 131.01 TRICHOMONAL VULVOVAGINITIS 12/21/2012 [facility], [place] V73.81 HPV SCREENING 12/21/2012 [facility], [place] V76.10 BREAST CANCER SCREENING 12/21/2012 [facility], [place] V76.2 CERVICAL CANCER SCREENING (PAP SMEAR) 12/21/2012 [facility], [place] 131.01 TRICHOMONAL VULVOVAGINITIS 12/21/2012 [facility], [place] V73.81 HPV SCREENING 12/21/2012 [facility], [place] V76.10 BREAST CANCER SCREENING 12/21/2012 [facility], [place] V76.2 CERVICAL CANCER SCREENING (PAP SMEAR) 12/21/2012 [place], [place] A 131.01 TRICHOMONAL VULVOVAGINITIS 12/21/2012 [place] [place], [place] A V73.81 HPV SCREENING 12/21/2012 [employer], [place] A V76.10 BREAST CANCER SCREENING 12/21/2012 [employer], [place] A V76.2 CERVICAL CANCER SCREENING (PAP SMEAR) 12/21/2012 [facility], [place] 131.01 TRICHOMONAL VULVOVAGINITIS 12/21/2012 [facility], [place] V73.81 HPV SCREENING 12/21/2012 [facility], [place] V76.10 BREAST CANCER SCREENING 12/21/2012 [facility], [place] V76.2 CERVICAL CANCER SCREENING (PAP SMEAR) 12/21/2012 KATERINE LOPEZ APRN 131.01 TRICHOMONAL VULVOVAGINITIS 12/21/2012 KATERINE LOPEZ APRN V73.81 HPV SCREENING 12/21/2012 KATERINE LOPEZ APRN V76.10 BREAST CANCER SCREENING 12/21/2012 KATERINE LOPEZ APRN V76.2 CERVICAL CANCER SCREENING (PAP SMEAR) 12/21/2012 [facility], [place] 131.01 TRICHOMONAL VULVOVAGINITIS 12/21/2012 [facility], [place] V73.81 HPV SCREENING 12/21/2012 [facility], [place] V76.10 BREAST CANCER SCREENING 12/21/2012 [facility], [place] V76.2 CERVICAL CANCER SCREENING (PAP SMEAR) 12/21/2012 [facility], [place] 131.01 TRICHOMONAL VULVOVAGINITIS 12/21/2012 [facility], [place] V73.81 HPV SCREENING 12/21/2012 [facility], [place] V76.10 BREAST CANCER SCREENING 12/21/2012 [facility], [place] V76.2 CERVICAL CANCER SCREENING (PAP SMEAR) 12/21/2012 [facility], [place] 131.01 TRICHOMONAL VULVOVAGINITIS 12/21/2012 [facility], [place] V73.81 HPV SCREENING 12/21/2012 [facility], [place] V76.10 BREAST CANCER SCREENING 12/21/2012 [facility], [place] V76.2 CERVICAL CANCER SCREENING (PAP [...] V76.2 CERVICAL CANCER SCREENING (PAP SMEAR) 12/21/2012 [facility], [place] 131.01 TRICHOMONAL VULVOVAGINITIS 12/21/2012 [facility], [place] V73.81 HPV SCREENING 12/21/2012 [facility], [place] V76.10 BREAST CANCER SCREENING 12/21/2012 [facility], [place] V76.2 CERVICAL CANCER SCREENING (PAP SMEAR) 12/21/2012 [place] [place], [place] A 131.01 TRICHOMONAL VULVOVAGINITIS 12/21/2012 [facility] [place], [place] A V73.81 HPV SCREENING 12/21/2012 [facility] [place], [place] A V76.10 BREAST CANCER SCREENING 12/21/2012 [place] [place], [place] A V76.2 CERVICAL CANCER SCREENING (PAP SMEAR) 12/21/2012 [facility], [place] 131.01 TRICHOMONAL VULVOVAGINITIS 12/21/2012 [facility], [place] V73.81 HPV SCREENING 12/21/2012 [facility], [place] V76.10 BREAST CANCER SCREENING 12/21/2012 [facility], [place] V76.2 CERVICAL CANCER SCREENING (PAP SMEAR) 12/21/2012 [facility], [place] 131.01 TRICHOMONAL VULVOVAGINITIS 12/21/2012 [facility], [place] V73.81 HPV SCREENING 12/21/2012 [facility], [place] V76.10 BREAST CANCER SCREENING 12/21/2012 [facility], [place] V76.2 CERVICAL CANCER SCREENING (PAP SMEAR) 12/21/2012 [facility], [place] 131.01 TRICHOMONAL VULVOVAGINITIS 12/21/2012 [facility], [place] V73.81 HPV SCREENING 12/21/2012 [facility], [place] V76.10 BREAST CANCER SCREENING 12/21/2012 [facility], [place] V76.2 CERVICAL CANCER SCREENING (PAP SMEAR) 12/21/2012 [facility], [place] 131.01 TRICHOMONAL VULVOVAGINITIS 12/21/2012 [facility], [place] V73.81 HPV SCREENING 12/21/2012 [facility], [place] V76.10 BREAST CANCER SCREENING 12/21/2012 [facility], [place] V76.2 CERVICAL CANCER SCREENING (PAP SMEAR) 12/21/2012 [employer] [employer] [facility], [place] A 131.01 TRICHOMONAL VULVOVAGINITIS 12/21/2012 [employer] [facility], [place] A V73.81 HPV SCREENING 12/21/2012 [employer] [facility], [place] A V76.10 BREAST CANCER SCREENING 12/21/2012 [employer] [facility], [place] A V76.2 CERVICAL CANCER SCREENING (PAP SMEAR) 12/21/2012 [facility] [employer]Y MECHANIC, YUSRA L 131.01 TRICHOMONAL VULVOVAGINITIS 12/21/2012 [employer] MAKE READY MECHANIC, YUSRA L V73.81 HPV SCREENING 12/21/2012 [employer] MAKE READY MECHANIC, YUSRA L V76.10 BREAST CANCER SCREENING 12/21/2012 [facility] MAKE READY MECHANIC, YUSRA L V76.2 CERVICAL CANCER SCREENING (PAP SMEAR) 12/21/2012 [place] MAKE READY MECHANIC, YUSRA L 131.01 TRICHOMONAL VULVOVAGINITIS 12/21/2012 [facility] MAKE READY MECHANIC, YUSRA L V73.81 HPV SCREENING 12/21/2012 [employer] MAKE READY MECHANIC, YUSRA L V76.10 BREAST CANCER SCREENING 12/21/2012 [employer] MAKE READY MECHANIC, YUSRA L V76.2 CERVICAL CANCER SCREENING (PAP SMEAR) 12/21/2012 [facility] MAKE READY MECHANIC, YUSRA L 131.01 TRICHOMONAL VULVOVAGINITIS 12/21/2012 [facility] MAKE READY MECHANIC, YUSRA L V73.81 HPV SCREENING 12/21/2012 MAD[facility] MAKE READY MECHANIC, YUSRA L V76.10 BREAST CANCER SCREENING 12/21/2012 [facility] MAKE READY MECHANIC, YUSRA L V76.2 CERVICAL CANCER SCREENING (PAP SMEAR) 12/21/2012 [place] [employer] READ[employer]CH[employer], YUSRA L 131.01 TRICHOMONAL VULVOVAGINITIS 12/21/2012 OSIRIS[place] MAKE READY MECHANIC, YUSRA L V73.81 HPV SCREENING 12/21/2012 [place] MAKE READY MECHANIC, YUSRA L V76.10 BREAST CANCER SCREENING 12/21/2012 [place] MAKE READY MECHANIC, YUSRA L V76.2 CERVICAL CANCER SCREENING (PAP SMEAR) 12/21/2012 [facility], [place] R 131.01 TRICHOMONAL VULVOVAGINITIS 12/21/2012 [facility], [place] R V73.81 HPV SCREENING 12/21/2012 [facility], [place] R V76.10 BREAST CANCER SCREENING 12/21/2012 [facility], [place] R V76.2 CERVICAL CANCER SCREENING (PAP SMEAR) 12/21/2012 [facility], [place] R 131.01 TRICHOMONAL VULVOVAGINITIS 12/21/2012 [facility], [place] R V73.81 HPV SCREENING 12/21/2012 [facility], [place] R V76.10 BREAST CANCER SCREENING 12/21/2012 [facility], [place] R V76.2 CERVICAL CANCER SCREENING (PAP SMEAR) 02/15/2013 692.9 CONTACT DERMATITIS AND OTHER ECZEMA UNSPECIFIED CAUSE 02/15/2013 692.9 CONTACT DERMATITIS AND OTHER ECZEMA UNSPECIFIED CAUSE 02/15/2013 692.9 CONTACT DERMATITIS AND OTHER ECZEMA UNSPECIFIED CAUSE 02/15/2013 692.9 CONTACT DERMATITIS AND OTHER ECZEMA UNSPECIFIED CAUSE 02/15/2013 KATERINE LOPEZ APRN 692.9 CONTACT DERMATITIS AND OTHER ECZEMA UNSPECIFIED CAUSE 02/15/2013 [facility], MATTHIEU R 692.9 CONTACT DERMATITIS AND OTHER ECZEMA UNSPECIFIED CAUSE 02/15/2013 [facility], MATTHIEU R 692.9 CONTACT DERMATITIS AND OTHER ECZEMA UNSPECIFIED CAUSE 02/15/2013 [facility], MATTHIEU R 692.9 CONTACT DERMATITIS AND OTHER ECZEMA UNSPECIFIED CAUSE 02/15/2013 [facility], MATTHIEU R 692.9 CONTACT DERMATITIS AND OTHER ECZEMA UNSPECIFIED CAUSE 02/15/2013 [facility], MATTHIEU R 692.9 CONTACT DERMATITIS AND OTHER ECZEMA UNSPECIFIED CAUSE 02/15/2013 [place] VALDIVIA APRN 692.9 CONTACT DERMATITIS AND OTHER ECZEMA UNSPECIFIED CAUSE 02/15/2013 [facility], MATTHIEU R 692.9 CONTACT DERMATITIS AND OTHER ECZEMA UNSPECIFIED CAUSE 02/15/2013 [place] MAKE READY MECHANICKARLOSTH D 692.9 CONTACT DERMATITIS AND OTHER ECZEMA UNSPECIFIED CAUSE 02/15/2013 [facility], MATTHIEU R 692.9 CONTACT DERMATITIS AND OTHER ECZEMA UNSPECIFIED CAUSE 02/15/2013 [facility], MATTHIEU R 692.9 CONTACT DERMATITIS AND OTHER ECZEMA UNSPECIFIED CAUSE 02/15/2013 [facility], MATTHIEU R 692.9 CONTACT DERMATITIS AND OTHER ECZEMA UNSPECIFIED CAUSE 02/15/2013 [employer], KATERINE D 692.9 CONTACT DERMATITIS AND OTHER ECZEMA UNSPECIFIED CAUSE 02/15/2013 [employer] [employer] READ[employer]CH[employer]IC, KATERINE D 692.9 CONTACT DERMATITIS AND OTHER ECZEMA UNSPECIFIED CAUSE 02/15/2013 [employer] [employer] READ[employer]CH[employer], KATERINE D 692.9 CONTACT DERMATITIS AND OTHER ECZEMA UNSPECIFIED CAUSE 02/15/2013 [facility], MATTHIEU R 692.9 CONTACT DERMATITIS AND OTHER ECZEMA UNSPECIFIED CAUSE 02/15/2013 SKIP 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 MECHANIC, [place] A 692.9 CONTACT DERMATITIS AND OTHER ECZEMA UNSPECIFIED CAUSE 02/15/2013 [facility], MATTHIEU R 692.9 CONTACT DERMATITIS AND OTHER ECZEMA UNSPECIFIED CAUSE 02/15/2013 [facility], MATTHIEU R 692.9 CONTACT DERMATITIS AND OTHER ECZEMA UNSPECIFIED CAUSE 02/15/2013 [facility], MATTHIEU R 692.9 CONTACT DERMATITIS AND OTHER ECZEMA UNSPECIFIED CAUSE 02/15/2013 [facility], MATTHIEU R 692.9 CONTACT DERMATITIS AND OTHER ECZEMA UNSPECIFIED CAUSE 02/15/2013 SKIP MAKE READY MECHANIC, [place] A 692.9 CONTACT DERMATITIS AND OTHER ECZEMA UNSPECIFIED CAUSE 02/15/2013 MADL MAKE READY MECHANIC, YUSRA L 692.9 CONTACT DERMATITIS AND OTHER ECZEMA UNSPECIFIED CAUSE 02/15/2013 MADL MAKE READY MECHANIC, YUSRA L 692.9 CONTACT DERMATITIS AND OTHER ECZEMA UNSPECIFIED CAUSE 02/15/2013 MADL MAKE READY MECHANIC, YUSRA L 692.9 CONTACT DERMATITIS AND OTHER ECZEMA UNSPECIFIED CAUSE 02/15/2013 MADL MAKE READY MECHANIC, YUSRA L 692.9 CONTACT DERMATITIS AND OTHER ECZEMA UNSPECIFIED CAUSE 02/15/2013 [facility], MATTHIEU R 692.9 CONTACT DERMATITIS AND OTHER ECZEMA UNSPECIFIED CAUSE 02/15/2013 [facility], MATTHIEU R 692.9 CONTACT DERMATITIS AND OTHER ECZEMA UNSPECIFIED CAUSE 07/30/2013 SKIP MAKE READY MECHANIC, [place] A V25.01 CONTRACEPTION - ORAL CONTRACEPTION 07/30/2013 [facility], [place] R V25.01 CONTRACEPTION - ORAL CONTRACEPTION 07/30/2013 KATERINE LOPEZ APRN V25.01 CONTRACEPTION - ORAL CONTRACEPTION 07/30/2013 [facility], [place] R V25.01 CONTRACEPTION - ORAL CONTRACEPTION 07/30/2013 [facility], [place] R V25.01 CONTRACEPTION - ORAL CONTRACEPTION 07/30/2013 [facility], [place] R V25.01 CONTRACEPTION - ORAL CONTRACEPTION 07/30/2013 KATERINE LOPEZ APRN V25.01 CONTRACEPTION - ORAL CONTRACEPTION 07/30/2013 KATERINE LOEPZ APRN V25.01 CONTRACEPTION - ORAL CONTRACEPTION 07/30/2013 KATERINE LOPEZ APRN V25.01 CONTRACEPTION - ORAL CONTRACEPTION 07/30/2013 [facility], [place] R V25.01 CONTRACEPTION - ORAL CONTRACEPTION 07/30/2013 [place]IP [place], [place] A V25.01 CONTRACEPTION - ORAL CONTRACEPTION 07/30/2013 [facility], [place] R V25.01 CONTRACEPTION - ORAL CONTRACEPTION 07/30/2013 [facility], [place] R V25.01 CONTRACEPTION - ORAL CONTRACEPTION 07/30/2013 [facility], [place] R V25.01 CONTRACEPTION - ORAL CONTRACEPTION 07/30/2013 [facility], [place] R V25.01 CONTRACEPTION - ORAL CONTRACEPTION 07/30/2013 [place], [place] A V25.01 CONTRACEPTION - ORAL CONTRACEPTION 07/30/2013 OSIRIS[facility] MAKE READY MECHANIC, YUSRA L V25.01 CONTRACEPTION - ORAL CONTRACEPTION 07/30/2013 MADL MAKE READY MECHANIC, YUSRA L V25.01 CONTRACEPTION - ORAL CONTRACEPTION 07/30/2013 MADL MAKE READY MECHANIC, YUSRA L V25.01 CONTRACEPTION - ORAL CONTRACEPTION 07/30/2013 MADL MAKE READY MECHANIC, YUSRA L V25.01 CONTRACEPTION - ORAL CONTRACEPTION 07/30/2013 [facility], [place] R V25.01 CONTRACEPTION - ORAL CONTRACEPTION 07/30/2013 [facility], [place] R V25.01 CONTRACEPTION - ORAL CONTRACEPTION 11/27/2013 SKIP MAKE READ[employer] MECHANIC, [place] A V74.5 STD SCREEN 11/27/2013 [facility], [place] R V74.5 STD SCREEN 11/27/2013 [facility], [place] R V74.5 STD SCREEN 11/27/2013 [facility], [place] R V74.5 STD SCREEN 11/27/2013 [facility], [place] R V74.5 STD SCREEN 11/27/2013 SKIP MAKE READ[employer] MECHANIC, [place] A V74.5 STD SCREEN 11/27/2013 MADL MAKE READY MECHANIC, YUSRA L V74.5 STD SCREEN 11/27/2013 MADL MAKE READY MECHANIC, YUSRA L V74.5 STD SCREEN 11/27/2013 MADL MAKE READY MECHANIC, YUSRA L V74.5 STD SCREEN 11/27/2013 MADL MAKE READY MECHANIC, YUSRA L V74.5 STD SCREEN 11/27/2013 [facility], [place] R V74.5 STD SCREEN 11/27/2013 [facility], [place] R V74.5 STD SCREEN 12/11/2013 [facility], [place] R 296.35 MO DEPRESSIVE RECURRENT IN PART OR UNSPECIFIED REMISSION 12/11/2013 [facility], [place] R 296.35 MO DEPRESSIVE RECURRENT IN PART OR UNSPECIFIED REMISSION 12/11/2013 [facility], [place] R 296.35 MO DEPRESSIVE RECURRENT IN PART OR UNSPECIFIED REMISSION 12/11/2013 [facility], [place] R 296.35 MO DEPRESSIVE RECURRENT IN PART OR UNSPECIFIED REMISSION 12/11/2013 SKIP MAKE READY MECHANIC, [place] A 296.35 MO DEPRESSIVE RECURRENT IN PART OR UNSPECIFIED REMISSION 12/11/2013 MADL MAKE READY MECHANIC, YUSRA L 296.35 MO DEPRESSIVE RECURRENT IN PART OR UNSPECIFIED REMISSION 12/11/2013 MADL MAKE READY MECHANIC, YUSRA L 296.35 MO DEPRESSIVE RECURRENT IN PART OR UNSPECIFIED REMISSION 12/11/2013 MADL MAKE READY MECHANIC, YUSRA L 296.35 MO DEPRESSIVE RECURRENT IN PART OR UNSPECIFIED REMISSION 12/11/2013 MADL MAKE READY MECHANIC, YUSRA L 296.35 MO DEPRESSIVE RECURRENT IN PART OR UNSPECIFIED REMISSION 12/11/2013 [facility], [place] R 296.35 MO DEPRESSIVE RECURRENT IN PART OR UNSPECIFIED REMISSION 12/11/2013 [facility], [place] R 296.35 MO DEPRESSIVE RECURRENT IN PART OR UNSPECIFIED REMISSION 02/21/2014 [facility], [place] R 296.31 MO DEPRESSIVE RECURRENT MILD 02/21/2014 [facility], [place] R 296.31 MO DEPRESSIVE RECURRENT MILD 02/21/2014 SKIP MAKE READY MECHANIC, [place] A 296.31 MO DEPRESSIVE RECURRENT MILD 02/21/2014 MADL MAKE READY MECHANIC, YUSRA L 296.31 MO DEPRESSIVE RECURRENT MILD 02/21/2014 MADL MAKE READY MECHANIC, YUSRA L 296.31 MO DEPRESSIVE RECURRENT MILD 02/21/2014 MADL MAKE READY MECHANIC, YUSRA L 296.31 MO DEPRESSIVE RECURRENT MILD 02/21/2014 MADL MAKE READY MECHANIC, YUSRA L 296.31 MO DEPRESSIVE RECURRENT MILD 02/21/2014 [facility], [place] R 296.31 MO DEPRESSIVE RECURRENT MILD 02/21/2014 [facility], [place] R 296.31 MO DEPRESSIVE RECURRENT MILD 08/09/2014 Ot V22.2 08/09/2014 BELEM LANGLEY, ALONDRA Frye Ot 246.9 DISORDER OF THYROID NOS 08/09/2014 BELEM LANGLEY, ALONDRA T Ot 458.0 ORTHOSTATIC HYPOTENSION 08/09/2014 ALONDRA PATRICIA MD T Ot 780.2 SYNCOPE AND COLLAPSE 08/09/2014 ALONDRA PATRICIA MD T Ot 780.79 OTH MALAISE FATIGUE 08/12/2014 MADL MAKE READY MECHANIC, YUSRA L 780.79 FATIGUE 08/12/2014 MADL MAKE READY MECHANIC, YUSRA L 780.79 FATIGUE 08/12/2014 MADL MAKE READY MECHANIC, YUSRA L 780.79 FATIGUE 08/12/2014 MADL MAKE READY MECHANIC, YUSRA L 780.79 FATIGUE 08/12/2014 [facility], [place] R 780.79 FATIGUE 08/12/2014 [facility], [place] R 780.79 FATIGUE 08/12/2014 ALONDRA PATRICIA MD T Ot 246.9 08/12/2014 ALONDRA PATRICIA MD T Ot 458.0 08/12/2014 ALONDRA PATRICIA MD T Ot 780.2 08/12/2014 ALONDRA PATRICIA MD T Ot 780.79 08/21/2014 MADL MAKE READY MECHANIC, YUSRA L 719.40 PAIN IN JOINT SITE UNSPECIFIED 08/21/2014 MADL MAKE READY MECHANIC, YUSRA L 729.1 MYALGIA AND MYOSITIS UNSPECIFIED 08/21/2014 MADL MAKE READY MECHANIC, YUSRA L 794.5 NONSPECIFIC ABNORMAL RESULTS OF FUNCTION STUDY OF THYROID 08/21/2014 MADL MAKE READY MECHANIC, YUSRA L 719.40 PAIN IN JOINT SITE UNSPECIFIED 08/21/2014 MADL MAKE READY MECHANIC, YUSRA L 729.1 MYALGIA AND MYOSITIS UNSPECIFIED 08/21/2014 MADL MAKE READY MECHANIC, YUSRA L 794.5 NONSPECIFIC ABNORMAL RESULTS OF FUNCTION STUDY OF THYROID 08/21/2014 MADL MAKE READY MECHANIC, YUSRA L 719.40 PAIN IN JOINT SITE UNSPECIFIED 08/21/2014 MADL MAKE READY MECHANIC, YUSRA L 729.1 MYALGIA AND MYOSITIS UNSPECIFIED 08/21/2014 MADL MAKE READY MECHANIC, YUSRA L 794.5 NONSPECIFIC ABNORMAL RESULTS OF FUNCTION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
[2017-07-25] MEDS ORDERED: VITA400C21 PO (18:42)
[2017-07-25] MEDS ORDERED: MULT1TAB69 PO (18:42)
[2017-07-25] MEDS ORDERED: DULO60CA58 PO (18:42)
[2017-07-25] MEDS ORDERED: CLON1TAB3 PO (18:42)
[2017-07-25] MEDS ORDERED: CHOL100048 PO (18:42)
[2017-07-25] MEDS ORDERED: CATHETER FLUSH 10 ML SYR IV PRN (18:45)
[2017-07-25 20:00] VITALS: BP 88/36
[2017-07-25] MEDS: NS IV 1000 ML 1,000 ML IV SCH (20:40)
[2017-07-25 21:00] VITALS: BP 99/55
[2017-07-25 22:00] VITALS: BP 101/52
[2017-07-25 23:00] VITALS: BP 99/52
[2017-07-26] VITALS (11 sets, daily range): BP systolic 86–117; BP diastolic 53–85
[2017-07-26] MEDS: NS IV 1000 ML 1,000 ML IV SCH ×2 (04:42→10:45)
[2017-07-26 05:29] LABS: BASOPHILS # (AUTO) 0.1 10^3/uL (0.0-0.1); BASOPHILS % (AUTO) 1 % (0-10); EOSINOPHILS # (AUTO) 0.2 10^3/uL (0.0-0.3); EOSINOPHILS % (AUTO) 2 % (0-10); HEMATOCRIT 33 % (35-52); LYMPHOCYTES # (AUTO) 1.8 X 10^3 (1.0-4.0); LYMPHOCYTES % (AUTO) 22 % (12-44); MEAN CORPUSCULAR HEMOGLOBIN 25 PG (25-34); MEAN CORPUSCULAR HGB CONC 34 G/DL (32-36); MEAN CORPUSCULAR VOLUME 75 FL (80-99); MEAN PLATELET VOLUME 9.7 FL (7.4-10.4); MONOCYTES # (AUTO) 0.6 X 10^3 (0.0-1.0); MONOCYTES % (AUTO) 7 % (0-12); NEUTROPHILS # (AUTO) 5.5 X 10^3 (1.8-7.8); NEUTROPHILS % (AUTO) 68 % (42-75); PLATELET COUNT 360 10^3/uL (130-400); RED BLOOD COUNT 4.33 10^6/uL (4.35-5.85); RED CELL DISTRIBUTION WIDTH 13.8 % (10.0-14.5)
[2017-07-26 05:55] LABS: BUN/CREATININE RATIO 10; CALCIUM 8.3 MG/DL (8.5-10.1); CARBON DIOXIDE 19 MMOL/L (21-32); CHLORIDE 114 MMOL/L (98-107); CREATININE SERUM 0.61 MG/DL (0.60-1.30); GFR ESTIMATED > 60; GLUCOSE 82 MG/DL (70-105); MAGNESIUM 1.8 MG/DL (1.8-2.4); PHOSPHORUS 2.9 MG/DL (2.3-4.7); POTASSIUM 3.4 MMOL/L (3.6-5.0); SODIUM 141 MMOL/L (135-145)
[2017-07-26] MEDS ORDERED: KCL 20 MEQ TAB (K-DUR) PO ONE (06:15)
[2017-07-26] MEDS ORDERED: INFLUENZA TRIvalent 2017-2018 0.5 ML/45 MCG SYR IM ONE (07:15)
--- NOTE | 2017-07-26 15:17 | Discharge Instructions ---
Discharge [facility] Discharge Medications New, Converted or Re-Newed RX: Other Continued Medications: Cholecalciferol (Vitamin D3) (Vitamin D) 1,000 Unit Capsule 1000 UNIT PO DAILY, CAP Duloxetine HCl (Duloxetine HCl) 60 Mg Capsule.dr 120 MG PO DAILY TAKES 2 (60 MG) CAPSULES Multivitamin (Multivitamins) 1 Each Tablet 1 TAB PO DAILY, TAB Topiramate (Topiramate) 100 Mg Tablet 100 MG PO HS, TAB Vitamin E (Vitamin E) 400 Unit Capsule 400 UNIT PO DAILY, CAP Discontinued Medications: Clonazepam (Clonazepam) 1 Mg Tablet 1 MG PO BID Tizanidine HCl (Tizanidine HCl) 4 Mg Tablet 2-4 MG PO TID PRN for MUSCLE SPASMS, TAB TAKES 1/2 TO 1 OF A (4 MG) TABLET Patient Instructions Goal/Follow Up Appt: SEEMA GRAYSON 1:JULY 27 Patient Instructions: PLEASE TAKE YOUR MEDICATIONS PRESCRIBED. I RECOMMEND THAT YOU ARE WEANED OFF THE CLONAZEPAM AFTER THIS EVENT. THIS WILL BE DECIDED BY YOU AND YOUR PROVIDER. Return to The Hospital For: ANY THOUGHTS OF WANTING TO HARM YOURSELF OR OTHERS. Activity & Diet Discharge Diet: No Restrictions Activity as Tolerated: Yes Copy Copies To 1: ISABELLE MILAN APRN, MD Jul 26, 2017 3:17 pm
--- NOTE | 2017-07-26 15:18 | Short Stay Summary ---
History of Present Illness History of Present Illness Reason for visit/HPI 42yo woman who recently found out that her boyfriend was actually and was not going to leave his family for her. Pt very upset because he is prominently known in the community, and he is also the [employer] son where she attends islam. Patient states this largely began as an emotional affair and progressed to sexual affair. She has also given him the keys to her house and car. He kept telling her that he was going to leave his because they were unhappily . This never transpired. This came to a head, and her boyfriend, who is also her next door neighbor, is now gone, and no one knows where he is . She was told by the that he has bipolar disorder and was checked in to a [facility] in [place], but he checked himself out 24h later and has not reappeared to anyone. SHe is very distraught by all of this. SHe then took a few of her muscle relaxants due to her anxiety over all this, stating she did not want to face anyone, including her kids, about the great embarrassment she had caused. Date of Admission Jul 25, 2017 at 4:59 pm Date of Discharge July 26, 2017 Time Seen by Provider: 10:00 Attending Physician Elisha Rosen MD Admitting Physician [place] Consult Allergies and Home Medications Allergies Coded Allergies: Sulfa (Sulfonamide Antibiotics) (Verified Allergy, Unknown, 11/21/16) amoxicillin (Verified Allergy, Unknown, RASH, 07/26/16) Home Medications Cholecalciferol (Vitamin D3) 1,000 Unit Capsule, 1,000 UNIT PO DAILY, (Reported) Duloxetine HCl 60 Mg Capsule.dr, 120 MG PO DAILY, (Reported) TAKES 2 (60 MG) CAPSULES Multivitamin 1 Each Tablet, 1 TAB PO DAILY, (Reported) Topiramate 100 Mg Tablet, 100 MG PO HS, (Reported) Vitamin E 400 Unit Capsule, 400 UNIT PO DAILY, (Reported) Past [id number] Hx Patient Social History Alcohol Use: Denies Use Number of Drinks Today: AA Recreational Drug Use: No Smoking Status: Never a Smoker Physical Abuse Screen: No Sexual Abuse: No Recent Foreign Travel: No Contact w/other who traveled: No Recent Hopitalizations: No Recent Infectious Disease Expo: No Immunizations Up To Date Tetanus Booster (TDap): Unknown Date of Influenza Vaccine: Apr 25, 2016 Seasonal Allergies Seasonal Allergies: No Surgeries Yes (COLONOSCOPY, ENDOSCOPY) Hysterectomy Respiratory No Cardiovascular No Neurological No Headaches /Migraines Reproductive System Hx Reproductive Disorders: Yes (UTERINE FIBROIDS, AUB) 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 Genitourinary No Gastrointestinal No 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 Yes Fibromyalgia Endocrine History of Endocrine Disorders: No HEENT History of HEENT Disorders: No Loss of Vision: Bilateral Hearing Impairment: Denies Cancer No Psychosocial History of Psychiatric Problem: Yes (PANIC DISORDER) Behavioral Health Disorders: Anxiety, Suicide Attempts, Depression Integumentary History of Skin or Integumenta: No Blood Transfusions History of Blood Disorders: Yes (IRON DEFICIENCY ANEMIA) Family Medical History Family Hx: Alcoholism 19 FATHER Diabetes mellitus 19 FATHER FH: breast cancer 19 MOTHER Hypertension 19 FATHER Psychosocial problem 19 MOTHER Constitutional: see HPI All Other Systems Reviewed Negative Unless Noted: Yes Physical Exam Vital Signs Vital Sign - Last 12Hours 07/25/17 07/25/17 16:29 19:58 Temp 98.3 Pulse 60 Resp 18 B/P (MAP) 148/85 (106) Pulse Ox 98 O2 Delivery Room Air Capillary Refill : Less Than 3 Seconds General Appearance: No Apparent Distress, WD/WN Eyes: Bilateral Eye Normal Inspection, Bilateral Eye PERRL, Bilateral Eye EOMI HEENT: PERRL/EOMI, Normal ENT Inspection, Pharynx Normal Neck: Full Range of Motion, Normal Inspection, Non Tender, Supple, Carotid Bruit Respiratory: Chest Non Tender, Lungs Clear, Normal Breath Sounds, No Accessory Muscle Use, No Respiratory Distress Cardiovascular: Regular Rate, Rhythm, No Edema, No Gallop, No JVD, No Murmur, Normal Peripheral Pulses Gastrointestinal: Normal Bowel Sounds, No Organomegaly, No Pulsatile Mass, Non Tender, Soft Back: Normal Inspection, No CVA Tenderness, No Vertebral Tenderness Extremity: Normal Capillary Refill, Normal Inspection, Normal Range of Motion, Non Tender, No Calf Tenderness, No Pedal Edema Neurologic/Psychiatric: Alert, Oriented x3, No Motor/Sensory Deficits, Normal 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/Affect, 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 Norm as Tested, Depressed Affect (tearful) Skin: Normal Color, Warm/Dry Clinical Quality Measures DVT/VTE Risk/Contraindication: Risk Factor Score Per Nursin RFS Level Per Nursing on Admit: 1=Low/No VTE PPX Short Stay Diagnosis Discharge Diagnosis-Short Stay Admission Diagnosis: SUICIDE ATTEMPT OVERDOSE OF MUSCLE RELAXANTS BENZODIAZEPINE DEPENDENCE, UNCOMPLICATED GRIEF REACTION Final Discharge Diagnosis: SAME Conclusion Labs Laboratory Tests 07/25/17 16:24: White Blood Count 9.6, Red Blood Count 4.48, Hemoglobin 11.3L, Hematocrit 33L, Mean Corpuscular Volume 74L, Mean Corpuscular Hemoglobin 25, Mean Corpuscular Hemoglobin Concent 34, Red Cell Distribution Width 13.8, Platelet Count 430H, Mean Platelet Volume 9.9, Neutrophils (%) (Auto) 78H, Lymphocytes (%) (Auto) 15 , Monocytes (%) (Auto) 6, Eosinophils (%) (Auto) 2, Basophils (%) (Auto) 1, Neutrophils # (Auto) 7.5, Lymphocytes # (Auto) 1.4, Monocytes # (Auto) 0.5, Eosinophils # (Auto) 0.1, Basophils # (Auto) 0.1, Sodium Level 139, Potassium Level 3.7, Chloride Level 110H, Carbon Dioxide Level 21, Anion Gap 8, Blood Urea Nitrogen 8, Creatinine 0.71, Estimat Glomerular Filtration Rate > 60, BUN/ Creatinine Ratio 11, Glucose Level 239H, Calcium Level 8.4L, Total Bilirubin 1.0 , Aspartate Amino Transf (AST/SGOT) 15, Alanine Aminotransferase (ALT/SGPT) 15, Alkaline Phosphatase 65, Total Protein 6.8, Albumin 3.7, Salicylates Level < 5.0L, Acetaminophen Level < 10L, Serum Alcohol < 10 07/25/17 17:12: Urine Color YELLOW, Urine Clarity SLIGHTLY CLOUDY, Urine pH 7, Urine Specific [place] 1.010L, Urine Protein 2+H, Urine Glucose (UA) NEGATIVE, Urine Ketones 1+ H, Urine Nitrite NEGATIVE, Urine Bilirubin NEGATIVE, Urine Urobilinogen 4H, Urine Leukocyte Esterase 1+H, Urine RBC (Auto) NEGATIVE, Urine RBC NONE, Urine WBC 0-2, Urine Squamous Epithelial Cells 25-50H, Urine Crystals NONE, Urine Bacteria LARGEH, Urine Casts NONE, Urine Mucus LARGEH, Urine Culture Indicated NO, Urine Test NEGATIVE, Urine Opiates Screen NEGATIVE, Urine Oxycodone Screen NEGATIVE, Urine Methadone Screen NEGATIVE, Urine Propoxyphene Screen NEGATIVE, Urine Barbiturates Screen NEGATIVE, Ur Tricyclic Antidepressants Screen NEGATIVE, Urine Phencyclidine Screen NEGATIVE, Urine Amphetamines Screen NEGATIVE, Urine Methamphetamines Screen NEGATIVE, Urine Benzodiazepines Screen NEGATIVE, Urine Cocaine Screen NEGATIVE, Urine Cannabinoids Screen NEGATIVE 07/26/17 05:10: White Blood Count 8.0, Red Blood Count 4.33L, Hemoglobin 11.0L, Hematocrit 33L, Mean Corpuscular Volume 75L, Mean Corpuscular Hemoglobin 25, Mean Corpuscular Hemoglobin Concent 34, Red Cell Distribution Width 13.8, Platelet Count 360, Mean Platelet Volume 9.7, Neutrophils (%) (Auto) 68, Lymphocytes (%) (Auto) 22, Monocytes (%) (Auto) 7, Eosinophils (%) (Auto) 2, Basophils (%) (Auto) 1, Neutrophils # (Auto) 5.5, Lymphocytes # (Auto) 1.8, Monocytes # (Auto) 0.6, Eosinophils # (Auto) 0.2, Basophils # (Auto) 0.1, Sodium Level 141, Potassium Level 3.4L, Chloride Level 114H, Carbon Dioxide Level 19L, Anion Gap 8, Blood Urea Nitrogen 6L, Creatinine 0.61, Estimat Glomerular Filtration Rate > 60, BUN/ Creatinine Ratio 10, Glucose Level 82, Calcium Level 8.3L, Phosphorus Level 2.9 , Magnesium Level 1.8 Conclusion/Plan I spoke at length su Velez regarding her situation. She assured me that she now believes the decision to take too many pills was entirely out of character and that she would never do something like this again. Her mother is coming from [place] to be with her. Her therapist is Simran Alfaro at [facility], and she has already called to get an appointment with her in the near future. Rosie strongly believed that going home with her children and to see Simran was in her best interest. She felt that an inpatient psychatric admission would further take her away from her support system and her sons. She requested discharge with close follow up. Due to the suicidal act, I strongly advise that she be tapered off the benzodiazepine she is on. Had she taken that, she may have had a much more severe outcome. Copy Copies To 1: STEVE GAONA JULIE A MD Jul 26, 2017 3:18 pm
[2017-07-27] MEDS ORDERED: KCL 20 MEQ TAB (K-DUR) PO SCH (06:00)
[2017-07-27] MEDS ORDERED: POTASSIUM CL 10MEQ/50ML IVPB 50 ML IV SCH (06:00)
[2017-07-27] MEDS ORDERED: MAGNESIUM 1 GM/100 ML IVPB 100 ML IV SCH (06:00)
== END 2017-07-26 15:14 | disposition home or self-care (01) ==
LOC: EDUNIT# 16:14 → ER 16:15 → UNDOADMOB 16:59 → ICU 16:59 → UNDODISOB 07-26 06:05
PROVIDERS: ADMIT Pediatrics; ATTEND Pediatrics
DX: T42.8X2A Poisoning by antiparkinsonism drugs and other central muscle-tone depressants, intentional self-harm, initial encounter (principal); F13.20 Sedative, hypnotic or anxiolytic dependence, uncomplicated; F43.20 Adjustment disorder, unspecified; F41.9 Anxiety disorder, unspecified; F32.9 Major depressive disorder, single episode, unspecified; M79.7 Fibromyalgia; Z79.899 Other long term (current) drug therapy; Z88.1 Allergy status to other antibiotic agents; Z88.2 Allergy status to sulfonamides
CPT/HCPCS: 36415; 80048; 80053; 80306; 80320; 80329; 81000; 83735; 84100; 84703; 85025; 93005; G0378

== ENCOUNTER 2017-09-29 02:38 | Emergency (ER) | payer MEDICAID ==
[~2017-09-29] VITALS: Ht 157.5 cm; Wt 49.4 kg
[~2017-09-29 02:38] MED LIST changes: +CHOL100048 PO; +CLON1TAB3 PO; +DULO60CA58 PO; +HYDR-34 PO; -HYDR-3816 PO; +VITA400C21 PO
--- OUTSIDE RECORDS SUMMARY | 2017-09-29 02:45 | XMS REPORT | Clinical Summary ---
Author Author [facility] Organization [facility] Address Unknown Phone Unavailable Care Team Providers Care In Store Marketing Associate Name Role Phone Fabi Flores MD Unavailable Unavailable Santana Li DO Unavailable Santana Li DO PCP Beau Palomares MD Unavailable Sergio Haney MD Unavailable Owen Easley MD Unavailable Unavailable Lucia Arias RN Unavailable Unavailable Clementine Shaffer MD Unavailable Source Comments Some departments are not documenting in the electronic medical record. If you do not see the information that you expected, contact Release of Information in the Health Information Management department at [phone] for further assistance in locating additional records.[facility] Allergies Active Allergy Reactions Severity [...] 01/04/20 Active mg tablet bedtime daily. [address] (CYMBALTA) Take 2 capsules by mouth 60 capsule 2 Active 60 mg capsuleIndications: daily. 18 Fibromyalgia syndrome tiZANidine (ZANAFLEX) 4 Take 0.5-1 tablets by 90 tablet 2 09/28/19 Active mg tabletIndications: mouth three times daily 18 MUSCLE SPASM as needed. tiZANidine (ZANAFLEX) 4 Take 0.5-1 tablets by 90 tablet 2 06/20/20 09/28/19 Discontin mg tabletIndications: mouth three times daily 17 18 ued MUSCLE SPASM as needed. Indications: MUSCLE SPASM Active Problems Problem [...] Encounters Date Type Specialty Care Team Description 09/27/2017 Refill Anesthesia Pain Sergio Haney MD Amplified musculoskeletal pain, diffuse 09/12/2017 Telephone Anesthesia Pain Lucia Arias RN Medication Refill 07/26/2017 Telephone Anesthesia Pain Marc Dumont RN Drug Problem 07/20/2017 Refill Anesthesia Pain Lucia Arias RN Fibromyalgia syndrome from Last 3 Months Family [...] 36.7 C (98 F) 09/14/2016 10:13 AM VERSE WRITER Respiratory Rate 20 04/26/2017 9:21 AM CDT Oxygen Saturation 100% 04/26/2017 9:21 AM CDT Inhaled Oxygen - - Concentration Weight 52.2 kg (115 lb) 04/26/2017 9:21 AM CDT Height 157.5 cm (5' 2") 04/26/2017 9:21 AM CDT Body Mass Index 21.03 04/26/2017 9:21 AM CDT Plan of Treatment Health Maintenance Due Date Last Done Comments PHYSICAL (COMPREHENSIVE) 1981 EXAM PERTUSSIS VACCINE 1985 HIV SCREENING 1989 TETANUS VACCINE 1991 BREAST CANCER SCREENING 09/04/2016 09/04/2015 INFLUENZA VACCINE 04/17/2018 CERVICAL CANCER SCREENING 09/04/2018 09/04/2015 Results Not on filefrom Last 3 Months
--- OUTSIDE RECORDS SUMMARY | 2017-09-29 02:45 | XMS REPORT | Encounter Summary ---
Author Author [facility] Organization [facility] Address Unknown Phone Unavailable Care Team Providers Care Tennis Court Attendant Name Role Phone Fabi Flores MD Unavailable Unavailable Santana Li DO Unavailable Santana Li DO PCP Beau Palomares MD Unavailable Sergio Haney MD Unavailable Owen Easley MD Unavailable Unavailable Lucia Arias RN Unavailable Unavailable Clementine Shaffer MD Unavailable Reason for Visit * Reason Comments Medication Refill Encounter Details Date Type Department Care Team Description 09/27/2017 Refill Spine Center Anesthesia Sergio Haney MD [facility] musculoskeletal Pain Clinic [address] pain, diffuse [address] [place] [address] [place] [address] [phone] Social History Tobacco Use Types Packs/Day Years [...] impairment: No 04/26/2017 as of this encounter Plan of Treatment Not on fileas of this encounter Visit Diagnoses Diagnosis Amplified musculoskeletal pain, diffuse Mylagia and myositis, unspecified
--- OUTSIDE RECORDS SUMMARY | 2017-09-29 02:45 | XMS REPORT | Continuity of Care Document ---
Author Author [facility] Organization [facility] Address Unknown Phone Unavailable Care Team Providers Care Loss Prevention Analyst Name Role Phone [employer] Unavailable Unavailable Problems Medications Allergies, Adverse Reactions, Alerts Immunizations Results Vital Signs Encounters Location Location Details Encounter Type Encounter Number Reason For Visit Attending Provider ADM Date DC Date Status Source OUTPATIENT [id number] BG SAWANT 12/31/2015 12/31/2015 Active [facility] OUTPATIENT [id number] BG SAWANT 03/29/2017 Active [facility] OUTPATIENT [id number] BG SAWANT 04/19/2017 Active [facility] OUTPATIENT [id number] BG SAWANT 04/26/2017 Active [facility] OUTPATIENT [id number] BG SAWANT 07/26/2017 Active [facility] OUTPATIENT [id number] BG SAWANT 09/06/2017 Active [facility] O BG SAWANT Active [facility] Procedures Plan of Care Social History Assessment and Plan Family History Advance Directives Functional Status
--- OUTSIDE RECORDS SUMMARY | 2017-09-29 02:46 | XMS REPORT | Encounter Summary ---
Author Author [facility] Organization [facility] Address Unknown Phone Unavailable Care Team Providers Care Siding Applicator Name Role Phone Fabi Flores MD Unavailable Unavailable Santana Li DO Unavailable Santana Li DO PCP Beau Palomares MD Unavailable Sergio Haney MD Unavailable Owen Easley MD Unavailable Unavailable Lucia Arias RN Unavailable Unavailable Clementine Shaffer MD Unavailable Reason for Visit * Reason Comments Medication Refill Encounter Details Date Type Department Care Team Description 09/12/2017 Telephone Spine Center Anesthesia Lucia Arias RN Medication Refill Pain Clinic [address] [place] [id number] Social History Tobacco Use Types Packs/Day Years [...] Telephone Encounter - Lucia Arias RN - 09/12/2017 6:28 PM HEAD OF PRECISION TARGETING Refill request for tizanidine 2-4 mg tid prn muscle spasm Date of last refill per pharmacy 08/13/2017. Last office visit 04/26/2017. Last no show for 09/06/17. Follow up appointment n/a. Per 07/26/17 note patient took an overdose of muscle relaxants. Route to Dr. Haney for review. Per [facility] paperwork, Patient was admitted 07/25 for suicide overdose and discharged the next day. She was scheduled for an appointment with Simran Alfaro the next day--unk if she attended. Will need signed consent to obtain records. Tizanidine remained on her discharge med list and she last filled the tizanidine on 08/13/2017. in this encounter Plan of Treatment Not on fileas of this encounter Visit Diagnoses Not on filein this encounter
--- OUTSIDE RECORDS SUMMARY | 2017-09-29 02:46 | XMS REPORT | Encounter Summary ---
Author Author [facility] Organization [facility] Address Unknown Phone Unavailable Care Team Providers Care Pin Or Clip Fastener Name Role Phone Fabi Flores MD Unavailable Unavailable Santana Li DO Unavailable Santana Li DO PCP Beau Palomares MD Unavailable Sergio Haney MD Unavailable Owen Easley MD Unavailable Unavailable Lucia Arias RN Unavailable Unavailable Clementine Shaffer MD Unavailable Reason for Visit * Reason Comments Drug Problem Encounter Details Date Type Department Care Team Description 07/26/2017 Telephone Spine Center Anesthesia Marc Dumont RN Drug Problem Pain Clinic [address] [place] [id number] Social History Tobacco Use Types Packs/Day [...] encounter Miscellaneous Notes * Telephone Encounter - Marc Dumont RN - 07/26/2017 10:48 AM DANCE DIRECTOR Pt had a personal situation and that led to a low point yesterday and she ended up taking an overdose of her muscle relaxants. She is in the hospital in [place] where she says they are committing her. Among many concerns, she will not make it to her appointment today. in this encounter Plan of Treatment Not on fileas of this encounter Visit Diagnoses Not on filein this encounter
--- OUTSIDE RECORDS SUMMARY | 2017-09-29 02:47 | XMS REPORT | Encounter Summary ---
Author Author [facility] Organization [facility] Address Unknown Phone Unavailable Care Team Providers Care Watch Technician Name Role Phone Fabi Flores MD Unavailable [...] Lucia Arias RN Fibromyalgia syndrome Pain Clinic [address] [place] [phone] Social History Tobacco Use Types Packs/Day [...] Lucia Arias RN - 07/20/2017 3:20 PM CHEMICAL PRODUCTION MACHINE OPERATOR Refill request for Cymbalta 60 mg 2 caps po daily Last office visit 04/26/2017. Follow up appointment 07/26/2017. Refill per protocol. in this encounter Plan of Treatment Not on fileas of this encounter Visit Diagnoses Diagnosis Fibromyalgia syndrome Mylagia and myositis, unspecified
--- OUTSIDE RECORDS SUMMARY | 2017-09-29 02:54 | XMS REPORT | Continuity of Care Document ---
Author Author [facility] Address Unknown Phone Unavailable Allergies Active Description Code Type Severity Reaction Onset Reported/Identified Relationship to Patient Clinical Status Yes Sulfa (Sulfonamide Antibiotics) Drug Allergy N/A N/A 01/03/2009 Yes sulfa drug Drug Allergy 01/03/2009 Yes Celexa Drug Allergy N/A N/A 05/04/2010 Yes Celexa Drug Allergy 05/04/2010 Yes amoxicillin [id number] Drug Allergy Unknown RASH 07/26/2016 Yes Sulfa (Sulfonamide Antibiotics) [id number] Drug Allergy Unknown N/A 2016 Medications There [...] LOPEZ APRN V22.1 Pc Other Normal 08/21/2008 [facility], [place] R V22.1 Pc Other Normal 08/21/2008 [facility] [place] R V22.1 Pc Other Normal 08/21/2008 [facility], [place] R V22.1 Pc Other Normal 08/21/2008 [facility], [place] R V22.1 Pc Other Normal 08/21/2008 [facility], [place] R V22.1 Pc Other Normal 08/21/2008 [place] VALDIV[place] APRN V22.1 Pc Other Normal 08/21/2008 [facility], [place] R V22.1 Pc Other Normal 08/21/2008 KATERINE LOPEZ APRN V22.1 Pc Other Normal 08/21/2008 [facility], [place] R V22.1 Pc Other Normal 08/21/2008 [facility], [place] R V22.1 Pc Other Normal 08/21/2008 [facility], [place] R V22.1 Pc Other Normal 08/21/2008 KATERINE LOPEZ APRN V22.1 Pc Other Normal 08/21/2008 KATERINE LOPEZ APRN V22.1 Pc Other Normal 08/21/2008 KATERINE LOPEZ APRN V22.1 Pc Other Normal 08/21/2008 [facility], [place] R V22.1 Pc Other Normal 08/21/2008 [place] A V22.1 Pc Other Normal 08/21/2008 [facility], [place] R V22.1 Pc Other Normal 08/21/2008 [facility], [place] R V22.1 Pc Other Normal 08/21/2008 [facility] [place] R V22.1 Pc Other Normal 08/21/2008 [facility] [place] R V22.1 Pc Other Normal 08/21/2008 [employer] [employer] A V22.1 Pc Other Normal 08/21/2008 [facility] [employer], YUSRA L V22.1 Pc Other Normal 08/21/2008 [employer], YUSRA L V22.1 Pc Other Normal 08/21/2008 [facility] [employer], YUSRA L V22.1 Pc Other Normal 08/21/2008 [employer], YUSRA L V22.1 Pc Other Normal 08/21/2008 [facility], [place] R V22.1 Pc Other Normal 08/21/2008 [facility] [place] R V22.1 Pc Other Normal 09/04/2008 V22.2 Incidental 09/04/2008 V22.2 Incidental 09/04/2008 V22.2 Incidental 09/04/2008 V22.2 Incidental 09/04/2008 V22.2 Incidental 09/04/2008 V22.2 Incidental 09/04/2008 V22.2 Incidental 09/04/2008 V22.2 Incidental 09/04/2008 V22.2 Incidental 09/04/2008 V22.2 Incidental 09/04/2008 KATERINE LOPEZ APRN V22.2 Incidental 09/04/2008 [facility], [place] R V22.2 Incidental 09/04/2008 [facility] [place] R V22.2 Incidental 09/04/2008 [facility] [place] R V22.2 Incidental 09/04/2008 [facility] [place] R V22.2 Incidental 09/04/2008 [facility] [place] R V22.2 Incidental 09/04/2008 [place] A V22.2 Incidental 09/04/2008 [facility], [place] R V22.2 Incidental 09/04/2008 KATERINE LOPEZ APRN V22.2 Incidental 09/04/2008 [facility] [place] R V22.2 Incidental 09/04/2008 [facility] [place] R V22.2 Incidental 09/04/2008 [facility] [place] R V22.2 Incidental 09/04/2008 KATERINE LOPEZ APRN V22.2 Incidental 09/04/2008 KATERINE LOPEZ APRN V22.2 Incidental 09/04/2008 KATERINE LOPEZ APRN V22.2 Incidental 09/04/2008 [facility], [place] R V22.2 Incidental 09/04/2008 [employer] [employer] [facility] A V22.2 Incidental 09/04/2008 [facility], [place] R V22.2 Incidental 09/04/2008 [facility] [place] R V22.2 Incidental 09/04/2008 [facility], [place] R V22.2 Incidental 09/04/2008 [facility] [place] R V22.2 Incidental 09/04/2008 [employer] [employer] [facility] A V22.2 Incidental 09/04/2008 YUSRA JIMENEZ APRN L V22.2 Incidental 09/04/2008 [employer], YUSRA L V22.2 Incidental 09/04/2008 [employer], YUSRA L V22.2 Incidental 09/04/2008 [facility] [employer], YUSRA L V22.2 Incidental 09/04/2008 [facility], [place] R V22.2 Incidental 09/04/2008 [facility], [place] R V22.2 Incidental 01/03/2009 V25.41 [...] LOPEZ APRN V72.31 Pelvic Exam (internal) [facility]/03[facility] Visit For: Contraceptive Surveillance Pill [facility]/03/2009 [facility] Exam (internal) [facility]03[facility] For: Contraceptive Surveillance Pill 01/03/2009 [facility], [place] R V72.31 Pelvic Exam (internal) 01/03/2009 [facility], [place] R V25.41 Visit For: Contraceptive Surveillance Pill 01/03/2009 [facility], [place] R V72.31 Pelvic Exam (internal) 01/03/2009 [facility], [place] R V25.41 Visit For: Contraceptive Surveillance Pill 01/03/2009 [facility] [place] R V72.31 Pelvic Exam (internal) 01/03/2009 [facility], [place] R V25.41 Visit For: Contraceptive Surveillance Pill 01/03/2009 [facility], [place] R V72.31 Pelvic Exam (internal) 01/03/2009 [place] VALDIVIA APRN A V25.41 Visit For: Contraceptive Surveillance Pill 01/03/2009 SKIPHO Aiken APRN A V72.31 Pelvic Exam (internal) 01/03/2009 [facility], [place] R V25.41 Visit For: Contraceptive Surveillance Pill 01/03/2009 [facility], [place] R V72.31 Pelvic Exam (internal) 01/03/2009 KATERINE LOPEZ APRN V25.41 Visit For: Contraceptive Surveillance Pill 01/03/2009 KATERINE LOPEZ APRN V72.31 Pelvic Exam (internal) 01/03/2009 [facility], [place] R V25.41 Visit For: Contraceptive Surveillance Pill 01/03/2009 [facility], [place] R V72.31 Pelvic Exam (internal) 01/03/2009 [facility], [place] R V25.41 Visit For: Contraceptive Surveillance Pill 01/03/2009 [facility], [place] R V72.31 Pelvic Exam (internal) 01/03/2009 [facility], [place] R V25.41 Visit For: Contraceptive Surveillance Pill 01/03/2009 [facility], [place] R V72.31 Pelvic Exam (internal) 01/03/2009 KATERINE LOPEZ APRN V25.41 Visit For: Contraceptive Surveillance Pill 01/03/2009 KATERINE LOPEZ APRN V72.31 Pelvic Exam (internal) 01/03/2009 KATERINE LOPEZ APRN V25.41 Visit For: Contraceptive Surveillance Pill 01/03/2009 KATERINE LOPEZ APRN V72.31 Pelvic Exam (internal) 01/03/2009 KATERINE LOPEZ APRN V25.41 Visit For: Contraceptive Surveillance Pill 01/03/2009 KATERINE LOPEZ APRN V72.31 Pelvic Exam (internal) 01/03/2009 [facility], [place] R V25.41 Visit For: Contraceptive Surveillance Pill 01/03/2009 [facility], [place] R V72.31 Pelvic Exam (internal) 01/03/2009 [employer] [employer] [facility] A V25.41 Visit For: Contraceptive Surveillance Pill 01/03/2009 [employer] [employer] [facility] A V72.31 Pelvic Exam (internal) 01/03/2009 [facility], [place] R V25.41 Visit For: Contraceptive Surveillance Pill 01/03/2009 [facility], [place] R V72.31 Pelvic Exam (internal) 01/03/2009 [facility], [place] R V25.41 Visit For: Contraceptive Surveillance Pill 01/03/2009 [facility], [place] R V72.31 Pelvic Exam (internal) 01/03/2009 [facility], [place] R V25.41 Visit For: Contraceptive Surveillance Pill 01/03/2009 [facility], [place] R V72.31 Pelvic Exam (internal) 01/03/2009 [facility], [place] R V25.41 Visit For: Contraceptive Surveillance Pill 01/03/2009 [facility], [place] R V72.31 Pelvic Exam (internal) 01/03/2009 [employer] [employer] [facility] A V25.41 Visit For: Contraceptive Surveillance Pill 01/03/2009 [employer] [employer] [facility] A V72.31 Pelvic Exam (internal) 01/03/2009 [employer], YUSRA L V25.41 Visit For: Contraceptive Surveillance Pill 01/03/2009 [employer], YUSRA L V72.31 Pelvic Exam (internal) 01/03/2009 [employer], YUSRA L V25.41 Visit For: Contraceptive Surveillance Pill 01/03/2009 [employer], YUSRA L V72.31 Pelvic Exam (internal) 01/03/2009 [employer], YUSRA L V25.41 Visit For: Contraceptive Surveillance Pill 01/03/2009 [employer], YUSRA L V72.31 Pelvic Exam (internal) 01/03/2009 [employer], YUSRA L V25.41 Visit For: Contraceptive Surveillance Pill 01/03/2009 [employer], YUSRA L V72.31 Pelvic Exam (internal) 01/03/2009 [facility] Visit For: Contraceptive Surveillance Pill 01/03/2009 [facility], [place] R V72.31 Pelvic Exam (internal) 01/03/2009 [facility] V[facility] Visit For: Contraceptive Surveillance Pill 01/03/2009 [facility], [place] R V72.31 Pelvic Exam (internal) [...] APRN V25.40 Visit For: Contraceptive Surveillance 10/14/2009 [facility], [place] R 623.5 Vaginal Discharge 10/14/2009 [facility] V[facility].40 Visit For: Contraceptive Surveillance 10/14/2009 [facility], [place] R 623.5 Vaginal Discharge 10/14/2009 [...] V25.40 Visit For: Contraceptive Surveillance 10/14/2009 [employer] [facility] A 623.5 Vaginal Discharge 10/14/2009 [employer] [facility] A V25.40 Visit For: Contraceptive Surveillance [...] V25.40 Visit For: Contraceptive Surveillance 10/14/2009 [facility]OKATERINE D 623.5 Vaginal Discharge 10/14/2009 [facility] ASSOCIATEMARIAMKATERINE D V25.40 Visit For: Contraceptive Surveillance 10/14/2009 [facility] [facility] KATERINE D 623.5 Vaginal Discharge 10/14/2009 [facility] [employer], KATERINE D V25.40 Visit For: Contraceptive Surveillance 10/14/2009 [facility] ASSOCIATEMARIAMKATERINE D 623.5 Vaginal Discharge 10/14/2009 KATERINE LOPEZ APRN V25.40 Visit For: Contraceptive Surveillance 10/14/2009 [facility], [place] R 623.5 Vaginal Discharge 10/14/2009 [facility], [place] R V25.40 Visit For: Contraceptive Surveillance 10/14/2009 [employer] [employer] [facility] A 623.5 Vaginal Discharge 10/14/2009 [employer] [employer] [facility] A V25.40 Visit For: Contraceptive Surveillance [...] LSCS, [place] R 623.5 Vaginal Discharge 10/14/2009 [facility] [place] [facility] V25.40 Visit For: Contraceptive Surveillance 10/14/2009 [employer] [facility] A 623.5 Vaginal Discharge 10/14/2009 [employer] [employer] [facility] A V25.40 Visit For: Contraceptive Surveillance 10/14/2009 [employer], YUSRA L 623.5 Vaginal Discharge 10/14/2009 [employer], YUSRA L V25.40 Visit For: Contraceptive Surveillance 10/14/2009 [employer], YUSRA L 623.5 Vaginal Discharge 10/14/2009 [employer], YUSRA L V25.40 Visit For: Contraceptive Surveillance 10/14/2009 [employer], YUSRA L 623.5 Vaginal Discharge 10/14/2009 [employer], YUSRA L V25.40 Visit For: Contraceptive Surveillance 10/14/2009 [employer], YUSRA L 623.5 Vaginal Discharge 10/14/2009 [employer], YUSRA L V25.40 Visit For: Contraceptive Surveillance 10/14/2009 [facility], [place] R 623.5 Vaginal Discharge 10/14/2009 [facility], [place] R V25.40 Visit For: Contraceptive Surveillance 10/14/2009 [facility], [place] R 623.5 Vaginal Discharge 10/14/2009 [facility], [place] R V25.40 Visit For: Contraceptive [...] 11/12/2009 KATERINE LOPEZ APRN 780.99 ANHEDONIA 11/12/2009 [facility], [place] R 300.00 anxiety 11/12/2009 [facility], [place] R 780.99 ANHEDONIA 11/12/2009 [facility], [place] R 300.00 anxiety 11/12/2009 [facility], [place] R 780.99 ANHEDONIA 11/12/2009 [facility], [place] R 300.00 anxiety 11/12/2009 [facility], [place] R 780.99 ANHEDONIA 11/12/2009 [facility], [place] R 300.00 anxiety 11/12/2009 [facility], [place] R 780.99 ANHEDONIA 11/12/2009 [facility], [place] R 300.00 anxiety 11/12/2009 [facility], [place] R 780.99 ANHEDONIA 11/12/2009 [employer] [facility] A 300.00 anxiety 11/12/2009 [place], [place] A 780.99 ANHEDONIA 11/12/2009 [facility], [place] R 300.00 anxiety 11/12/2009 [facility], [place] R 780.99 ANHEDONIA 11/12/2009 KATERINE LOPEZ APRN 300.00 anxiety 11/12/2009 KATERINE LOPEZ APRN 780.99 ANHEDONIA 11/12/2009 [facility], [place] R 300.00 anxiety 11/12/2009 [facility], [place] R 780.99 ANHEDONIA 11/12/2009 [facility], [place] R 300.00 anxiety 11/12/2009 [facility], [place] R 780.99 ANHEDONIA 11/12/2009 [facility], [place] R 300.00 anxiety 11/12/2009 [facility], [place] R 780.99 ANHEDONIA 11/12/2009 KATERINE LOPEZ APRN 300.00 anxiety 11/12/2009 KATERINE LOPEZ APRN 780.99 ANHEDONIA 11/12/2009 KATERINE LOPEZ APRN 300.00 anxiety 11/12/2009 KATERINE LOPEZ APRN 780.99 ANHEDONIA 11/12/2009 KATERINE LOPEZ APRN 300.00 anxiety 11/12/2009 KATERINE LOPEZ APRN 780.99 ANHEDONIA 11/12/2009 [facility], [place] R 300.00 anxiety 11/12/2009 [facility], [place] R 780.99 ANHEDONIA 11/12/2009 [employer] [facility] A 300.00 anxiety 11/12/2009 SKIP STEVE, [...] LSCS, [place] R 780.99 ANHEDONIA 11/12/2009 [employer] A 300.00 anxiety 11/12/2009 [place], [place] A 780.99 ANHEDONIA 11/12/2009 [employer], UYSRA L 300.00 anxiety 11/12/2009 [employer], YUSRA L 780.99 ANHEDONIA 11/12/2009 [employer], YUSRA L 300.00 anxiety 11/12/2009 [employer], YUSRA L 780.99 ANHEDONIA 11/12/2009 [employer], YUSRA L 300.00 anxiety 11/12/2009 [employer], YUSRA L 780.99 ANHEDONIA 11/12/2009 [employer], YUSRA L 300.00 anxiety 11/12/2009 [employer], YUSRA L 780.99 ANHEDONIA 11/12/2009 [facility], [place] R 300.00 anxiety 11/12/2009 [facility], [place] R 780.99 ANHEDONIA 11/12/2009 [facility], [place] R 300.00 anxiety 11/12/2009 [facility], [place] R 780.99 ANHEDONIA 05/04/2010 V58.69 [...] LOPEZ APRN V58.69 taking high-risk medication 05/04/2010 [facility], [place] R V58.69 taking high-risk medication 05/04/2010 [facility], [place] R V58.69 taking high-risk medication 05/04/2010 [facility], [place] R V58.69 taking high-risk medication 05/04/2010 [facility], [place] R V58.69 taking high-risk medication 05/04/2010 [facility], [place] R V58.69 taking high-risk medication 05/04/2010 [employer] [facility] A V58.69 taking high-risk medication 05/04/2010 [facility], [place] R V58.69 taking high-risk medication 05/04/2010 G[facility] KATERINE [place] D V58.69 taking high-risk medication 05/04/2010 [facility], [place] R V58.69 taking high-risk medication 05/04/2010 [facility], [place] R V58.69 taking high-risk medication 05/04/2010 [facility], [place] R V58.69 taking high-risk medication 05/04/2010 [facility]IATEKATERINE Aiken D V58.69 taking high-risk medication 05/04/2010 [facility] KATERINE [place] D V58.69 taking high-risk medication 05/04/2010 [facility] ASS[facility]IATEKATERINE Aiken D V58.69 taking high-risk medication 05/04/2010 [facility], [place] R V58.69 taking high-risk medication 05/04/2010 [employer] [employer] [facility] A V58.69 taking high-risk medication 05/04/2010 [facility], [place] R V58.69 taking high-risk medication 05/04/2010 [facility], [place] R V58.69 taking high-risk medication 05/04/2010 [facility], [place] R V58.69 taking high-risk medication 05/04/2010 [facility], [place] R V58.69 taking high-risk medication 05/04/2010 [employer] [employer] [facility] A V58.69 taking high-risk medication 05/04/2010 [employer] [employer], YUSRA L V58.69 taking high-risk medication 05/04/2010 [facility] [employer], YUSRA L V58.69 taking high-risk medication 05/04/2010 [employer], YUSRA L V58.69 taking high-risk medication 05/04/2010 [facility] [employer], YUSRA L V58.69 taking high-risk medication 05/04/2010 [facility], [place] R V58.69 taking high-risk medication 05/04/2010 [facility], [place] R V58.69 taking high-risk medication [...] R V74.5 Std Screen 06/04/2010 [facility], MAT[place] R 599.0 Urinary Tract Infection 06/04/2010 RENUKA [...] KATERINE LOPEZ APRN V74.5 Std Screen 06/04/2010 [place], [place] R 599.0 Urinary Tract Infection [...] R 616.10 Vaginitis And Vulvovaginitis Unspecified 06/04/2010 [facility], [place] R V65.45 Std Counseling 06/04/2010 [facility], [place] R V74.5 Std Screen 06/04/2010 [...] LOPEZ APRN D V74.5 Std Screen 06/04/2010 [facility], [place] R 599.0 Urinary Tract Infection 06/04/2010 [facility], [place] R 616.10 Vaginitis And Vulvovaginitis Unspecified 06/04/2010 [facility], [place] R V65.45 Std Counseling 06/04/2010 [facility], [place] R V74.5 Std Screen 06/04/2010 [place] VALDIV[place] APRN A 599.0 Urinary Tract Infection 06/04/2010 [place] VAL[place] APRN A 616.10 Vaginitis And Vulvovaginitis Unspecified 06/04/2010 [place] VAL[place] APRN A V65.45 Std Counseling 06/04/2010 [facility] [employer] [facility] A V74.5 Std Screen 06/04/2010 RENUKA [...] LSCS, [place] R V65.45 Std Counseling 06/04/2010 [facility] [place] [facility] V74.5 Std Screen 06/04/2010 SKIP [place], [place] A 599.0 Urinary Tract Infection 06/04/2010 [facility] [employer] [facility] A 616.10 Vaginitis And Vulvovaginitis Unspecified 06/04/2010 [facility] [employer] [facility] A V65.45 Std Counseling 06/04/2010 SKIP APRN, [place] A V74.5 Std Screen 06/04/2010 [facility] [employer], YUSRA L 599.0 Urinary Tract Infection 06/04/2010 [facility] [employer]ATE, YUSRA L 616.10 Vaginitis And Vulvovaginitis Unspecified 06/04/2010 [facility] [employer]ATE, YUSRA L V65.45 Std Counseling 06/04/2010 [facility] [employer]ATE, YUSRA L V74.5 Std Screen 06/04/2010 [facility] [employer]ATE, YUSRA L 599.0 Urinary Tract Infection 06/04/2010 [facility] [employer]ATE, YUSRA L 616.10 Vaginitis And Vulvovaginitis Unspecified 06/04/2010 [facility] [employer]ATE, YUSRA L V65.45 Std Counseling 06/04/2010 [employer] [employer]ATE, YUSRA L V74.5 Std Screen 06/04/2010 [facility] [employer]ATE, YUSRA L 599.0 Urinary Tract Infection 06/04/2010 [facility] [employer]ATE, YUSRA L 616.10 Vaginitis And Vulvovaginitis Unspecified 06/04/2010 [employer]ATE, YUSRA L V65.45 Std Counseling 06/04/2010 [employer]ATE, YUSRA L V74.5 Std Screen 06/04/2010 [employer]ATE, YUSRA L 599.0 Urinary Tract Infection 06/04/2010 [employer]IATE, YUSRA L 616.10 Vaginitis And Vulvovaginitis Unspecified 06/04/2010 [employer]ATE, YUSRA L V65.45 Std Counseling 06/04/2010 [employer]ATE, YUSRA L V74.5 Std Screen 06/04/2010 [facility], MATTHIEU R 599.0 Urinary Tract Infection 06/04/2010 [facility], [place] R 616.10 Vaginitis And Vulvovaginitis Unspecified 06/04/2010 [facility], [place] R V65.45 Std Counseling 06/04/2010 [facility], [place] R V74.5 Std Screen 06/04/2010 [facility], [place] R 599.0 Urinary Tract Infection 06/04/2010 [facility], [place] R 616.10 Vaginitis And Vulvovaginitis Unspecified 06/04/2010 [facility], [place] R V65.45 Std Counseling 06/04/2010 [facility], [place] R V74.5 Std Screen 09/08/2010 [...] HISTORY OF MALIGNANT NEOPLASM OF BREAST 09/08/2010 [facility], [place] R V16.3 FAMILY HISTORY OF MALIGNANT NEOPLASM OF BREAST 09/08/2010 [facility], [place] R V16.3 FAMILY HISTORY OF MALIGNANT NEOPLASM OF BREAST 09/08/2010 [facility], [place] R V16.3 FAMILY HISTORY OF MALIGNANT NEOPLASM OF BREAST 09/08/2010 [facility], [place] R V16.3 FAMILY HISTORY OF MALIGNANT NEOPLASM OF BREAST 09/08/2010 [facility], [place] R V16.3 FAMILY HISTORY OF MALIGNANT NEOPLASM OF BREAST 09/08/2010 [place] VADLIVIA APRN V16.3 FAMILY HISTORY OF MALIGNANT NEOPLASM OF BREAST 09/08/2010 [facility], [place] R V16.3 FAMILY HISTORY OF MALIGNANT NEOPLASM OF BREAST 09/08/2010 KATERINE LOPEZ APRN V16.3 FAMILY HISTORY OF MALIGNANT NEOPLASM OF BREAST 09/08/2010 [facility], [place] R V16.3 FAMILY HISTORY OF MALIGNANT NEOPLASM OF BREAST 09/08/2010 [facility], [place] R V16.3 FAMILY HISTORY OF MALIGNANT NEOPLASM OF BREAST 09/08/2010 [facility], [place] R V16.3 FAMILY HISTORY OF MALIGNANT NEOPLASM OF BREAST 09/08/2010 KATERINE LOPEZ APRN V16.3 FAMILY HISTORY OF MALIGNANT NEOPLASM OF BREAST 09/08/2010 KATERINE LOPEZ APRN V16.3 FAMILY HISTORY OF MALIGNANT NEOPLASM OF BREAST 09/08/2010 KATERINE LOPEZ APRN V16.3 FAMILY HISTORY OF MALIGNANT NEOPLASM OF BREAST 09/08/2010 [facility], [place] R V16.3 FAMILY HISTORY OF MALIGNANT NEOPLASM OF BREAST 09/08/2010 [employer], [place] A V16.3 FAMILY HISTORY OF MALIGNANT NEOPLASM OF BREAST 09/08/2010 [facility], [place] R V16.3 FAMILY HISTORY OF MALIGNANT NEOPLASM OF BREAST 09/08/2010 [facility], [place] R V16.3 FAMILY HISTORY OF MALIGNANT NEOPLASM OF BREAST 09/08/2010 [facility], [place] R V16.3 FAMILY HISTORY OF MALIGNANT NEOPLASM OF BREAST 09/08/2010 [facility], [place] R V16.3 FAMILY HISTORY OF MALIGNANT NEOPLASM OF BREAST 09/08/2010 [facility] [facility], [place] A V16.3 FAMILY HISTORY OF MALIGNANT NEOPLASM OF BREAST 09/08/2010 [facility], YUSRA L V16.3 FAMILY HISTORY OF MALIGNANT NEOPLASM OF BREAST 09/08/2010 [facility] [employer] [facility], YUSRA L V16.3 FAMILY HISTORY OF MALIGNANT NEOPLASM OF BREAST 09/08/2010 [facility] [employer] [facility], YUSRA L V16.3 FAMILY HISTORY OF MALIGNANT NEOPLASM OF BREAST 09/08/2010 [facility] [employer] [facility], YUSRA L V16.3 FAMILY HISTORY OF MALIGNANT NEOPLASM OF BREAST 09/08/2010 [facility], [place] R V16.3 FAMILY HISTORY OF MALIGNANT NEOPLASM OF BREAST 09/08/2010 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, [place] R 786.52 ANTERIOR WALL CHEST PAIN WITH RESPIRATION 11/23/2010 [facility], [place] A 786.52 ANTERIOR WALL CHEST PAIN WITH RESPIRATION 11/23/2010 [facility] [facility], YUSRA L 786.52 ANTERIOR WALL CHEST PAIN WITH RESPIRATION 11/23/2010 [facility] [facility], YUSRA L 786.52 ANTERIOR WALL CHEST PAIN WITH RESPIRATION 11/23/2010 [facility], YUSRA L 786.52 ANTERIOR WALL CHEST PAIN WITH RESPIRATION 11/23/2010 [facility], YUSRA L 786.52 ANTERIOR WALL CHEST PAIN WITH RESPIRATION 11/23/2010 [facility], [place] R 786.52 ANTERIOR WALL CHEST PAIN WITH RESPIRATION 11/23/2010 [facility], [place] R 786.52 ANTERIOR WALL CHEST PAIN WITH RESPIRATION 12/15/2010 780.52 INSOMNIA UNSPECIFIED 12/15/2010 780.52 INSOMNIA UNSPECIFIED 12/15/2010 780.52 INSOMNIA UNSPECIFIED 12/15/2010 780.52 INSOMNIA UNSPECIFIED 12/15/2010 780.52 INSOMNIA UNSPECIFIED 12/15/2010 780.52 INSOMNIA UNSPECIFIED 12/15/2010 780.52 INSOMNIA UNSPECIFIED 12/15/2010 780.52 INSOMNIA UNSPECIFIED 12/15/2010 780.52 INSOMNIA UNSPECIFIED 12/15/2010 780.52 INSOMNIA UNSPECIFIED 12/15/2010 KATERINE LOPEZ APRN 780.52 INSOMNIA UNSPECIFIED 12/15/2010 [facility], [place] R 780.52 INSOMNIA UNSPECIFIED 12/15/2010 [facility], [place] R 780.52 INSOMNIA UNSPECIFIED 12/15/2010 [facility], [place] R 780.52 INSOMNIA UNSPECIFIED 12/15/2010 [facility], [place] R 780.52 INSOMNIA UNSPECIFIED 12/15/2010 [facility], [place] R 780.52 INSOMNIA UNSPECIFIED 12/15/2010 [facility], [place] A 780.52 INSOMNIA UNSPECIFIED 12/15/2010 [facility], [place] R 780.52 INSOMNIA UNSPECIFIED 12/15/2010 KATERINE LOPEZ APRN 780.52 INSOMNIA UNSPECIFIED 12/15/2010 [facility], [place] R 780.52 INSOMNIA UNSPECIFIED 12/15/2010 [facility], [place] R 780.52 INSOMNIA UNSPECIFIED 12/15/2010 [facility], [place] R 780.52 INSOMNIA UNSPECIFIED 12/15/2010 KATERINE LOPEZ APRN 780.52 INSOMNIA UNSPECIFIED 12/15/2010 KATERINE LOPEZ APRN 780.52 INSOMNIA UNSPECIFIED 12/15/2010 KATERINE LOPEZ APRN 780.52 INSOMNIA UNSPECIFIED 12/15/2010 [facility], [place] R 780.52 INSOMNIA UNSPECIFIED 12/15/2010 [facility], [place] A 780.52 INSOMNIA UNSPECIFIED 12/15/2010 [facility], [place] R 780.52 INSOMNIA UNSPECIFIED 12/15/2010 [facility], [place] R 780.52 INSOMNIA UNSPECIFIED 12/15/2010 [facility], [place] R 780.52 INSOMNIA UNSPECIFIED 12/15/2010 [facility], [place] R 780.52 INSOMNIA UNSPECIFIED 12/15/2010 [facility], [place] A 780.52 INSOMNIA UNSPECIFIED 12/15/2010 [facility], YUSRA L 780.52 INSOMNIA UNSPECIFIED 12/15/2010 [facility], YUSRA L 780.52 INSOMNIA UNSPECIFIED 12/15/2010 [facility], YUSRA L 780.52 INSOMNIA UNSPECIFIED 12/15/2010 [facility] [facility], YUSRA L 780.52 INSOMNIA UNSPECIFIED 12/15/2010 [facility], [place] R 780.52 INSOMNIA UNSPECIFIED 12/15/2010 [facility], [place] R 780.52 INSOMNIA UNSPECIFIED 05/10/2011 V22.2 INCIDENTAL 05/10/2011 V22.2 INCIDENTAL 05/10/2011 V22.2 INCIDENTAL 05/10/2011 V22.2 INCIDENTAL 05/10/2011 V22.2 INCIDENTAL 05/10/2011 V22.2 INCIDENTAL 05/10/2011 V22.2 INCIDENTAL 05/10/2011 V22.2 INCIDENTAL 05/10/2011 V22.2 INCIDENTAL 05/10/2011 V22.2 INCIDENTAL 05/10/2011 KATERINE LOPEZ APRN V22.2 INCIDENTAL 05/10/2011 [facility], [place] R V22.2 INCIDENTAL 05/10/2011 [facility], [place] R V22.2 INCIDENTAL 05/10/2011 [facility], [place] R V22.2 INCIDENTAL 05/10/2011 [facility], [place] R V22.2 INCIDENTAL 05/10/2011 [facility] [place] [facility] V22.2 INCIDENTAL 05/10/2011 [facility] [facility] A V22.2 INCIDENTAL 05/10/2011 [facility], [place] R V22.2 INCIDENTAL 05/10/2011 KATERINE LOPEZ APRN D V22.2 INCIDENTAL 05/10/2011 [facility], [place] R V22.2 INCIDENTAL 05/10/2011 [facility], [place] R V22.2 INCIDENTAL 05/10/2011 [facility], [place] R V22.2 INCIDENTAL 05/10/2011 KATERINE LOPEZ APRN V22.2 INCIDENTAL 05/10/2011 KATERINE LOPEZ APRN V22.2 INCIDENTAL 05/10/2011 KATERINE LOPEZ APRN V22.2 INCIDENTAL 05/10/2011 [facility], [place] R V22.2 INCIDENTAL 05/10/2011 [facility], [place] A V22.2 INCIDENTAL 05/10/2011 [facility], [place] R V22.2 INCIDENTAL 05/10/2011 [facility], [place] R V22.2 INCIDENTAL 05/10/2011 [facility], [place] R V22.2 INCIDENTAL 05/10/2011 [facility], [place] R V22.2 INCIDENTAL 05/10/2011 [facility], [place] A V22.2 INCIDENTAL 05/10/2011 [facility], YUSRA L V22.2 INCIDENTAL 05/10/2011 [facility] [facility], YUSRA L V22.2 INCIDENTAL 05/10/2011 [facility] [facility], YUSRA L V22.2 INCIDENTAL 05/10/2011 [facility] [facility], YUSRA L V22.2 INCIDENTAL 05/10/2011 [facility], [place] R V22.2 INCIDENTAL 05/10/2011 [facility], [place] R V22.2 INCIDENTAL 06/08/2011 296.32 [...] D 296.32 MO DEPRESSIVE RECURRENT MODERATE 06/08/2011 [facility], [place] R 296.32 MO DEPRESSIVE RECURRENT MODERATE 06/08/2011 [facility], [place] R 296.32 MO DEPRESSIVE RECURRENT MODERATE 06/08/2011 [facility], [place] R 296.32 MO DEPRESSIVE RECURRENT MODERATE 06/08/2011 [facility], [place] R 296.32 MO DEPRESSIVE RECURRENT MODERATE 06/08/2011 [facility], [place] R 296.32 MO DEPRESSIVE RECURRENT MODERATE 06/08/2011 [facility] APRNIDI A 296.32 MO DEPRESSIVE RECURRENT MODERATE 06/08/2011 [facility], [place] R 296.32 MO DEPRESSIVE RECURRENT MODERATE 06/08/2011 KATERINE LOPEZ APRN 296.32 MO DEPRESSIVE RECURRENT MODERATE 06/08/2011 [facility], [place] R 296.32 MO DEPRESSIVE RECURRENT MODERATE 06/08/2011 [facility], [place] R 296.32 MO DEPRESSIVE RECURRENT MODERATE 06/08/2011 [facility], [place] R 296.32 MO DEPRESSIVE RECURRENT MODERATE 06/08/2011 KATERINE LOPEZ APRN 296.32 MO DEPRESSIVE RECURRENT MODERATE 06/08/2011 KATERINE LOPEZ APRN 296.32 MO DEPRESSIVE RECURRENT MODERATE 06/08/2011 KATERINE LOPEZ APRN 296.32 MO DEPRESSIVE RECURRENT MODERATE 06/08/2011 [facility], [place] R 296.32 MO DEPRESSIVE RECURRENT MODERATE 06/08/2011 [facility] VALDIVIA APRNIDI A 296.32 MO DEPRESSIVE RECURRENT MODERATE 06/08/2011 [facility], [place] R 296.32 MO DEPRESSIVE RECURRENT MODERATE 06/08/2011 [facility], [place] R 296.32 MO DEPRESSIVE RECURRENT MODERATE 06/08/2011 [facility], [place] R 296.32 MO DEPRESSIVE RECURRENT MODERATE 06/08/2011 [facility], [place] R 296.32 MO DEPRESSIVE RECURRENT MODERATE 06/08/2011 [facility], [place] A 296.32 MO DEPRESSIVE RECURRENT MODERATE 06/08/2011 [facility] [facility], YUSRA L 296.32 MO DEPRESSIVE RECURRENT MODERATE 06/08/2011 [facility] [employer] [facility], YUSRA L 296.32 MO DEPRESSIVE RECURRENT MODERATE 06/08/2011 [facility] [employer] [facility], YUSRA L 296.32 MO DEPRESSIVE RECURRENT MODERATE 06/08/2011 [facility] [facility], YUSRA L 296.32 MO DEPRESSIVE RECURRENT MODERATE 06/08/2011 [facility], [place] R 296.32 MO DEPRESSIVE RECURRENT MODERATE 06/08/2011 [facility], [place] R 296.32 MO DEPRESSIVE RECURRENT [...] KATERINE LOPEZ APRN 346.90 HEADACHE, MIGRAINE 11/16/2011 [facility], [place] R 307.81 HEADACHE, TENSION 11/16/2011 [facility], [place] R 346.90 HEADACHE, MIGRAINE 11/16/2011 [facility], [place] R 307.81 HEADACHE, TENSION 11/16/2011 [facility], [place] R 346.90 HEADACHE, MIGRAINE 11/16/2011 [facility], [place] R 307.81 HEADACHE, TENSION 11/16/2011 [facility], [place] R 346.90 HEADACHE, MIGRAINE 11/16/2011 [facility], [place] R 307.81 HEADACHE, TENSION 11/16/2011 [facility], [place] R 346.90 HEADACHE, MIGRAINE 11/16/2011 [facility], [place] R 307.81 HEADACHE, TENSION 11/16/2011 [facility], [place] R 346.90 HEADACHE, MIGRAINE 11/16/2011 [facility], [place] A 307.81 HEADACHE, TENSION 11/16/2011 [facility], [place] A 346.90 HEADACHE, MIGRAINE 11/16/2011 [facility] [...] MATTHIEU R 346.90 HEADACHE, MIGRAINE 11/16/2011 [facility], [place] A 307.81 HEADACHE, TENSION 11/16/2011 [facility], [place] A 346.90 HEADACHE, MIGRAINE 11/16/2011 [facility] [...] [place]U R 346.90 HEADACHE, MIGRAINE 11/16/2011 [facility], OH A 307.81 HEADACHE, TENSION 11/16/2011 [facility], [place] A 346.90 HEADACHE, MIGRAINE 11/16/2011 [facility], YUSRA L 307.81 HEADACHE, TENSION 11/16/2011 [facility] [employer] [facility]ATE, YUSRA L 346.90 HEADACHE, MIGRAINE 11/16/2011 [facility] [employer] [facility]ATE, YUSRA L 307.81 HEADACHE, TENSION 11/16/2011 [facility] [employer] [facility]ATE, YUSRA L 346.90 HEADACHE, MIGRAINE 11/16/2011 [facility] [employer]ATE, YUSRA L 307.81 HEADACHE, TENSION 11/16/2011 [facility] [employer] [facility]ATE, YUSRA L 346.90 HEADACHE, MIGRAINE 11/16/2011 [facility] [employer] [facility]IATE, YUSRA L 307.81 HEADACHE, TENSION 11/16/2011 [facility] [employer] [facility]ATE, YUSRA L 346.90 HEADACHE, MIGRAINE 11/16/2011 [facility] [...] 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, [place] R 296.33 MO 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, [place] R 296.33 MO 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, [place] R 296.33 MO 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, [place] R 296.33 MO 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, [place] R 296.33 MO DEPRESSIVE RECURRENT SEVERE W/O PSYCHOTIC BEHAVIOR 11/23/2011 [place] [facility] APRN 296.33 MO 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, [place] R 296.33 MO DEPRESSIVE RECURRENT SEVERE W/O PSYCHOTIC BEHAVIOR 11/23/2011 KATERINE LOPEZ APRN 296.33 MO 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, [place] R 296.33 MO 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, [place] R 296.33 MO 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, [place] R 296.33 MO DEPRESSIVE RECURRENT SEVERE W/O PSYCHOTIC BEHAVIOR 11/23/2011 KATERINE LOPEZ APRN 296.33 MO DEPRESSIVE RECURRENT SEVERE W/O PSYCHOTIC BEHAVIOR 11/23/2011 KATERINE LOPEZ APRN 296.33 MO DEPRESSIVE RECURRENT SEVERE W/O PSYCHOTIC BEHAVIOR 11/23/2011 KATERINE LOPEZ APRN 296.33 MO 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, [place] R 296.33 MO DEPRESSIVE RECURRENT SEVERE W/O PSYCHOTIC BEHAVIOR 11/23/2011 [facility], [place] A 296.33 MO 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, [place] R 296.33 MO 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, [place] R 296.33 MO 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, [place] R 296.33 MO 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, [place] R 296.33 MO DEPRESSIVE RECURRENT SEVERE W/O PSYCHOTIC BEHAVIOR 11/23/2011 [facility], [place] A 296.33 MO DEPRESSIVE RECURRENT SEVERE W/O PSYCHOTIC BEHAVIOR 11/23/2011 [facility], YUSRA L 296.33 MO DEPRESSIVE RECURRENT SEVERE W/O PSYCHOTIC BEHAVIOR 11/23/2011 [facility] [employer] [facility]ATE, YUSRA L 296.33 MO DEPRESSIVE RECURRENT SEVERE W/O PSYCHOTIC BEHAVIOR 11/23/2011 [facility] [employer] [facility]ATE, YUSRA L 296.33 MO DEPRESSIVE RECURRENT SEVERE W/O PSYCHOTIC BEHAVIOR 11/23/2011 [facility] [employer] [facility]ATE, YUSRA L 296.33 MO 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, [place] R 296.33 MO 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, [place] R 296.33 MO DEPRESSIVE RECURRENT [...] LOPEZ APRN 300.02 AN GEN ANXIETY 01/24/2012 [facility], [place] R 300.02 AN GEN ANXIETY 01/24/2012 [facility], [place] R 300.02 AN GEN ANXIETY 01/24/2012 [facility], [place] R 300.02 AN GEN ANXIETY 01/24/2012 [facility], [place] R 300.02 AN GEN ANXIETY 01/24/2012 [facility], [place] R 300.02 AN GEN ANXIETY 01/24/2012 [facility], [place] A 300.02 AN GEN ANXIETY 01/24/2012 [facility], [place] R 300.02 AN GEN ANXIETY 01/24/2012 KATERINE LOPEZ APRN 300.02 AN GEN ANXIETY 01/24/2012 [facility], [place] R 300.02 AN GEN ANXIETY 01/24/2012 [facility], [place] R 300.02 AN GEN ANXIETY 01/24/2012 [facility], [place] R 300.02 AN GEN ANXIETY 01/24/2012 KATERINE LOPEZ APRN 300.02 AN GEN ANXIETY 01/24/2012 KATERINE LOPEZ APRN 300.02 AN GEN ANXIETY 01/24/2012 KATERINE LOPEZ APRN 300.02 AN GEN ANXIETY 01/24/2012 [facility], [place] R 300.02 AN GEN ANXIETY 01/24/2012 [facility] VALDIVIA APRNIDI A 300.02 AN GEN ANXIETY 01/24/2012 [facility], [place] R 300.02 AN GEN ANXIETY 01/24/2012 [facility], [place] R 300.02 AN GEN ANXIETY 01/24/2012 [facility], [place] R 300.02 AN GEN ANXIETY 01/24/2012 [facility], [place] R 300.02 AN GEN ANXIETY 01/24/2012 [facility], [place] A 300.02 AN GEN ANXIETY 01/24/2012 [facility], YUSRA L 300.02 AN GEN ANXIETY 01/24/2012 [facility], YUSRA L 300.02 AN GEN ANXIETY 01/24/2012 [facility] [employer] [facility]ATE, YUSRA L 300.02 AN GEN ANXIETY 01/24/2012 [facility] [employer] [facility]ATE, YUSRA L 300.02 AN GEN ANXIETY 01/24/2012 [facility], [place] R 300.02 AN GEN ANXIETY 01/24/2012 [facility], [place] R 300.02 AN GEN ANXIETY [...] V76.2 CERVICAL CANCER SCREENING (PAP SMEAR) 12/21/2012 [facility].01 TRICHOMONAL VULVOVAGINITIS 12/21/2012 [facility] V73.81 HPV SCREENING 12/21/2012 [facility] V76.10 BREAST CANCER SCREENING 12/21/2012 [facility] V76.2 CERVICAL CANCER SCREENING (PAP SMEAR) 12/21/2012 [facility] 131.01 TRICHOMONAL VULVOVAGINITIS 12/21/2012 [facility], [place] R V73.81 HPV SCREENING 12/21/2012 [facility], [place] R V76.10 BREAST CANCER SCREENING 12/21/2012 [facility], [place] R V76.2 CERVICAL CANCER SCREENING (PAP SMEAR) 12/21/2012 [facility], [place] R 131.01 TRICHOMONAL VULVOVAGINITIS 12/21/2012 [facility], [place] R V73.81 HPV SCREENING 12/21/2012 [facility], [place] R V76.10 BREAST CANCER SCREENING 12/21/2012 [facility], [place] R V76.2 CERVICAL CANCER SCREENING (PAP SMEAR) 12/21/2012 [facility], [place] R 131.01 TRICHOMONAL VULVOVAGINITIS 12/21/2012 [facility], [place] R V73.81 HPV SCREENING 12/21/2012 [facility], [place] R V76.10 BREAST CANCER SCREENING 12/21/2012 [facility], [place] R V76.2 CERVICAL CANCER SCREENING (PAP SMEAR) 12/21/2012 [facility], [place] R 131.01 TRICHOMONAL VULVOVAGINITIS 12/21/2012 [facility], [place] R V73.81 HPV SCREENING 12/21/2012 [facility], [place] R V76.10 BREAST CANCER SCREENING 12/21/2012 [facility], [place] R V76.2 CERVICAL CANCER SCREENING (PAP SMEAR) 12/21/2012 SKIP WILSON, [place] A 131.01 TRICHOMONAL VULVOVAGINITIS 12/21/2012 SKIP WILSON, [place] A V73.81 HPV SCREENING 12/21/2012 [employer], [place] A V76.10 BREAST CANCER SCREENING 12/21/2012 [employer], [place] A V76.2 CERVICAL CANCER SCREENING (PAP SMEAR) 12/21/2012 [facility], [place] R 131.01 TRICHOMONAL VULVOVAGINITIS 12/21/2012 [facility], [place] R V73.81 HPV SCREENING 12/21/2012 [facility], [place] R V76.10 BREAST CANCER SCREENING 12/21/2012 [facility], [place] R V76.2 CERVICAL CANCER SCREENING (PAP SMEAR) 12/21/2012 KATERINE LOPEZ APRN 131.01 TRICHOMONAL VULVOVAGINITIS 12/21/2012 KATERINE LOPEZ APRN V73.81 HPV SCREENING 12/21/2012 KATERINE LOPEZ APRN V76.10 BREAST CANCER SCREENING 12/21/2012 KATERINE LOPEZ APRN V76.2 CERVICAL CANCER SCREENING (PAP SMEAR) 12/21/2012 [facility], [place] R 131.01 TRICHOMONAL VULVOVAGINITIS 12/21/2012 [facility], [place] R V73.81 HPV SCREENING 12/21/2012 [facility], [place] R V76.10 BREAST CANCER SCREENING 12/21/2012 [facility], [place] R V76.2 CERVICAL CANCER SCREENING (PAP SMEAR) 12/21/2012 [facility], [place] R 131.01 TRICHOMONAL VULVOVAGINITIS 12/21/2012 [facility], [place] R V73.81 HPV SCREENING 12/21/2012 [facility], [place] R V76.10 BREAST CANCER SCREENING 12/21/2012 [facility], [place] R V76.2 CERVICAL CANCER SCREENING (PAP SMEAR) 12/21/2012 [facility], [place] R 131.01 TRICHOMONAL VULVOVAGINITIS 12/21/2012 [facility], [place] R V73.81 HPV SCREENING 12/21/2012 [facility], [place] R V76.10 BREAST CANCER SCREENING 12/21/2012 [facility], [place] R V76.2 CERVICAL CANCER SCREENING [...] V76.2 CERVICAL CANCER SCREENING (PAP SMEAR) 12/21/2012 [facility], [place] R 131.01 TRICHOMONAL VULVOVAGINITIS 12/21/2012 [facility], [place] R V73.81 HPV SCREENING 12/21/2012 [facility], [place] R V76.10 BREAST CANCER SCREENING 12/21/2012 [facility], [place] R V76.2 CERVICAL CANCER SCREENING (PAP SMEAR) 12/21/2012 SKPI WILSON, [place] A 131.01 TRICHOMONAL VULVOVAGINITIS 12/21/2012 SKIP WILSON, [place] A V73.81 HPV SCREENING 12/21/2012 SKIP WILSON, [place] A V76.10 BREAST CANCER SCREENING 12/21/2012 SKIP WIL[place], [place] A V76.2 CERVICAL CANCER SCREENING (PAP SMEAR) 12/21/2012 [facility], [place] R 131.01 TRICHOMONAL VULVOVAGINITIS 12/21/2012 [facility], [place] R V73.81 HPV SCREENING 12/21/2012 [facility], [place] R V76.10 BREAST CANCER SCREENING 12/21/2012 [facility], [place] R V76.2 CERVICAL CANCER SCREENING (PAP SMEAR) 12/21/2012 [facility], [place] R 131.01 TRICHOMONAL VULVOVAGINITIS 12/21/2012 [facility], [place] R V73.81 HPV SCREENING 12/21/2012 [facility], [place] R V76.10 BREAST CANCER SCREENING 12/21/2012 [facility], [place] R V76.2 CERVICAL CANCER SCREENING (PAP SMEAR) 12/21/2012 [facility], [place] R 131.01 TRICHOMONAL VULVOVAGINITIS 12/21/2012 [facility], [place] R V73.81 HPV SCREENING 12/21/2012 [facility], [place] R V76.10 BREAST CANCER SCREENING 12/21/2012 [facility], [place] R V76.2 CERVICAL CANCER SCREENING (PAP SMEAR) 12/21/2012 [facility], [place] R 131.01 TRICHOMONAL VULVOVAGINITIS 12/21/2012 [facility], [place] R V73.81 HPV SCREENING 12/21/2012 [facility], [place] R V76.10 BREAST CANCER SCREENING 12/21/2012 [facility], [place] R V76.2 CERVICAL CANCER SCREENING (PAP SMEAR) 12/21/2012 [facility] BILLING ASSOCIATE, [place] A 131.01 TRICHOMONAL VULVOVAGINITIS 12/21/2012 [facility] BILLING ASSOCIATE, [place] A V73.81 HPV SCREENING 12/21/2012 [employer] BILLING ASSOCIATE, [place] A V76.10 BREAST CANCER SCREENING 12/21/2012 SK[facility] MED[employer] BILLING ASSOCIATE, [place] A V76.2 CERVICAL CANCER SCREENING (PAP SMEAR) 12/21/2012 [facility] BILLING ASSOCIATE, YUSRA L 131.01 TRICHOMONAL VULVOVAGINITIS 12/21/2012 [employer] MEDICAL BILLING ASSOCIATE, YUSRA L V73.81 HPV SCREENING 12/21/2012 M[employer] MEDICAL BILLING ASSOCIATE, YUSRA L V76.10 BREAST CANCER SCREENING 12/21/2012 M[facility] MEDICAL BILLING ASSOCIATE, YUSRA L V76.2 CERVICAL CANCER SCREENING (PAP SMEAR) 12/21/2012 [facility] MEDICAL BILLING ASSOCIATE, YUSRA L 131.01 TRICHOMONAL VULVOVAGINITIS 12/21/2012 [facility] MEDICAL BILLING ASSOCIATE, YUSRA L V73.81 HPV SCREENING 12/21/2012 MADL MEDICAL BILLING ASSOCIATE, YUSRA L V76.10 BREAST CANCER SCREENING 12/21/2012 MAD[facility] MEDICAL BILLING ASSOCIATE, YUSRA L V76.2 CERVICAL CANCER SCREENING (PAP SMEAR) 12/21/2012 M[employer] MEDICAL BILLING ASSOCIATE, YUSRA L 131.01 TRICHOMONAL VULVOVAGINITIS 12/21/2012 M[facility] MEDICAL BILLING ASSOCIATE, YUSRA L V73.81 HPV SCREENING 12/21/2012 MADL MEDICAL BILLING ASSOCIATE, YUSRA L V76.10 BREAST CANCER SCREENING 12/21/2012 MAD[facility] MEDICAL BILLING ASSOCIATE, YUSRA L V76.2 CERVICAL CANCER SCREENING (PAP SMEAR) 12/21/2012 [facility] BILLING ASSOCIATE, YUSRA L 131.01 TRICHOMONAL VULVOVAGINITIS 12/21/2012 OSIRISL MEDICAL BILLING ASSOCIATE, YUSRA L V73.81 HPV SCREENING 12/21/2012 OSIR[facility]L MEDICAL BILLING ASSOCIATE, YUSRA L V76.10 BREAST CANCER SCREENING 12/21/2012 OSIRISL MEDICAL BILLING ASSOCIATE, YUSRA L V76.2 CERVICAL CANCER SCREENING (PAP SMEAR) 12/21/2012 [facility], [place] R 131.01 TRICHOMONAL VULVOVAGINITIS 12/21/2012 [facility], [place] R V73.81 HPV SCREENING 12/21/2012 [facility], [place] R V76.10 BREAST CANCER SCREENING 12/21/2012 [facility], [place] R V76.2 CERVICAL CANCER SCREENING (PAP SMEAR) 12/21/2012 [facility], [place] R 131.01 TRICHOMONAL VULVOVAGINITIS 12/21/2012 [facility], [place] R V73.81 HPV SCREENING 12/21/2012 [facility], [place] R V76.10 BREAST CANCER SCREENING 12/21/2012 [facility], [place] R V76.2 CERVICAL CANCER SCREENING (PAP SMEAR) 02/15/2013 692.9 CONTACT DERMATITIS AND OTHER ECZEMA UNSPECIFIED CAUSE 02/15/2013 692.9 CONTACT DERMATITIS AND OTHER ECZEMA UNSPECIFIED CAUSE 02/15/2013 692.9 CONTACT DERMATITIS AND OTHER ECZEMA UNSPECIFIED CAUSE 02/15/2013 692.9 CONTACT DERMATITIS AND OTHER ECZEMA UNSPECIFIED CAUSE 02/15/2013 KATERINE LOPEZ APRN 692.9 CONTACT DERMATITIS AND OTHER ECZEMA UNSPECIFIED CAUSE 02/15/2013 [facility], [place] R 692.9 CONTACT DERMATITIS AND OTHER ECZEMA UNSPECIFIED CAUSE 02/15/2013 [facility], [place] R 692.9 CONTACT DERMATITIS AND OTHER ECZEMA UNSPECIFIED CAUSE 02/15/2013 [facility], [place] R 692.9 CONTACT DERMATITIS AND OTHER ECZEMA UNSPECIFIED CAUSE 02/15/2013 [facility], [place] R 692.9 CONTACT DERMATITIS AND OTHER ECZEMA UNSPECIFIED CAUSE 02/15/2013 [facility], [place] R 692.9 CONTACT DERMATITIS AND OTHER ECZEMA UNSPECIFIED CAUSE 02/15/2013 [place] VALDIVIA APRN 692.9 CONTACT DERMATITIS AND OTHER ECZEMA UNSPECIFIED CAUSE 02/15/2013 [facility], [place] R 692.9 CONTACT DERMATITIS AND OTHER ECZEMA UNSPECIFIED CAUSE 02/15/2013 [facility] BILL[facility] ASSOCIATEKARLOSTH D 692.9 CONTACT DERMATITIS AND OTHER ECZEMA UNSPECIFIED CAUSE 02/15/2013 [facility], [place] R 692.9 CONTACT DERMATITIS AND OTHER ECZEMA UNSPECIFIED CAUSE 02/15/2013 [facility], [place] R 692.9 CONTACT DERMATITIS AND OTHER ECZEMA UNSPECIFIED CAUSE 02/15/2013 [facility], [place] R 692.9 CONTACT DERMATITIS AND OTHER ECZEMA UNSPECIFIED CAUSE 02/15/2013 [facility] BILL[employer] ASSOCIATE, KATERINE D 692.9 CONTACT DERMATITIS AND OTHER ECZEMA UNSPECIFIED CAUSE 02/15/2013 [facility] BILLING ASSOCIATE, KATERINE D 692.9 CONTACT DERMATITIS AND OTHER ECZEMA UNSPECIFIED CAUSE 02/15/2013 [facility] BILLING ASSOCIATE, KATERINE D 692.9 CONTACT DERMATITIS AND OTHER ECZEMA UNSPECIFIED CAUSE 02/15/2013 [facility], [place] R 692.9 CONTACT DERMATITIS AND OTHER ECZEMA UNSPECIFIED CAUSE 02/15/2013 SK[facility] [employer] BILLING ASSOCIATE, [place] A 692.9 CONTACT DERMATITIS AND OTHER ECZEMA UNSPECIFIED CAUSE 02/15/2013 [facility], [place] R 692.9 CONTACT DERMATITIS AND OTHER ECZEMA UNSPECIFIED CAUSE 02/15/2013 [facility], [place] R 692.9 CONTACT DERMATITIS AND OTHER ECZEMA UNSPECIFIED CAUSE 02/15/2013 [facility], [place] R 692.9 CONTACT DERMATITIS AND OTHER ECZEMA UNSPECIFIED CAUSE 02/15/2013 [facility], [place] R 692.9 CONTACT DERMATITIS AND OTHER ECZEMA UNSPECIFIED CAUSE 02/15/2013 SK[facility] [employer] BILLING ASSOCIATE, [place] A 692.9 CONTACT DERMATITIS AND OTHER ECZEMA UNSPECIFIED CAUSE 02/15/2013 [facility] MEDICAL BILLING ASSOCIATE, YUSRA L 692.9 CONTACT DERMATITIS AND OTHER ECZEMA UNSPECIFIED CAUSE 02/15/2013 [facility] MEDICAL BILLING ASSOCIATE, YUSRA L 692.9 CONTACT DERMATITIS AND OTHER ECZEMA UNSPECIFIED CAUSE 02/15/2013 M[facility] MEDICAL BILLING ASSOCIATE, YUSRA L 692.9 CONTACT DERMATITIS AND OTHER ECZEMA UNSPECIFIED CAUSE 02/15/2013 M[facility] MEDICAL BILLING ASSOCIATE, YUSRA L 692.9 CONTACT DERMATITIS AND OTHER ECZEMA UNSPECIFIED CAUSE 02/15/2013 [facility], [place] R 692.9 CONTACT DERMATITIS AND OTHER ECZEMA UNSPECIFIED CAUSE 02/15/2013 [facility], [place] R 692.9 CONTACT DERMATITIS AND OTHER ECZEMA UNSPECIFIED CAUSE 07/30/2013 [employer] [employer] BILLING ASSOCIATE, [place] A V25.01 CONTRACEPTION - ORAL CONTRACEPTION 07/30/2013 [facility], [place] V25.01 CONTRACEPTION - ORAL CONTRACEPTION 07/30/2013 KATERINE LOPEZ APRN V25.01 CONTRACEPTION - ORAL CONTRACEPTION 07/30/2013 [facility], [place] V25.01 CONTRACEPTION - ORAL CONTRACEPTION 07/30/2013 [facility], [place] R V25.01 CONTRACEPTION - ORAL CONTRACEPTION 07/30/2013 [facility], [place] V25.01 CONTRACEPTION - ORAL CONTRACEPTION 07/30/2013 KATERINE LOPEZ APRN V25.01 CONTRACEPTION - ORAL CONTRACEPTION 07/30/2013 KATERINE LOPEZ APRN V25.01 CONTRACEPTION - ORAL CONTRACEPTION 07/30/2013 KATERINE LOPEZ APRN V25.01 CONTRACEPTION - ORAL CONTRACEPTION 07/30/2013 [facility], [place] V25.01 CONTRACEPTION - ORAL CONTRACEPTION 07/30/2013 SKIP W[place], [place] A V25.01 CONTRACEPTION - ORAL CONTRACEPTION 07/30/2013 [facility], [place] V25.01 CONTRACEPTION - ORAL CONTRACEPTION 07/30/2013 [facility], [place] V25.01 CONTRACEPTION - ORAL CONTRACEPTION 07/30/2013 [facility], [place] V25.01 CONTRACEPTION - ORAL CONTRACEPTION 07/30/2013 [facility], [place] V25.01 CONTRACEPTION - ORAL CONTRACEPTION 07/30/2013 SKIP [place], [place] A V25.01 CONTRACEPTION - ORAL CONTRACEPTION 07/30/2013 [facility] MEDICAL BILLING ASSOCIATE, YUSRA L V25.01 CONTRACEPTION - ORAL CONTRACEPTION 07/30/2013 [facility] BILLING ASSOCIATE, YUSRA L V25.01 CONTRACEPTION - ORAL CONTRACEPTION 07/30/2013 M[facility] MEDICAL BILLING ASSOCIATE, YUSRA L V25.01 CONTRACEPTION - ORAL CONTRACEPTION 07/30/2013 M[facility] MEDICAL BILLING ASSOCIATE, YUSRA L V25.01 CONTRACEPTION - ORAL CONTRACEPTION 07/30/2013 [facility], [place] R V25.01 CONTRACEPTION - ORAL CONTRACEPTION 07/30/2013 [facility], [place] V25.01 CONTRACEPTION - ORAL CONTRACEPTION 11/27/2013 SK[facility] BILLING ASSOCIATE, [place] A V74.5 STD SCREEN 11/27/2013 [facility], [place] V74.5 STD SCREEN 11/27/2013 [facility], [place] V74.5 STD SCREEN 11/27/2013 [facility], [place] V74.5 STD SCREEN 11/27/2013 [facility], [place] V74.5 STD SCREEN 11/27/2013 [facility] BILLING ASSOCIATE, [place] A V74.5 STD SCREEN 11/27/2013 [facility] BILLING ASSOCIATE, YUSRA L V74.5 STD SCREEN 11/27/2013 [facility] MEDICAL BILLING ASSOCIATE, YUSRA L V74.5 STD SCREEN 11/27/2013 M[facility] MEDICAL BILLING ASSOCIATE, YUSRA L V74.5 STD SCREEN 11/27/2013 M[facility] MEDICAL BILLING ASSOCIATE, YUSRA L V74.5 STD SCREEN 11/27/2013 [facility], [place] V74.5 STD SCREEN 11/27/2013 [facility], [place] V74.5 STD SCREEN 12/11/2013 [facility], [place] R 296.35 MO DEPRESSIVE RECURRENT IN PART OR UNSPECIFIED REMISSION 12/11/2013 [facility], [place] R 296.35 MO DEPRESSIVE RECURRENT IN PART OR UNSPECIFIED REMISSION 12/11/2013 [facility], [place] R 296.35 MO DEPRESSIVE RECURRENT IN PART OR UNSPECIFIED REMISSION 12/11/2013 [facility], [place] R 296.35 MO DEPRESSIVE RECURRENT IN PART OR UNSPECIFIED REMISSION 12/11/2013 SK[facility] BILLING ASSOCIATE, [place] A 296.35 MO DEPRESSIVE RECURRENT IN PART OR UNSPECIFIED REMISSION 12/11/2013 [facility] MED[facility] BILLING ASSOCIATE, YUSRA L 296.35 MO DEPRESSIVE RECURRENT IN PART OR UNSPECIFIED REMISSION 12/11/2013 [facility] MEDICAL BILLING ASSOCIATE, YUSRA L 296.35 MO DEPRESSIVE RECURRENT IN PART OR UNSPECIFIED REMISSION 12/11/2013 [facility] MEDICAL BILLING ASSOCIATE, YUSRA L 296.35 MO DEPRESSIVE RECURRENT IN PART OR UNSPECIFIED REMISSION 12/11/2013 [facility] MEDICAL BILLING ASSOCIATE, YUSRA L 296.35 MO DEPRESSIVE RECURRENT IN PART OR UNSPECIFIED REMISSION 12/11/2013 [facility], [place] 296.35 MO DEPRESSIVE RECURRENT IN PART OR UNSPECIFIED REMISSION 12/11/2013 [facility], [place] R 296.35 MO DEPRESSIVE RECURRENT IN PART OR UNSPECIFIED REMISSION 02/21/2014 [facility], [place] R 296.31 MO DEPRESSIVE RECURRENT MILD 02/21/2014 [facility], [place] R 296.31 MO DEPRESSIVE RECURRENT MILD 02/21/2014 [facility] BILLING ASSOCIATE, [place] A 296.31 MO DEPRESSIVE RECURRENT MILD 02/21/2014 [facility] BILLING ASSOCIATE, YUSRA L 296.31 MO DEPRESSIVE RECURRENT MILD 02/21/2014 M[facility] MEDICAL BILLING ASSOCIATE, YUSRA L 296.31 MO DEPRESSIVE RECURRENT MILD 02/21/2014 [facility] MEDICAL BILLING ASSOCIATE, YUSRA L 296.31 MO DEPRESSIVE RECURRENT MILD 02/21/2014 M[facility] MEDICAL BILLING ASSOCIATE, YUSRA L 296.31 MO DEPRESSIVE RECURRENT MILD 02/21/2014 [facility], [place] 296.31 MO DEPRESSIVE RECURRENT MILD 02/21/2014 [facility], [place] 296.31 MO DEPRESSIVE RECURRENT MILD 08/09/2014 Ot V22.2 08/09/2014 BELEM LANGLEY, ALONDRA Frye Ot 246.9 DISORDER OF THYROID NOS 08/09/2014 BELEM LANGLEY, ALONDRA T Ot 458.0 ORTHOSTATIC HYPOTENSION 08/09/2014 ALODNRA PATRICIA MD T Ot 780.2 SYNCOPE AND COLLAPSE 08/09/2014 ALONDRA PATRICIA MD T Ot 780.79 OTH MALAISE FATIGUE 08/12/2014 [facility] MED[facility] BILLING ASSOCIATE, YUSRA L 780.79 FATIGUE 08/12/2014 [facility] MEDICAL BILLING ASSOCIATE, YUSRA L 780.79 FATIGUE 08/12/2014 [facility] MEDICAL BILLING ASSOCIATE, YUSRA L 780.79 FATIGUE 08/12/2014 [facility] MEDICAL BILLING ASSOCIATE, YUSRA L 780.79 FATIGUE 08/12/2014 [facility], [place] 780.79 FATIGUE 08/12/2014 [facility], [place] 780.79 FATIGUE 08/12/2014 ALONDRA PATRICIA MD T Ot 246.9 08/12/2014 ALONDRA PATRICIA MD T Ot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
[2017-09-29] MEDS ORDERED: BUSP10TA95 (03:20)
[2017-09-29] MEDS ORDERED: TIZA4TAB3 (03:20)
[2017-09-29] MEDS ORDERED: HYDR-3584 (03:20)
[2017-09-29 04:47] LABS: BASOPHILS # (AUTO) 0.1 10^3/uL (0.0-0.1); BASOPHILS % (AUTO) 1 % (0-10); EOSINOPHILS # (AUTO) 0.2 10^3/uL (0.0-0.3); EOSINOPHILS % (AUTO) 3 % (0-10); HEMATOCRIT 35 % (35-52); HEMOGLOBIN 11.5 G/DL (11.5-16.0); LYMPHOCYTES % (AUTO) 24 % (12-44); MEAN CORPUSCULAR HEMOGLOBIN 24 PG (25-34); MEAN CORPUSCULAR HGB CONC 33 G/DL (32-36); MEAN CORPUSCULAR VOLUME 75 FL (80-99); MEAN PLATELET VOLUME 9.8 FL (7.4-10.4); MONOCYTES # (AUTO) 0.9 X 10^3 (0.0-1.0); MONOCYTES % (AUTO) 11 % (0-12); NEUTROPHILS # (AUTO) 5.1 X 10^3 (1.8-7.8); NEUTROPHILS % (AUTO) 61 % (42-75); PLATELET COUNT 384 10^3/uL (130-400); RED BLOOD COUNT 4.73 10^6/uL (4.35-5.85); RED CELL DISTRIBUTION WIDTH 13.7 % (10.0-14.5); WHITE BLOOD COUNT 8.3 10^3/uL (4.3-11.0)
[2017-09-29 05:05] LABS: ERYTHROCYTE SEDIMENTATION RATE 13 MM/HR (0-20)
[2017-09-29 05:06] LABS: ALANINE AMINOTRANSFERASE 32 U/L (0-55); ALBUMIN 4.4 GM/DL (3.2-4.5); ALKALINE PHOSPHATASE 71 U/L (40-136); BILIRUBIN,TOTAL 0.6 MG/DL (0.1-1.0); BUN/CREATININE RATIO 14; CALCIUM 9.2 MG/DL (8.5-10.1); CARBON DIOXIDE 25 MMOL/L (21-32); CHLORIDE 101 MMOL/L (98-107); CREATINE KINASE 45 U/L (29-168); CREATININE SERUM 0.77 MG/DL (0.60-1.30); GFR ESTIMATED > 60; GLUCOSE 110 MG/DL (70-105); MAGNESIUM 2.1 MG/DL (1.8-2.4); POTASSIUM 3.3 MMOL/L (3.6-5.0); SODIUM 134 MMOL/L (135-145); TOTAL PROTEIN 7.6 GM/DL (6.4-8.2)
[2017-09-29 05:10] LABS: BILIRUBIN,URINE NEGATIVE (NEGATIVE); COLOR,URINE YELLOW; GLUCOSE, URINE (UA) NEGATIVE (NEGATIVE); KETONES,URINE 1+ (NEGATIVE); LEUKOCYTE ESTERASE ,URINE 1+ (NEGATIVE); NITRITE,URINE NEGATIVE (NEGATIVE); PH,URINE 6.5 (5-9); PROTEIN,URINE 1+ (NEGATIVE); UROBILINOGEN,URINE 4 MG/DL (NORMAL)
[2017-09-29 05:16] LABS: CLARITY,URINE SLIGHTLY CLOUDY
[2017-09-29 05:17] LABS: BACTERIA,URINE FEW /HPF; RBC,URINE RARE /HPF; SQUAMOUS EPITHELIAL CELL,UR >50 /HPF; WBC,URINE RARE /HPF
[2017-09-29 05:18] LABS: AMPHETAMINE SCREEN, URINE NEGATIVE (NEGATIVE); BARBITURATE SCREEN URINE NEGATIVE (NEGATIVE); BENZODIAZEPINES SCREEN URINE NEGATIVE (NEGATIVE); CANNABINOID SCREEN, URINE NEGATIVE (NEGATIVE); COCAINE SCREEN URINE NEGATIVE (NEGATIVE); METHADONE STAT NEGATIVE (NEGATIVE); METHAMPHETAMINE SCREEN URINE S NEGATIVE (NEGATIVE); OPIATE SCREEN URINE POSITIVE (NEGATIVE); OXYCODONE STAT NEGATIVE (NEGATIVE); PROPOXYPHENE STAT NEGATIVE (NEGATIVE); TRICYCLIC ANTIDEPRESSANTS SCRE NEGATIVE (NEGATIVE)
[2017-09-29] MEDS ORDERED: NS IV 1000 ML 1,000 ML ONE (05:54)
[2017-09-29] MEDS ORDERED: NS IV 1000 ML 1,000 ML IV SCH ×2 (05:55→07:26)
--- NOTE | 2017-09-29 06:56 | ED General ---
General Chief Complaint: General Problems/Pain Stated Complaint: ACHING ALL OVER,CAN BARELY WALK Nursing Triage Note: pt presents to er with complaint of difficulty walking and pain all over. states she was in the hospital in [place] a week ago. Nursing Sepsis Screen: No Definite Risk Source of Information: Patient Exam Limitations: No Limitations (ALONDRA PATRICIA MD) History of Present Illness Date Seen by Provider: Sep 29, 2017 Time Seen by Provider: 02:41 Initial Comments This 42-year-old woman presents to the emergency room with complaints of diffuse pain, weakness, and shakiness. She states this is been progressive over the past couple of months. She has been undergoing significant family and social stressors. Her 8-year-old was recently removed from her care and placed in to state custody. Patient was admitted for overdose on July 25. She denies correlation of symptoms with any of her medications. She does report a history of fibromyalgia. She was seen over a week ago at a hospital in [place]. She had an extensive workup including lab work, imaging, and lumbar puncture, and she brings the floor with those results with her. There were no major abnormalities appreciated on review of these records. (ALONDRA PATRICIA MD) Allergies and Home Medications Allergies Coded Allergies: Sulfa (Sulfonamide Antibiotics) (Verified Allergy, Unknown, 11/21/16) amoxicillin (Verified Allergy, Unknown, RASH, 07/26/16) Home Medications Cholecalciferol (Vitamin D3) 1,000 Unit Capsule, 1,000 UNIT PO DAILY, (Reported) Duloxetine HCl 60 Mg Capsule.dr, 120 MG PO DAILY, (Reported) TAKES 2 (60 MG) CAPSULES Multivitamin 1 Each Tablet, 1 TAB PO DAILY, (Reported) Vitamin E 400 Unit Capsule, 400 UNIT PO DAILY, (Reported) Patient Home Medication List Home Medication List Reviewed: Yes (ALONDRA PATRICIA MD) Constitutional: see HPI EENTM: no symptoms reported Respiratory: no symptoms reported Cardiovascular: no symptoms reported Gastrointestinal: no symptoms reported Genitourinary: no symptoms reported 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: see HPI Skin: no symptoms reported Psychiatric/Neurological: See HPI Hematologic/Lymphatic: No Symptoms Reported (ALONDRA PATRICIA MD) Past Tangbzo-Wxrglu-Nahwcm Hx Patient Social History Alcohol Use: Denies Use Recreational Drug Use: No Smoking Status: Never a Smoker Recent Foreign Travel: No Contact w/Someone Who Travel: No Recent Infectious Disease Expo: No Recent Hopitalizations: No (ALONDRA PATRICIA MD) Immunizations Up To Date Tetanus Booster (TDap): Unknown Date of Influenza Vaccine: Apr 25, 2016 (ALONDRA PATRICIA MD) Seasonal Allergies Seasonal Allergies: No (ALONDRA PATRICIA MD) Surgeries History of Surgeries: Yes (COLONOSCOPY, ENDOSCOPY) Surgeries: Hysterectomy (ALONDRA PATRICIA MD) Respiratory History of Respiratory Disorde: No (ALONDRA PATRICIA MD) Cardiovascular History of Cardiac Disorders: No (ALONDRA PATRICIA MD) Neurological History of Neurological Disord: No Neurological Disorders: Headaches /Migraines (ALONDRA PATRICIA MD) Reproductive System Hx Reproductive Disorders: Yes (UTERINE FIBROIDS, 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 (ALONDRA PATRICIA MD) Genitourinary History of Genitourinary Disor: No (ALONDRA PATRICIA MD) Gastrointestinal History of Gastrointestinal Di: No (ALONDRA PATRICIA MD) 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 History of 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 Dis: Yes 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 Disorders: Fibromyalgia (ALONDRA PATRICIA MD) Endocrine History of Endocrine Disorders: No (ALONDRA PATRICIA MD) HEENT History of HEENT Disorders: No Loss of Vision: Bilateral Hearing Impairment: Denies (ALONDRA PATRICIA MD) Cancer History of Cancer: No (ALONDRA PATRICIA MD) Psychosocial History of Psychiatric Problem: Yes (PANIC DISORDER) Behavioral Health Disorders: Anxiety, Suicide Attempts, Depression (ALONDRA PATRICIA MD) Integumentary History of Skin or Integumenta: No (ALONDRA PATRICIA MD) Blood Transfusions History of Blood Disorders: Yes (IRON DEFICIENCY ANEMIA) (ALONDRA PATRICIA MD) Family Medical History Family Medial History: Alcoholism 19 FATHER Diabetes mellitus 19 FATHER FH: breast cancer 19 MOTHER Hypertension 19 FATHER Psychosocial problem 19 MOTHER (ALONDRA PATRICIA MD) Family Medial History: Alcoholism 19 FATHER Diabetes mellitus 19 FATHER FH: breast cancer 19 MOTHER Hypertension 19 FATHER Psychosocial problem 19 MOTHER (SCOTTY KING) Physical Exam Vital Signs Vital Signs - First Documented 09/29/17 03:07 Temp 98.0 Pulse 92 Resp 20 B/P (MAP) 90/67 (75) Pulse Ox 96 O2 Delivery Room Air (SCOTTY KING) Vital Signs Capillary Refill : Less Than 3 Seconds (ALONDRA PATRICIA MD) General Appearance: No Apparent Distress, WD/WN HEENT: PERRL/EOMI, Normal ENT Inspection, Pharynx Normal Neck: Normal Inspection Respiratory: Lungs Clear, Normal Breath Sounds, No Accessory Muscle Use, No Respiratory Distress Cardiovascular: Regular Rate, Rhythm, No Edema, Normal Peripheral Pulses Gastrointestinal: Normal Bowel Sounds, Non Tender, Soft Extremity: Normal Inspection, No Pedal Edema Neurologic/Psychiatric: Alert, Oriented x3, Normal Mood/Affect, 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 Norm as Tested, Motor Weakness (mild to moderate weakness and tremor on exam and with standing.) Skin: Normal Color, Warm/Dry (ALONDRA PATRICIA MD) Progress/Results/Core Measures Suspected Sepsis Recent Fever Within 48 Hours: No Infection Criteria Present: None New/Unexplained Altered Menta: No Sepsis Screen: No Definite Risk Sepsis Diagnosis: SIRS Temperature:98.0 Pulse: 92 Respiratory Rate: 20 Laboratory Tests 09/29/17 04:40: White Blood Count 8.3 Blood Pressure 90 /67 Mean: 75 Laboratory Tests 09/29/17 04:40: Creatinine 0.77, Platelet Count 384, Total Bilirubin 0.6 (ALONDRA PATRICIA MD) Results/Orders Lab Results Laboratory Tests Test 09/29/17 04:40 09/29/17 05:03 Range/Units White Blood Count 8.3 4.3-11.0 10^3/uL Red Blood Count 4.73 4.35-5.85 10^6/uL Hemoglobin 11.5 11.5-16.0 G/DL Hematocrit 35 35-52 % Mean Corpuscular Volume 75 L 80-99 FL Mean Corpuscular Hemoglobin 24 L 25-34 PG Mean Corpuscular Hemoglobin Concent 33 32-36 G/DL Red Cell Distribution Width 13.7 10.0-14.5 % Platelet Count 384 130-400 10^3/uL Mean Platelet Volume 9.8 7.4-10.4 FL Neutrophils (%) (Auto) 61 42-75 % Lymphocytes (%) (Auto) 24 12-44 % Monocytes (%) (Auto) 11 0-12 % Eosinophils (%) (Auto) 3 0-10 % Basophils (%) (Auto) 1 0-10 % Neutrophils # (Auto) 5.1 1.8-7.8 X 10^3 Lymphocytes # (Auto) 2.0 1.0-4.0 X 10^3 Monocytes # (Auto) 0.9 0.0-1.0 X 10^3 Eosinophils # (Auto) 0.2 0.0-0.3 10^3/uL Basophils # (Auto) 0.1 0.0-0.1 10^3/uL Erythrocyte Sedimentation Rate 13 0-20 MM/HR Sodium Level 134 L 135-145 MMOL/L Potassium Level 3.3 L 3.6-5.0 MMOL/L Chloride Level 101 98-107 MMOL/L Carbon Dioxide Level 25 21-32 MMOL/L Anion Gap 8 5-14 MMOL/L Blood Urea Nitrogen 11 7-18 MG/DL Creatinine 0.77 0.60-1.30 MG/DL Estimat Glomerular Filtration Rate > 60 BUN/Creatinine Ratio 14 Glucose Level 110 H 70-105 MG/DL Calcium Level 9.2 8.5-10.1 MG/DL Magnesium Level 2.1 1.8-2.4 MG/DL Total Bilirubin 0.6 0.1-1.0 MG/DL Aspartate Amino Transf (AST/SGOT) 20 5-34 U/L Alanine Aminotransferase (ALT/SGPT) 32 0-55 U/L Alkaline Phosphatase 71 40-136 U/L Total Creatine Kinase 45 29-168 U/L C-Reactive Protein High Sensitivity 0.05 0.00-0.50 MG/DL Total Protein 7.6 6.4-8.2 GM/DL Albumin 4.4 3.2-4.5 GM/DL Urine Color YELLOW Urine Clarity SLIGHTLY CLOUDY Urine pH 6.5 5-9 Urine Specific [place] 1.015 L 1.016-1.022 Urine Protein 1+ H NEGATIVE Urine Glucose (UA) NEGATIVE NEGATIVE Urine Ketones 1+ H NEGATIVE Urine Nitrite NEGATIVE NEGATIVE Urine Bilirubin NEGATIVE NEGATIVE Urine Urobilinogen 4 H NORMAL MG/DL Urine Leukocyte Esterase 1+ H NEGATIVE Urine RBC (Auto) NEGATIVE NEGATIVE Urine RBC RARE /HPF Urine WBC RARE /HPF Urine Squamous Epithelial Cells >50 H /HPF Urine Crystals NONE /LPF Urine Bacteria FEW H /HPF Urine Casts NONE /LPF Urine Mucus SMALL H /LPF Urine Culture Indicated NO Urine Opiates Screen POSITIVE H NEGATIVE Urine Oxycodone Screen NEGATIVE NEGATIVE Urine Methadone Screen NEGATIVE NEGATIVE Urine Propoxyphene Screen NEGATIVE NEGATIVE Urine Barbiturates Screen NEGATIVE NEGATIVE Ur Tricyclic Antidepressants Screen NEGATIVE NEGATIVE Urine Phencyclidine Screen NEGATIVE NEGATIVE Urine Amphetamines Screen NEGATIVE NEGATIVE Urine Methamphetamines Screen NEGATIVE NEGATIVE Urine Benzodiazepines Screen NEGATIVE NEGATIVE Urine Cocaine Screen NEGATIVE NEGATIVE Urine Cannabinoids Screen NEGATIVE NEGATIVE (SCOTTY KING) My Orders Orders - SCOTTY KING Orthostatic Vital Signs (Adult (09/29/17 08:02) (SCOTTY KING) Medications Given in ED Current Medications Medications Dose Ordered Sig/Jose Route Start Time Stop Time Status Last Admin Dose Admin Lactated Ringer's 1,000 ml @ 0 mls/hr Q0M ONCE IV 09/29/17 07:28 09/29/17 07:30 DC 09/29/17 07:34 1,000 MLS/HR (SCOTTY KING) Vital Signs/I&O Vital Sign - Last 12Hours 09/29/17 09/29/17 09/29/17 03:07 07:27 09:24 Temp 98.0 Pulse 92 89 98 106 Resp 20 B/P (MAP) 90/67 (75) 97/64 (75) 119/82 (94) 95/55 (68) 117/73 (88) 89/64 (72) 104/74 (84) Pulse Ox 96 O2 Delivery Room Air (SCOTTY KING) Vital Signs/I&O Capillary Refill : Less Than 3 Seconds (ALONDRA PATRICIA MD) Blood Pressure Mean: 75 Progress Note : Time: 05:55 Progress Note Patient's labs demonstrated no major abnormalities. Patient still complained of being weak and shaky. A standing blood pressure was obtained and was 69/43. IV fluids are now infusing. (ALONDRA PATRICIA MD) Progress Note #1: Time: 07:30 Progress Note Assume care from Dr. Coyle at 0730. Reviewed patient's packet from her workup at outside hospital revealing a largely involved but benign workup including imaging, LP, thyroid etc. Current lab is not revealing. She she has a recent history of overdose of her tizanidine from this ER and pharmacy records indicate she refilled it 2 days ago but patient states she's not been misusing the medication. Blood pressure is still unsatisfactory for giving her a second liter of LR to help replete some of her potassium and other electrolytes that are mildly off. Initial set of orthostatic vital signs do not demonstrate any orthostatic drop her blood pressure rather just hypotension without significant elevation of heart rate when changing positions. Most likely she is having hypotension secondary to hypovolemia secondary to poor oral intake secondary to her many life stressors. We have discussed multiple techniques how she can address this. She does have outpatient follow-up in 4 days with counselor and her psychiatrist. She also has opportunity set up to get in to social situations , go out to eat with people and has friends and family local who have been helping her. She reports a 10 pound weight loss over the last 3 months when most of her social issues started to exacerbate. Her weight today is 49.4 kg. Progress Note #2: Time: 09:26 Progress Note The patient has received 2 bags of IV fluids and her blood pressure is much better 119/80 no orthostatic hypotension. The patient had some hesitation to get up and walk because she says shaking. Her tremulousness does not come on until asked her to get up and move and may be related to her anxiety. We've offered her hydroxyzine however she says she only uses at night to sleep. Nursing reports that after they got her up and walked her she was shaky at first but as they described a direct conversation her motor function are normal she did fine walking. No falls or stumbling. (SCOTTY KING) Departure Impression Impression: Primary Impression: Hypotension Qualified Codes: I95.89 - Other hypotension Additional Impressions: Dehydration Anxiety as acute reaction to exceptional stress Disposition: 01 HOME, SELF-CARE Condition: Improved Departure-Patient Inst. Decision time for Depature: 09:46 (SCOTTY KING) Referrals: [facility] (PCP) Primary Care Physician YUSRA JIMENEZ (Family) Primary Care Physician Patient Instructions: Low Blood Pressure (DC) Add. Discharge Instructions: Make sure you're drinking lots of fluids over the next several days to catch up. You can use sports drinks such as Powerade or Gatorade. Use your medications for her insomnia and anxiety as prescribed and he your follow-up appointments in 4 days with your counselor and Dr. Continue to work on stress management and stay actively involved with friends and family. All discharge instructions reviewed with patient and/or family. Voiced understanding. Copy Copies To 1: SHAWN FROST JOSHUA T MD Sep 29, 2017 06:56 SCOTTY KING Sep 29, 2017 07:33
[2017-09-29 07:27] VITALS: BP_SYST 89; BP_SYST 95; BP_SYST 97; BP_DIAS 55; BP_DIAS 64
[2017-09-29] MEDS ORDERED: LACTATED RINGERS 1,000 ML IV ONE (07:28)
[2017-09-29 09:24] VITALS: BP_SYST 104; BP_SYST 117; BP_SYST 119; BP_DIAS 73; BP_DIAS 74; BP_DIAS 82
[2017-09-29 09:54] VITALS: BP 108/70
== END 2017-09-29 09:54 | disposition home or self-care (01) ==
LOC: EDUNIT# 02:38 → ER 02:41
DX: I95.9 Hypotension, unspecified (principal); E86.0 Dehydration; F43.0 Acute stress reaction; F41.8 Other specified anxiety disorders; F32.9 Major depressive disorder, single episode, unspecified; D50.9 Iron deficiency anemia, unspecified; G43.909 Migraine, unspecified, not intractable, without status migrainosus; Z90.710 Acquired absence of both cervix and uterus; Z91.5 Personal history of self-harm; Z88.2 Allergy status to sulfonamides; Z88.1 Allergy status to other antibiotic agents
CPT/HCPCS: 36415; 80053; 80306; 81000; 82550; 83735; 85025; 85652; 86141; 96360; 96361

== ENCOUNTER 2018-11-22 08:26 | Outpatient (RCR) | payer MEDICAID ==
[~2018-11-22 08:26] MED LIST changes: +BUSP10TA95; +CLON1TAB13 PO; -CLON1TAB3 PO; +HYDR-3584; +TIZA4TAB3
== END 2018-12-05 10:38 | disposition home or self-care (01) ==
PROVIDERS: ATTEND Anesthesiology Pain Medicine
DX: M79.18 Myalgia, other site (principal); M79.7 Fibromyalgia; R26.89 Other abnormalities of gait and mobility

== ENCOUNTER → 2020-01-10 | Outpatient (CLI) | payer MEDICAID ==
[~2020-01-10] MED LIST changes: -DULO60CA58 PO; +DULO60CA59 PO; +MULT-567 PO; -MULT1TAB69 PO; -TIZA4TAB3; -TIZA4TAB3 PO; +TIZA4TAB4; +TIZA4TAB4 PO
== END ==
LOC: RAD 11:15
PROVIDERS: ATTEND Nurse Practitioner Family
DX: Z12.31 Encounter for screening mammogram for malignant neoplasm of breast (principal)
CPT/HCPCS: 77063; 77067

== ENCOUNTER 2020-03-06 05:36 | Outpatient (RCR) | payer MEDICAID ==
[~2020-03-06] VITALS: Ht 157 cm; Wt 63.6 kg
[2020-03-06] MEDS ORDERED: GBPN600T PO (14:13)
[2020-03-06] MEDS ORDERED: DULO60CA6 PO (14:13)
== END 2020-03-06 14:29 | disposition home or self-care (01) ==
LOC: PREOP 05:36
PROVIDERS: ATTEND Obstetrics & Gynecology
DX: Z01.818 Encounter for other preprocedural examination (principal)

== ENCOUNTER 2020-04-16 05:46 | Outpatient (CLI) | payer MEDICAID ==
[~2020-04-16] VITALS: Ht 157.5 cm; Wt 64.5 kg
[~2020-04-16 05:46] MED LIST changes: +GBPN600T PO
[2020-04-16] MEDS ORDERED: NALTREXONE HCL PO (11:20)
[2020-04-18] MEDS ORDERED: IBUP-844 PO (14:19)
[2020-04-18] MEDS ORDERED: ACET-93 PO (14:19)
[2020-04-18] MEDS ORDERED: OXC5T PO (14:19)
== END 2020-04-16 11:27 | disposition home or self-care (01) ==
LOC: PREOP 05:46
PROVIDERS: ATTEND Obstetrics & Gynecology
DX: Z01.818 Encounter for other preprocedural examination (principal)

== ENCOUNTER 2020-04-18 11:05 | Day surgery (SDC) | payer MEDICAID ==
[2020-04-18] VITALS (13 sets, daily range): BP systolic 100–119; BP diastolic 61–87
[~2020-04-18] VITALS: Ht 157.5 cm; Wt 64.5 kg
[~2020-04-18 11:05] MED LIST changes: +NALTREXONE HCL PO
[2020-04-18] MEDS ORDERED: NS (IVPB) 100 ML ONE (11:06)
[2020-04-18] MEDS ORDERED: VASOPRESSIN INJECTION 20 UNIT/ML VIAL ONE (11:06)
[2020-04-18] MEDS ORDERED: LIDOCAINE/EPI 1%-1:100,000 (XYLOCAINE) 20ML ONE (11:06)
[2020-04-18 11:28] LABS: CLARITY,URINE SL CLOUDY; COLOR,URINE ORANGE; GLUCOSE, URINE (UA) NEGATIVE (NEGATIVE); KETONES,URINE 1+ (NEGATIVE); LEUKOCYTE ESTERASE ,URINE NEGATIVE (NEGATIVE); NITRITE,URINE NEGATIVE (NEGATIVE); PROTEIN,URINE 1+ (NEGATIVE)
[2020-04-18] MEDS ORDERED: ceFAZolin INJECTION 1,000 MG in WATER (STERILE) FOR INJECTION 10 ML IV ONE (11:30)
[2020-04-18] MEDS ORDERED: fentaNYL INJECTION 100 MCG/2 ML AMP ONE (11:40)
[2020-04-18] MEDS ORDERED: LIDOCAINE PF 2% 5 ML (XYLOCAINE) VIAL ONE (11:40)
[2020-04-18] MEDS ORDERED: proPOfol 200 MG/20 ML (DIPRIVAN) VIAL IV ONE (11:40)
[2020-04-18] MEDS ORDERED: SEVOFLURANE (ULTANE) 15 ML INHAL SOLN ONE ×4 (11:40→13:57)
[2020-04-18] MEDS ORDERED: MIDAZOLAM 2 MG/2 ML (VERSED) VIAL ONE (11:40)
[2020-04-18] MEDS ORDERED: ONDANSETRON 4 MG/2 ML (SDV) Z0FRAN ONE (11:40)
[2020-04-18 11:45] LABS: BACTERIA,URINE MODERATE /HPF; BILIRUBIN,URINE 2+ (NEGATIVE)
[2020-04-18] MEDS: LACTATED RINGERS 1,000 ML IV PRN ×2 (11:45→15:39)
--- NOTE | 2020-04-18 11:55 | History & Physical-Surgical ---
HPO-Surgical History of Present Illness Chief Complaint: urinary incontinence Diagnosis/Surgical Indication: STRESS INCONTINENCE Procedure: SOLYX SLING, ANTERIOR COLPORRHAPHY (rescheduled from 03/14/20) Please see previous history and physical for additional information Date of Surgery: Apr 18, 2020 Weight (Pounds): 109 Weight (Ounces): 8.0 Height (Feet): 5 Height (Inches): 2.00 Allergies and Home Medications Allergies Coded Allergies: Sulfa (Sulfonamide Antibiotics) (Verified Allergy, Mild, HIVES, 03/06/20) amoxicillin (Verified Allergy, Mild, RASH, 03/06/20) Home Medications Duloxetine HCl 60 Mg Capsule.dr, 60 MG PO DAILY, (Reported) Gabapentin 600 Mg Tablet, 900 MG PO TID, (Reported) take 1.5 of 600mg [naltrexone hcl] , 4.5 ML PO HS, (Reported) Patient Home Medication List Home Medication List Reviewed: Yes Past Lcmcmln-Ivdkpw-Uvporn Hx Patient Social History Marrital Status: single Number of Children: 44 Employed/Student: employed Alcohol Use: Denies Use Smoking Status: Never a Smoker 2nd Hand Smoke Exposure: No Recent Foreign Travel: No Contact w/other who traveled: No Recent Hopitalizations: No Immunizations Up To Date Tetanus Booster (TDap): Unknown Date of Influenza Vaccine: Apr 23, 2019 Seasonal Allergies Seasonal Allergies: No Surgeries Yes (COLONOSCOPY, ENDOSCOPY) Hysterectomy Respiratory No Cardiovascular No Neurological Yes Headaches /Migraines Reproductive System Hx : 6 Hx Para: 3114 Hx Reproductive Disorders: Yes (UTERINE FIBROIDS, AUB) Sexually Transmitted Disease: No HIV/AIDS: 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 Genitourinary Yes (STRESS INCONTINENCE) Gastrointestinal No 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 Yes Fibromyalgia Endocrine History of Endocrine Disorders: No HEENT History of HEENT Disorders: Yes (GLASSES) Loss of Vision: Denies Hearing Impairment: Denies Cancer No Psychosocial History of Psychiatric Problem: Yes (PANIC DISORDER) Behavioral Health Disorders: Anxiety, Suicide Attempts, Depression Integumentary History of Skin or Integumenta: No Blood Transfusions History of Blood Disorders: Yes (IRON DEFICIENCY ANEMIA) Adverse Reaction to a Blood Tr: No (N/A) Family Medical History Family Hx: Alcoholism 19 FATHER Diabetes mellitus 19 FATHER FH: breast cancer 19 MOTHER Hypertension 19 FATHER Psychosocial problem 19 MOTHER Exam Vital Signs Capillary Refill : Labs Laboratory Tests Test 10/2/20 11:15 Range/Units Urine Color ORANGE Urine Clarity SL CLOUDY Urine pH 6.0 5-9 Urine Specific [place] 1.020 1.016-1.022 Urine Protein 1+ H NEGATIVE Urine Glucose (UA) NEGATIVE NEGATIVE Urine Ketones 1+ H NEGATIVE Urine Nitrite NEGATIVE NEGATIVE Urine Bilirubin 2+ H NEGATIVE Urine Urobilinogen >=8.0 < = 1.0 MG/DL Urine Leukocyte Esterase NEGATIVE NEGATIVE Urine RBC (Auto) NEGATIVE NEGATIVE Urine RBC NONE /HPF Urine WBC 2-5 /HPF Urine Squamous Epithelial Cells 10-25 H /HPF Urine Crystals NONE /LPF Urine Bacteria MODERATE H /HPF Urine Casts NONE /LPF Urine Mucus MODERATE H /LPF Urine Culture Indicated NO General Appearance: Alert Respiratory: Clear to Auscultation, Normal Air Movement Cardiovascular: Regular Rate, Normal S1, Normal S2 Assessment/Plan Assessment and Plan 1. Stress incontinence with Cystocele Plan - anterior colporrhaphy with PV sling. risks of procedure including infection, bleeding, injury to bowel, bladder and ureter explained to patient. Consents signed. See previous h&P Admission Diagnosis Admission Status: Observation CRYSTAL LAI DO Apr 18, 2020 11:55
[2020-04-18] MEDS ORDERED: ESTRADIOL VAGINAL CREAM 42.5 GM (ESTRACE) VG ONE (12:22)
--- NOTE | 2020-04-18 12:51 | Progress Note-Pre Operative ---
Pre-Operative Progress Note H&P Reviewed The H&P was reviewed, patient examined and no changes noted. Date Seen by Provider: Apr 18, 2020 Time Seen by Provider: 13:40 Date H&P Reviewed: Apr 18, 2020 Time H&P Reviewed: 12:30 Pre-Operative Diagnosis: stress incontinence, cystocele CRYSTAL LAI DO Apr 18, 2020 12:51
--- NOTE | 2020-04-18 14:06 | Operative Report ---
Operative Report Date of Procedure/Surgery Apr 18, 2020 Surgeon (s) CRYSTAL LAI DO Smelter Charger (s): NA Post-Operative Diagnosis cystocele Stress incontinence Procedure Performed Anterior colporrhaphy Pubovaginal sling, solyx Description of Procedure Anesthesia Type: General Estimated blood loss (mL): 100 Specimen(s) collected/removed none Packing: vaginal with estrace cream Description of the Procedure With informed consent the patient was taken to the operating room where general anesthesia was found to be adequate. She was then prepped and draped in the usual sterile fashion in the dorsolithotomy position. A weighted speculum was placed in the vagina and a lundberg catheter in the bladder. There was a large (3+) cystocele. Also absent uterus. There was minimal rectocele. The patient spontaneously leaks vagina and has a urethrocele, with > 45 degrees of rotation. The anterior vaginal epithelium was injected with dilute vasopressin as a means of hydro dissection. The midline was grasped with Allis clamps and a midline incision was made. I dissected the vaginal epithelium was dissected off of the underlying pubovesicular fascia. This was dissected laterally to the white line and up to the vaginal cuff. I then reduced the cystocele with interrupted stitches of 2-0 Vicryl in mattress fashion. This was done in two layers. I then trimmed the excess vaginal tissue and closed the defect with a running 2-0 Vicryl. I then made a 1 cm incision in the midline of the anterior vaginal wall, about 1.5 cm from the urethral meatus (midurethra) and then dissected laterally. The pubovaginal sling was then inserted in the standard fashion through the obtur ator space bilaterally. The Lundberg was now removed. I did cystoscopy after each throw of the trocar and there was no abnormal bladder pathology, the ureters were seen and were effluxing urine. I then left 400 ml urine in the bladder and performed a Crede maneuver. There was a small amount of leak, so the sling was tightened slightly before removing the trocar device. Once this was removed, the skin was closed with 4-0 monocryl in running fashion. There was good hemostasis. The catheter was returned to the bladder. the vagina was then packed with Estrace cream and vaginal packing. The patient was taken to the recovery room in stable condition. Sponge, lap, needle and instrument counts were correct times two. Findings of the Procedure 3+ cystocele > 45 degree rotation of urethra/urethrocele Absent uterus; minimal to no rectocele Allergies and Home Medications Allergies Coded Allergies: Sulfa (Sulfonamide Antibiotics) (Verified Allergy, Mild, HIVES, 03/06/20) amoxicillin (Verified Allergy, Mild, RASH, 03/06/20) Home Medications Acetaminophen 500 Mg Tablet, 1,000 MG PO Q8H PRN for PAIN-MILD (1-4) Prescribed by: CRYSTAL LAI on 04/18/201418 Duloxetine HCl 60 Mg Capsule.dr, 60 MG PO DAILY, (Reported) Gabapentin 600 Mg Tablet, 900 MG PO TID, (Reported) take 1.5 of 600mg Ibuprofen 600 Mg Tablet, 600 MG PO Q6HR PRN for PAIN-MILD (1-4) Prescribed by: CRYSTAL LAI on 04/18/201418 Oxycodone Hcl 5 Mg Tab, 5 MG PO Q4H PRN for PAIN-SEVERE (8-10) Prescribed by: CRYSTAL LAI on 04/18/20 141 [naltrexone hcl] , 4.5 ML PO HS, (Reported) Patient Home Medication List Home Medication List Reviewed: Yes CRYSTAL LAI DO Apr 18, 2020 14:06
[2020-04-18] MEDS ORDERED: D5 LR IV SOLUTION 1,000 ML IV SCH (14:14)
[2020-04-18] MEDS ORDERED: ONDANSETRON 4 MG/2 ML (SDV) Z0FRAN IVP PRN ×2 (14:15)
[2020-04-18] MEDS ORDERED: BENZOCAINE/MENTHOL (DERMOPLAST) 60 ML CAN TP PRN (14:15)
[2020-04-18] MEDS ORDERED: fentaNYL INJECTION 100 MCG/2 ML AMP IVP ONE (14:15)
[2020-04-18] MEDS ORDERED: HYDROmorphone 2 MG/ML VIAL (DILAUDID) IV ONE (14:15)
[2020-04-18] MEDS ORDERED: MEPERIDINE (DEMEROL) INJ 50 MG/ML IVP ONE (14:15)
[2020-04-18] MEDS ORDERED: morphine INJ 4 MG/ML 1 ML (VIAL/SYRINGE) IVP PRN (14:15)
[2020-04-18] MEDS ORDERED: KETOROLAC 30 MG/ML VIAL IVP ONE ×2 (14:15)
[2020-04-18] MEDS ORDERED: ACETAMINOPHEN 500 MG TAB (TYLENOL) PO PRN (14:15)
[2020-04-18] MEDS ORDERED: morphine INJ 10 MG/ML 1ML (SYR OR VIAL) IVP ONE (14:15)
[2020-04-18] MEDS ORDERED: PROMETHAZINE INJ 25 MG/ML (PHENERGAN) AMP IVP ONE (14:15)
[2020-04-18] MEDS ORDERED: morphine INJ 10 MG/ML 1ML (SYR OR VIAL) ONE (14:16)
[2020-04-18] MEDS ORDERED: KETOROLAC 30 MG/ML VIAL ONE (14:16)
[2020-04-18] MEDS ORDERED: IBUP-844 PO (14:19)
[2020-04-18] MEDS ORDERED: ACET-93 PO (14:19)
[2020-04-18] MEDS ORDERED: OXC5T PO (14:19)
--- NOTE | 2020-04-18 14:20 | Anesthesia-General Post-Op ---
General Patient Condition Mental Status/LOC: Same as Preop Cardiovascular: Satisfactory Nausea/Vomiting: Absent Respiratory: Satisfactory Pain: Controlled Complications: Absent Post Op Complications Complications None Follow Up Care/Instructions Patient Instructions None needed. Anesthesia/Patient Condition Patient Condition Patient is doing well, no complaints, stable vital signs, no apparent adverse anesthesia problems. No complications reported per nursing. ALVAREZ BARRETO CRNA Apr 18, 2020 14:20
--- NOTE | 2020-04-18 15:10 | NUR ---
MARCIA GEORGE admitted to room 3306-1, with an admitting diagnosis of post op A/P repair, on 04-18-20 from recovery via cart, accompanied by staff.MARCIA GEORGE introduced to surroundings, call light, bed controls, phone, TV, temperature control, lights, meal times, smoking policy, visitor policy, side rail policy, bathrooms and showers. Patient Rights given to patient in the handbook. MARCIA GEORGE verbalizes understanding that [facility] is not responsible for the loss or damage to any personal effects or valuables that are kept in the patients posession during their hospitalization. The following Patient Care Plans were discussed with the patient: Discharge Planning, pain management, postop care plan. MARCIA GEOGRE verbalizes understanding of Interdisciplinary Patient Education. Patient and/or family were informed about the Rapid Response Team and its purpose.
[2020-04-18] MEDS: KETOROLAC 30 MG/ML VIAL IVP SCH (20:37)
[2020-04-19] MEDS: KETOROLAC 30 MG/ML VIAL IVP SCH ×2 (02:37→07:57)
[2020-04-19 05:50] VITALS: BP 105/67
[2020-04-19 07:50] VITALS: BP 110/68
--- NOTE | 2020-04-19 07:50 | NUR ---
assisted up to bathroom with standby assistance. steady gait. denies dizziness or lightheadedness. voided 100cc of straw colored urine. demonstrated proper understanding of pericare supplies. dermoplast administered by patient as ordered 0800 vitals taken. medications given as ordered. breakfast tray delivered to bedside. fresh ice water placed at bedside.
[2020-04-19] MEDS ORDERED: DOCUSATE SODIUM 100 MG (COLACE) CAP PO SCH (09:00)
--- NOTE | 2020-04-19 10:12 | Progress Note ---
Standard Progress Note Progress Notes/Assess & Plan Date Seen by a Provider: Apr 19, 2020 Time Seen by a Provider: 10:10 Progress/Assessment & Plan this patient is without complaint. She is ambulating and tolerating oral diet. She reports good pain control. She has voided once since her catheter was removed for a total of 100 mL. She is not sure her bladder is incompletely. Vital Signs Date Time Temp Pulse Resp B/P (MAP) Pulse Ox O2 Delivery O2 Flow Rate FiO2 04/19/20 07:50 97 Room Air 04/19/20 07:50 36.3 90 20 110/68 (82) 97 Room Air 04/19/20 05:50 37.0 96 16 105/67 (80) 100 Room Air 04/18/20 23:49 36.8 99 16 100/64 (76) 95 Room Air 04/18/20 20:38 36.9 94 16 107/61 (76) 96 Room Air 04/18/20 19:49 Room Air 04/18/20 19:20 96 Room Air 2.00 04/18/20 17:15 36.9 98 16 100/70 (80) 98 Room Air 04/18/20 15:20 36.8 98 20 114/72 (86) 99 Room Air 04/18/20 15:20 99 Room Air 04/18/20 15:10 36.4 18 115/74 (88) 98 Nasal Cannula 2 04/18/20 15:10 Nasal Cannula 2 04/18/20 15:00 18 119/77 (91) 98 Nasal Cannula 2 04/18/20 14:57 Nasal Cannula 2 04/18/20 14:55 Nasal Cannula 2 04/18/20 14:51 Room Air 04/18/20 14:50 18 113/71 (85) 93 Room Air 04/18/20 14:43 Room Air 04/18/20 14:40 18 118/74 (89) 96 Room Air 04/18/20 14:35 OxyMask 3 04/18/20 14:30 18 115/79 (91) 100 OxyMask 6 04/18/20 14:20 18 116/64 (81) 100 OxyMask 6 04/18/20 14:20 OxyMask 6 04/18/20 14:10 18 112/87 (95) 99 OxyMask 6 04/18/20 14:08 OxyMask 6 04/18/20 14:08 36.9 14 108/74 (85) 98 OxyMask 6 04/18/20 11:15 36.6 98 16 117/84 (95) 99 Room Air I & O 04/19/20 07:00 Intake Total 860 ml Output Total 1000 ml Balance -140 ml vital signs are stable. Patient is afebrile. Abdomen is benign. Extremities are benign Assessment and plan Postoperative day number 1 status post anterior colpor rhaphy with pubovaginal sling procedure. Patient is convalescing well and consideration be given to discharge home when she is demonstrating adequate bladder function. Final Diagnosis cystocele and stress urinary incontinence RED VALENZUELA MD Apr 19, 2020 10:12
[2020-04-19 16:35] VITALS: BP 116/74
[2020-04-19] MEDS ORDERED: IBUPROFEN 600 MG (MOTRIN) TAB PO PRN (18:00)
== END 2020-04-19 18:15 | disposition home or self-care (01) ==
LOC: SDC 11:05 → WS 15:10 → SDC 04-19 18:15
PROVIDERS: ATTEND Obstetrics & Gynecology
DX: N81.10 Cystocele, unspecified (principal); N39.3 Stress incontinence (female) (male); F41.9 Anxiety disorder, unspecified; F32.9 Major depressive disorder, single episode, unspecified; G43.909 Migraine, unspecified, not intractable, without status migrainosus; D64.9 Anemia, unspecified; Z79.899 Other long term (current) drug therapy; Z88.2 Allergy status to sulfonamides; Z88.1 Allergy status to other antibiotic agents; Z90.710 Acquired absence of both cervix and uterus; Z83.3 Family history of diabetes mellitus; Z80.3 Family history of malignant neoplasm of breast
CPT/HCPCS: 81000; 84703; 87081; 94664

== ENCOUNTER 2020-06-10 17:46 | Emergency (ER) | payer MEDICAID ==
[~2020-06-10] VITALS: Ht 157 cm; Wt 63.5 kg
[~2020-06-10 17:46] MED LIST changes: +ACET-93 PO; +IBUP-844 PO; +OXC5T PO
--- NOTE | 2020-06-10 18:16 | ED Lower Extremity ---
General Chief Complaint: Lower Extremity Stated Complaint: L KNEE INJ Source: patient History of Present Illness Date Seen by Provider: Jun 10, 2020 Time Seen by Provider: 18:08 Initial Comments PT ARRIVES VIA POV, WANTING WHEELCHAIR ON ARRIVAL C/O LEFT KNEE INJURY STATES YESTERDAY, AROUND 1500, SHE SLIPPED ON CLOTHING ON THE FLOOR AND TWISTED LEFT KNEE DID NOT ACTUALLY FALL ON KNEE PUT ICE ON IT LAST NIGHT, AND TOOK 1 IBUPROFEN TODAY AT NOON--NO RELIEF NO PARESTHESIAS OR MOTOR DEFICITS NO PRIOR INJURIES OR PROBLEMS WITH THIS KNEE NO OTHER INJURIES FROM THE INCIDENT PCP: [facility] Allergies and Home Medications Allergies Coded Allergies: Sulfa (Sulfonamide Antibiotics) (Verified Allergy, Mild, HIVES, 03/06/20) amoxicillin (Verified Allergy, Mild, RASH, 03/06/20) Home Medications Acetaminophen 500 Mg Tablet, 1,000 MG PO Q8H PRN for PAIN-MILD (1-4) Prescribed by: CRYSTAL LAI on 04/18/20 141 Duloxetine HCl 60 Mg Capsule.dr, 60 MG PO DAILY, (Reported) Gabapentin 600 Mg Tablet, 900 MG PO TID, (Reported) take 1.5 of 600mg Ibuprofen 600 Mg Tablet, 600 MG PO Q6HR PRN for PAIN-MILD (1-4) Prescribed by: CRYSTAL LAI on 04/18/20 141 Oxycodone Hcl 5 Mg Tab, 5 MG PO Q4H PRN for PAIN-SEVERE (8-10) Prescribed by: CRYSTAL LAI on 04/18/20 141 [naltrexone hcl] , 4.5 ML PO HS, (Reported) Patient Home Medication List Home Medication List Reviewed: Yes Review of Systems Constitutional: no symptoms reported : No Control/STD Prophylaxis: Other (HYST) 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: see HPI Skin: no symptoms reported Psychiatric/Neurological: No Symptoms Reported Past Pwdldnw-Sigtya-Wjratm Hx Past Med/Social Hx: Reviewed and Corrections made Patient Social History Alcohol Use: Denies Use Recreational Drug Use: No Smoking Status: Never a Smoker 2nd Hand Smoke Exposure: No Recent Foreign Travel: No Contact w/Someone Who Travel: No Recent Hopitalizations: No Immunizations Up To Date Tetanus Booster (TDap): Unknown Date of Influenza Vaccine: Apr 23, 2019 Seasonal Allergies Seasonal Allergies: No Past Medical History Surgeries: Yes (COLONOSCOPY;BLADDER SURGERY/MESH; HYSTERECTOMY/OVARIES INTACT) Bladder Surgery, Hysterectomy Respiratory: No Cardiac: No Neurological: Yes Headaches /Migraines Reproductive Disorders: Yes (UTERINE FIBROIDS, AUB;HYSTERECTOMY/OVARIES INTACT) Female Reproductive Disorders: 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 Sexually Transmitted Disease: No HIV/AIDS: No Genitourinary: Yes (STRESS INCONTINENCE;BLADDER SURGERY WITH MESH) Gastrointestinal: No 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: Yes Fibromyalgia Endocrine: No HEENT: Yes (GLASSES) Loss of Vision: Denies Hearing Impairment: Denies Cancer: No Psychosocial: Yes (PANIC DISORDER) Anxiety, Suicide Attempts, Depression Integumentary: No Blood Disorders: Yes (IRON DEFICIENCY ANEMIA) Adverse Reaction/Blood Tranf: No (N/A) Family Medical History Alcoholism 19 FATHER Diabetes mellitus 19 FATHER FH: breast cancer 19 MOTHER Hypertension 19 FATHER Psychosocial problem 19 MOTHER Physical Exam Vital Signs Vital Signs - First Documented 06/10/20 18:15 Temp 37.7 Pulse 123 Resp 22 B/P (MAP) 115/79 (91) Pulse Ox 97 Capillary Refill : Height, Weight, BMI Height: 5'2.00" Weight: 109lbs. 8.0oz. 49.787819ha; 26.00 BMI Method:Stated General Appearance: WD/WN, no apparent distress Hips: left hip normal inspection Legs: left leg normal inspection Knees: left knee bone tenderness, left knee pain, left knee soft tissue tenderness, left knee other (TENDERNESS TO LATERAL AND INFERIOR ASPECT OF LEFT KNEE. NO OBVIOUS SWELLING. LIMITED ROM DUE TO PAIN, UNABLE TO FULLY ASSESS LI GAMENT LAXITY DUE TO PT DISCOMFORT. 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 nml as tested, no motor/sensory deficits, alert, normal mood/affect, oriented x 3 Skin: normal color, warm/dry; No ecchymosis Procedures/Interventions Splinting and Joint Reduction : Douglas wrap: Yes Immobilizers: 24 inch Knee Ordered: Crutches Progress/Results/Core Measures Results/Orders My Orders Orders - BASIM KITCHEN DO Knee, Left, 3 Views (06/10/20 18:05) Douglas Bandage (06/10/20 18:35) Crutches (06/10/20 18:35) Knee Immobilizer (06/10/20 18:35) Vital Signs/I&O 06/10/20 18:15 Temp 37.7 Pulse 123 Resp 22 B/P (MAP) 115/79 (91) Pulse Ox 97 Diagnostic Imaging Comments XRAYS LEFT KNEE--NO ACUTE PROCESS, PER RADIOLOGIST REPORT AT 1835 Reviewed: Reviewed by Me Departure Impression Primary Impression: Left knee sprain Disposition: HOME, SELF-CARE Condition: Stable Departure-Patient Inst. Referrals: [facility] (PCP) Primary Care Physician TERESA MOHAN APRN (Family) Primary Care Physician RASHAD MURO MD Patient Instructions: Going Up and Down Curbs or Stairs With a Walker or Crutches, How to Use Crutches, How to Use an Elastic Bandage, Knee Immobilizer (DC), Knee Sprain (DC) Add. Discharge Instructions: DOUGLAS WRAP, KNEE IMMOBILIZER AND CRUTCHES AT ALL TIMES ICE TO AREA AT 20 MINUTE INTERVALS ELEVATE LEG MUCH POSSIBLE FOLLOW UP WITH DR. MURO NEXT WEEK FOR FURTHER CARE All discharge instructions reviewed with patient and/or family. Voiced understanding. Scripts Meloxicam (Mobic) 15 Mg Tablet 15 MG PO DAILY, #10 TAB Prov: BASIM KITCHEN DO 06/10/20 Work/School Note: Work Release Form Date Seen in the Emergency Department: Jun 10, 2020 Restrictions: Need Release from Doctor BASIM KITCHEN DO Jun 10, 2020 18:16
--- NOTE | 2020-06-10 18:32 | Diagnostic Imaging Report ---
INDICATION: Slipped on floor, pain. FINDINGS: Three views of the left knee show no fracture, dislocation or acute appearing articular incongruity. IMPRESSION: No acute appearing abnormality. Dictated by: Dictated on workstation # [id number]
[2020-06-10] MEDS ORDERED: MELO15TA14 PO (18:38)
[2020-06-10 19:06] VITALS: BP 124/78
== END 2020-06-10 19:06 | disposition home or self-care (01) ==
LOC: EDUNIT# 17:46 → ER 17:48
DX: S83.92XA Sprain of unspecified site of left knee, initial encounter (principal); F41.9 Anxiety disorder, unspecified; F32.9 Major depressive disorder, single episode, unspecified; Z80.3 Family history of malignant neoplasm of breast; Z83.3 Family history of diabetes mellitus; Z82.49 Family history of ischemic heart disease and other diseases of the circulatory system; Z88.2 Allergy status to sulfonamides; Z88.1 Allergy status to other antibiotic agents; X50.1XXA Overexertion from prolonged static or awkward postures, initial encounter
CPT/HCPCS: 73562